=== PATIENT | female | born 1950 | race Caucasian/White ===

== ENCOUNTER 2022-12-03 11:03 | Outpatient (OUT) | payer MEDICARE, SELFPAY ==
[2022-12-03 11:54] LABS: Basophils Percent Auto 0.3 % (0.2-2.0); Eosinophils Absolute Auto 0.1 10^3/uL (0.0-0.7); Hematocrit 36.5 % (36.0-48.0); Hemoglobin 11.9 g/dL (12.0-16.0); Immature Granulocytes Abs Auto 0.01 10^3/uL (0.00-0.03); Immature Granulocytes Pct Auto 0.3 % (0.0-0.5); Lymphocytes Absolute Auto 0.7 10^3/uL (1.2-3.8); Lymphocytes Percent Auto 21.3 % (20.5-60.0); Mean Corpuscular HGB Conc 32.6 g/dL (29.9-35.2); Mean Corpuscular Hemoglobin 30.4 pg (26.7-34.0); Mean Corpuscular Volume 93.4 fL (81.0-99.0); Mean Platelet Volume 10.2 fL (9.5-13.5); Monocytes Absolute Auto 0.3 10^3/uL (0.3-0.8); Monocytes Percent Auto 9.8 % (1.7-12.0); Neutrophils Absolute Auto 2.3 10^3/uL (1.4-6.5); Neutrophils Percent Auto 66.3 % (43.0-75.0); Platelet Count 219 10^3/uL (150-450); Red Blood Count 3.91 10^6/uL (4.20-5.40); Red Cell Distribution Width 13.7 % (11.0-15.0); White Blood Count 3.5 10^3/uL (4.0-11.0)
[2022-12-03 12:03] LABS: Estimated Average Glucose 111 mg/dL; Glycohemoglobin A1C 5.5 % (4.5-6.2)
[2022-12-03 12:40] LABS: Alanine Aminotransferase 23 U/L (14-59); Albumin Globulin Ratio 1.4; Albumin Level 4.3 g/dL (3.4-5.0); Alkaline Phosphatase 48 U/L (46-116); Anion Gap 7.9; Aspartate Amino Transferase 24 U/L (15-37); BUN Creatinine Ratio 25.7; Bilirubin Total 0.4 mg/dL (0.2-1.0); Calcium 9.3 mg/dL (8.5-10.1); Carbon Dioxide 31.2 mmol/L (21.0-32.0); Chloride 105 mmol/L (98-107); Chol HDL Ratio 2.2; Cholesterol 197 mg/dL (<=200); Estimated GFR (African America >60 (>=60); Estimated GFR (Non-African Ame >60 (>=60); Free T3 2.46 pg/mL (2.18-3.98); Glucose 90 mg/dL (74-106); HDL Cholesterol 89 mg/dL (40-60); Potassium 4.1 mmol/L (3.5-5.1); Sodium 140 mmol/L (136-145); Thyroid Stimulating Hormone 2.049 uIU/mL (0.358-3.740); Total Protein 7.3 g/dL (6.4-8.2); Triglycerides 69 mg/dL (<=150); VLDL CHOLESTEROL 13.8 mg/dL
[2022-12-04 11:12] LABS: Insulin 2.7 uIU/mL (2.6-24.9)
== END 2022-12-03 11:04 | disposition home or self-care (01) ==
LOC: LAB 11:06
PROVIDERS: PCP Nurse Practitioner Family; Visit Provider Nurse Practitioner Family
DX: I10 Essential (primary) hypertension (principal)
CPT/HCPCS: 36415; 80053; 80061; 82306; 83036; 83525; 83540; 84436; 84443; 84481; 85025

== ENCOUNTER 2023-01-02 09:45 | Outpatient (OUT) | payer MEDICARE, SELFPAY ==
[2023-01-02 09:54] LABS: Basophils Percent Auto 0.2 % (0.2-2.0); Eosinophils Absolute Auto 0.1 10^3/uL (0.0-0.7); Eosinophils Percent Auto 2.1 % (0.9-7.0); Hematocrit 37.7 % (36.0-48.0); Hemoglobin 12.1 g/dL (12.0-16.0); Immature Granulocytes Abs Auto 0.01 10^3/uL (0.00-0.03); Immature Granulocytes Pct Auto 0.2 % (0.0-0.5); Lymphocytes Absolute Auto 0.9 10^3/uL (1.2-3.8); Lymphocytes Percent Auto 21.5 % (20.5-60.0); Mean Corpuscular HGB Conc 32.1 g/dL (29.9-35.2); Mean Corpuscular Hemoglobin 30.9 pg (26.7-34.0); Mean Corpuscular Volume 96.2 fL (81.0-99.0); Mean Platelet Volume 9.8 fL (9.5-13.5); Monocytes Absolute Auto 0.4 10^3/uL (0.3-0.8); Platelet Count 209 10^3/uL (150-450); Red Blood Count 3.92 10^6/uL (4.20-5.40); Red Cell Distribution Width 13.2 % (11.0-15.0); White Blood Count 4.4 10^3/uL (4.0-11.0)
== END 2023-01-02 09:46 | disposition home or self-care (01) ==
LOC: LAB 09:45
PROVIDERS: PCP Nurse Practitioner Family; Visit Provider Nurse Practitioner Family
DX: R79.89 Other specified abnormal findings of blood chemistry (principal)
CPT/HCPCS: 36415; 85025

== ENCOUNTER 2023-04-01 09:51 | Outpatient (OUT) | payer MEDICARE, SELFPAY ==
--- NOTE | 2023-04-01 09:55 | MM_ITS ---
Patient Name: DAVID DOUGLASS MR#: [id number] : 1950 Exam Date: 04/01/2023 Ordering Doctor: SRIRAM ALICEA CNP RADIOLOGY REPORT PROCEDURE: MM TOMOSYNTHESIS SCREENING BI COMPARISON: MG MAMM SCREEN 3D RUKHSANA CAD, 03/22/2021. MG MAMM SCREEN 3D RUKHSANA CAD, 03/26/2022. INDICATIONS: screening Calculator Name NCI Breast Cancer Risk Assessment Tool 5 Year Breast Cancer Risk 1.60% Lifetime Breast Cancer Risk 4.10% Personal Breast Cancer No Personal Ovarian Cancer No Treatments None Family Cancers Grandfather-paternal with breast cancer at age 70; Father with stomach cancer at age 55; Sister with lung cancer at age 50. LOCATION: [facility] BREAST COMPOSITION: Scattered areas fibroglandular density. FINDINGS: DIAGNOSTIC CATEGORY 2--BENIGN FINDING. NO CHANGE FROM COMPARISON. Scattered benign-appearing calcifications are present. RIGHT BREAST: No significant suspicious finding. Stable focal asymmetry upper outer quadrant. LEFT BREAST: No significant suspicious finding. RECOMMENDATIONS: ROUTINE MAMMOGRAM AND CLINICAL EVALUATION IN 12 MONTHS. PLEASE NOTE: A NORMAL MAMMOGRAM DOES NOT EXCLUDE THE POSSIBILITY OF BREAST CANCER. A CLINICALLY SUSPICIOUS PALPABLE LUMP SHOULD BE BIOPSIED. Dictated by: Sanju Pereira MD on 04/01/2023 at 11:20 Approved by: Sanju Pereira MD on 04/01/2023 at 11:21
== END 2023-04-01 09:52 | disposition home or self-care (01) ==
LOC: MAMMO 09:51
PROVIDERS: PCP Nurse Practitioner Family; Visit Provider Nurse Practitioner Family
DX: Z12.31 Encounter for screening mammogram for malignant neoplasm of breast (principal); Z80.3 Family history of malignant neoplasm of breast; Z80.0 Family history of malignant neoplasm of digestive organs; Z80.1 Family history of malignant neoplasm of trachea, bronchus and lung
CPT/HCPCS: 77063; 77067

== ENCOUNTER 2023-12-18 10:49 | Outpatient (OUT) | payer MEDICARE, SELFPAY ==
--- OUTSIDE RECORDS SUMMARY | 2023-12-18 11:07 | XMS_ITS | CCD ---
Author Organization [facility] Care Team Providers Care Planer Feeder Name Role Phone MCKENZIE GARCIA Unavailable Unavailable ELISHA JOSUE Unavailable Unavailable MCKENZIE GARCIA Unavailable Unavailable KRISTYN WATSON Attending Unavailable KRISTYN WATSON Consulting Unavailable SHIRLEY, AHMAD Admitting Unavailable DEANNE, SRIRAM Primary Care Unavailable STEVE, DR MARY Ren Consulting Unavailable DEANNE, SRIRAM Attending Unavailable DEANNE, SRIRAM Primary Care Unavailable DEANNE, SRIRAM Admitting Unavailable DEANNE, SRIRAM Consulting Unavailable DEANNE, SRIRAM Primary Care Unavailable SERGIO, DR RENEE Consulting Unavailable SERGIO, DR RENEE Admitting Unavailable DR THELMA SIN Attending Unavailable DEANNE, SRIRAM Primary Care Unavailable DEANNE, SRIRAM Attending Unavailable DEANNE, SRIRAM Admitting Unavailable DEANNE, SRIRAM Consulting Unavailable DEANNE, SRIRAM Primary Care Unavailable ANTONIO, DR JAIRO Pablo Consulting Unavailable DEANNE, SRIRAM Attending Unavailable DEANNE, SRIRAM Admitting Unavailable DEANNE, SRIRAM Consulting Unavailable DEANNE, SRIRAM Primary Care Unavailable DEANNE, SRIRAM Consulting Unavailable DEANNE, SRIRAM Attending Unavailable DEANNE, SRIRAM Admitting Unavailable DR THELMA SIN Consulting Unavailable DR THELMA SIN Admitting Unavailable DR THELMA SIN Attending Unavailable DEANNE, SRIRAM Primary Care Unavailable DEANNE, SRIRAM Attending Unavailable DEANNE, SRIRAM Admitting Unavailable DEANNE, SRIRAM Consulting Unavailable DEANNE, SRIRAM Primary Care Unavailable DEANNE, SRIRAM Admitting Unavailable DEANNE, SRIRAM Attending Unavailable DEANNE, SRIRAM Consulting Unavailable DEANNE, SRIRAM Primary Care Unavailable Problems Active Problems Problem Classification Problem Date Documented Da te Episodic/Chronic Deficiency and other anemia (5 sources) Anemia, unspecified; Translations: [ANEMIA UNSPECIFIED] Onset: 11-21-2021 Episodic Diseases of white blood cells (4 sources) Decreased white blood cell count, unspecified; Translations: [DECREASED WBC COUNT UNSPECIFIED] Onset: 12-08-2021 Chronic Disorders of lipid metabolism (1 source) Hyperlipidemia, unspecified; Translations: [HYPERLIPIDEMIA UNSPECIFIED] Onset: 11-21-2021 Chronic Menopausal disorders (1 source) Other primary ovarian failure; Translations: [OTHER PRIMARY OVARIAN FAILURE] Onset: 12-04-2021 Chronic Thyroid disorders (8 sources) Hypothyroidism, unspecified; 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] Onset: 06-26-2021 Chronic Past or Other Problems Problem Classification Problem Date Documented Da te Episodic/Chronic Diabetes mellitus without complication (1 source) Other abnormal glucose; Translations: [OTHER ABNORMAL GLUCOSE] Onset: 11-21-2021 Episodic Genitourinary symptoms and ill-defined conditions (4 sources) Hematuria, unspecified; Translations: [HEMATURIA UNSPECIFIED] Onset: 08-22-2021 Episodic Other bone disease and musculoskeletal deformities (4 sources) Other specified disorders of bone density and structure, unspecified site; Translations: [OTH D/O BONE DEN STRUCT UNS SITE] Onset: 11-30-2021 Episodic Other gastrointestinal disorders (4 sources) Diarrhea, unspecified; Translations: [DIARRHEA UNSPECIFIED] Onset: 09-26-2021 Episodic Urinary tract infections (4 sources) Urinary tract infection, site not specified; Translations: [UTI SITE NOT SPECIFIED] Onset: 09-01-2021 Episodic Results Test Name Value Interpretation Reference Range Facility MG MAMM SCREEN 3D RUKHSANA CADon 03-26-2022 MG MAMM SCREEN 3D RUKHSANA CAD Patient: MARIA DOUGLASS Exam Date: 03/26/2022 : 1950 Gender:F Ordering : SRIRAM ALICEA [facility] Admission #: [id number] Family : Order #: [id number] CLICK HERE TO VIEW EXAM RADIOLOGY REPORT PROCEDURE: MAMMOGRAM SCREENING 3D BILATERAL CAD COMPARISON: MG MAMM SCREEN RUKHSANA W CAD, 03/21/2020. MG MAMM SCREEN 3D RUKHSANA CAD, 03/22/2021. INDICATIONS: Screening mammography Calculator Name NCI Breast Cancer Risk Assessment Tool 5 Year Breast Cancer Risk 1.60% Lifetime Breast Cancer Risk 4.30% Personal Breast Cancer No Personal Ovarian Cancer No Treatments None Family Cancers Grandfather-paternal with breast cancer at age 70; Father with stomach cancer at age 55; Sister with lung cancer at age 50. LOCATION: [facility] BREAST COMPOSITION: Scattered areas fibroglandular density. FINDINGS: DIAGNOSTIC CATEGORY 2--BENIGN FINDING. NO CHANGE FROM COMPARISON. Scattered benign-appearing calcifications are present. Scattered benign-appearing lymph nodes are present. RIGHT BREAST: No significant suspicious finding. LEFT BREAST: No significant suspicious finding. RECOMMENDATIONS: ROUTINE MAMMOGRAM AND CLINICAL EVALUATION IN 12 MONTHS. PLEASE NOTE: A NORMAL MAMMOGRAM DOES NOT EXCLUDE THE POSSIBILITY OF BREAST CANCER. A CLINICALLY SUSPICIOUS PALPABLE LUMP SHOULD BE BIOPSIED. Dictated by: Mary Wilson MD on 03/26/2022 at 11:00 Approved by: Mary Wilson MD on 03/26/2022 at 11:02 Normal [facility] CBC AUTO DIFFon 01-08-2022 BASO # 0.0 103/ul Normal 0.0-0.1 [facility] Comment on above: Performed By: #### C BC #### [facility] [address] [place] [address] Dr. Ray Fabian Basophils/100 WBC (Bld) 0.5 % Normal 0.2-2.0 [facility] Comment on above: Performed By: #### C BC #### [facility] [address] [place] [address] Dr. Ray Fabian EO # 0.1 103/ul Normal 0.0-0.7 [facility] Comment on above: Performed By: #### C BC #### [facility] [address] [place] [address] Dr. Ray Fabian Eosinophils/100 WBC (Bld) 3.0 % Normal 0.9-7.0 [facility] Comment on above: Performed By: #### C BC #### [facility] [address] [address] [address] Ray Fabian Erythrocyte distribution width (RBC) [Ratio] 14.0 % Normal 11.0-15.0 [facility] Comment on above: Performed By: #### C BC #### [facility] [address] [place] [address] Dr. Ray Fabian Hematocrit (Bld) [Volume fraction] 37.6 % Normal 36.0-48.0 [facility] Comment on above: Performed By: #### C BC #### [facility] [address] [place] [address] Dr. Ray Fabian Hemoglobin (Bld) [Mass/Vol] 12.1 g/dL Normal 12.0-16.0 [facility] Comment on above: Performed By: #### C BC #### [facility] [address] [place] [address] Dr. Ray Fabian IG # 0.01 10e3/ul Normal 0.00-0.03 [facility] Comment on above: Performed By: #### C BC #### [facility] [address] [place] [address] Dr. Ray Fabian IG % 0.3 % Normal 0.0-0.5 [facility] Comment on above: Performed By: #### C BC #### [facility] [address] [place] [address] Dr. Ray Fabian LYMPH # 1.3 103/ul Normal 1.2-3.8 [facility] Comment on above: Performed By: #### C BC #### [facility] [address] [place] [address] Dr. Ray Fabian Lymphocytes/100 WBC (Bld) 32.9 % Normal 20.5-60.0 [facility] Comment on above: Performed By: #### C BC #### [facility] [address] [place] [address] Dr. Ray Fabian MANUAL DIFF REQ NO Normal [facility] Comment on above: Performed By: #### C BC #### [facility] [address] [place] [address] Dr. Ray Fabian MCH (RBC) [Entitic mass] 30.3 pg Normal 26.7-34.0 [facility] Comment on above: Performed By: #### C BC #### [facility] [address] [place] [address] Dr. Ray Fabian MCHC (RBC) [Mass/Vol] 32.2 g/dL Normal 29.9-35.2 [facility] Comment on above: Performed By: #### C BC #### [facility] [address] [address] [address] Ray Fabian MCV (RBC) [Entitic vol] 94.2 fL Normal 81.0-99.0 [facility] Comment on above: Performed By: #### C BC #### [facility] [address] [address] [address] Ray Fabian MONO # 0.4 103/ul Normal 0.3-0.8 [facility] Comment on above: Performed By: #### C BC #### [facility] [address] [address] [address] Ray Fabian Monocytes/100 WBC (Bld) 9.8 % Normal 1.7-12.0 [facility] Comment on above: Performed By: #### C BC #### [facility] [address] [address] [address] Ray Fabian NEUT # 2.1 103/ul Normal 1.4-6.5 [facility] Comment on above: Performed By: #### C BC #### [facility] [address] [place] [address] Dr. Ray Fabain Neutrophils/100 WBC (Bld) 53.5 % Normal 43.0-75.0 [facility] Comment on above: Performed By: #### C BC #### [facility] [address] [address] [address] Ray Fabian Platelet mean volume (Bld) [Entitic vol] 9.7 fL Normal 9.5-13.5 [facility] Comment on above: Performed By: #### C BC #### [facility] [address] [place] [address] Dr. Ray Fabian PLT 205 103/ul Normal 150-450 [facility] Comment on above: Performed By: #### C BC #### [facility] [address] [address] [address] Ray Fabian RBC 3.99 106/ul Critically low 4.20-5.40 [facility] Comment on above: Performed By: #### C BC #### [facility] [address] [address] [address] Ray Fabian WBC 4.0 103/ul Normal 4.0-11.0 [facility] Comment on above: Performed By: #### C BC #### [facility] [address] [place] [address] Dr. Ray Fabian CBC AUTO DIFFon 12-08-2021 BASO # 0.0 103/ul Normal 0.0-0.1 [facility] Comment on above: Performed By: #### C BC #### [facility] [address] [place] [address] Dr. Ray Fabian Basophils/100 WBC (Bld) 0.5 % Normal 0.2-2.0 [facility] Comment on above: Performed By: #### C BC #### [facility] [address] [place] [address] Dr. Ray Fabian EO # 0.1 103/ul Normal 0.0-0.7 [facility] Comment on above: Performed By: #### C BC #### [facility] [address] [place] [address] Dr. Ray Fabian Eosinophils/100 WBC (Bld) 2.7 % Normal 0.9-7.0 [facility] Comment on above: Performed By: #### C BC #### [facility] [address] [place] [address] Dr. Ray Fabian Erythrocyte distribution width (RBC) [Ratio] 14.9 % Normal 11.0-15.0 [facility] Comment on above: Performed By: #### C BC #### [facility] [address] [place] [address] Dr. Ray Fabian Hematocrit (Bld) [Volume fraction] 35.3 % Critically low 36.0-48.0 [facility] Comment on above: Performed By: #### C BC #### [facility] [address] [place] [address] Dr. Ray Fabian Hemoglobin (Bld) [Mass/Vol] 11.4 g/dL Critically low 12.0-16.0 [facility] Comment on above: Performed By: #### C BC #### [facility] [address] [place] [address] Dr. Ray Fabian IG # 0.00 10e3/ul Normal 0.00-0.03 [facility] Comment on above: Performed By: #### C BC #### [facility] [address] [place] [address] Dr. Ray Fabian IG % 0.0 % Normal 0.0-0.5 [facility] Comment on above: Performed By: #### C BC #### [facility] [address] [place] [address] Dr. Ray Fabian LYMPH # 1.0 103/ul Critically low 1.2-3.8 [facility] Comment on above: Performed By: #### C BC #### [facility] [address] [place] [address] Dr. Ray Fabian Lymphocytes/100 WBC (Bld) 25.9 % Normal 20.5-60.0 [facility] Comment on above: Performed By: #### C BC #### [facility] [address] [place] [address] Dr. Ray Fabian MANUAL DIFF REQ NO Normal [facility] Comment on above: Performed By: #### C BC #### [facility] [address] [place] [address] Dr. Ray Fabian MCH (RBC) [Entitic mass] 29.8 pg Normal 26.7-34.0 [facility] Comment on above: Performed By: #### C BC #### [facility] [address] [place] [address] Dr. Ray Fabian MCHC (RBC) [Mass/Vol] 32.3 g/dL Normal 29.9-35.2 [facility] Comment on above: Performed By: #### C BC #### [facility] [address] [place] [address] Dr. Ray Fabian MCV (RBC) [Entitic vol] 92.4 fL Normal 81.0-99.0 [facility] Comment on above: Performed By: #### C BC #### [facility] [address] [place] [address] Dr. Ray Fabian MONO # 0.3 103/ul Normal 0.3-0.8 [facility] Comment on above: Performed By: #### C BC #### [facility] [address] [place] [address] Dr. Ray Fabian Monocytes/100 WBC (Bld) 8.4 % Normal 1.7-12.0 [facility] Comment on above: Performed By: #### C BC #### [facility] [address] [place] [address] Dr. Ray Fabian NEUT # 2.3 103/ul Normal 1.4-6.5 [facility] Comment on above: Performed By: #### C BC #### [facility] [address] [place] [address] Dr. Ray Fabian Neutrophils/100 WBC (Bld) 62.5 % Normal 43.0-75.0 [facility] Comment on above: Performed By: #### C BC #### [facility] [address] [place] [address] Dr. Ray Fabian Platelet mean volume (Bld) [Entitic vol] 9.7 fL Normal 9.5-13.5 [facility] Comment on above: Performed By: #### C BC #### [facility] [address] [place] [address] Dr. Ray Fabian PLT 218 103/ul Normal 150-450 [facility] Comment on above: Performed By: #### C BC #### [facility] [address] [place] [address] Dr. Ray Fabian RBC 3.82 106/ul Critically low 4.20-5.40 [facility] Comment on above: Performed By: #### C BC #### [facility] [address] [place] [address] Dr. Ray Fabian WBC 3.7 103/ul Critically low 4.0-11.0 [facility] Comment on above: Performed By: #### C BC #### [facility] [address] [place] [address] Dr. Ray Fabian XR DEXA BONE DENSITYon 11-30 XR DEXA BONE DENSITY EXAMINATION: XR DEXA BONE DENSITY, 11/30/2021 9:03 AM EDT HISTORY: Bone density finding COMPARISON: DEXA bone densitometry 12/02/2018 TECHNIQUE: Dual-energy X-ray absorptiometry (DEXA) bone density study performed for the axial skeleton. FINDINGS: SPINE ANALYSIS: Average bone mineral density is 1.239 g/cm2. T-score (standard deviation relative to young adult mean): 0.5 . -2.3% change since prior study. HIP ANALYSIS: Lowest bone mineral density is within the right femoral trochanter, 0.762 g/cm2. T-score (standard deviation relative to young adult mean): -0.8 . +1.9% change since prior study. IMPRESSION: [employer] Classification: Normal - Low Fracture Risk Electronically authenticated by: JAIRO ALVAREZ Date: 2021-11-30 11:50 Normal [facility] INSULINon 11-21-2021 Insulin 3.9 uIU/mL Normal 2.6-24.9 [facility] Comment on above: Performed By: #### C BC #### [facility] [address] [place] [address] Dr. Ray Fabian T4, T3U, FTI LABCORPon 11-21 Free Thyroxine Index 1.9 Normal 1.2-4.9 [facility] Comment on above: Performed By: #### C BC #### [facility] [address] [place] [address] Dr. Ray Fabian T3 Uptake 27 % Normal 24-39 [facility] Comment on above: Performed By: #### C BC #### [facility] [address] [place] [address] Dr. aRy Fabian T4 [Mass/Vol] 6.9 ug/dL Normal 4.5-12.0 [facility] Comment on above: Performed By: #### C BC #### [facility] [address] [place] [address] Dr. Ray Fabian CBC AUTO DIFFon 11-20-2021 BASO # 0.0 103/ul Normal 0.0-0.1 [facility] Comment on above: Performed By: #### C BC #### [facility] [address] [place] [address] Dr. Ray Fabian Basophils/100 WBC (Bld) 0.3 % Normal 0.2-2.0 [facility] Comment on above: Performed By: #### C BC #### [facility] [address] [place] [address] Dr. Ray Fabian EO # 0.1 103/ul Normal 0.0-0.7 [facility] Comment on above: Performed By: #### C BC #### [facility] [address] [place] [address] Dr. Ray Fabian Eosinophils/100 WBC (Bld) 2.4 % Normal 0.9-7.0 [facility] Comment on above: Performed By: #### C BC #### [facility] [address] [place] [address] Dr. Ray Fabian Erythrocyte distribution width (RBC) [Ratio] 14.7 % Normal 11.0-15.0 [facility] Comment on above: Performed By: #### C BC #### [facility] [address] [place] [address] Dr. Ray Fabian Hematocrit (Bld) [Volume fraction] 40.0 % Normal 36.0-48.0 [facility] Comment on above: Performed By: #### C BC #### [facility] [address] [place] [address] Dr. Ray Fabian Hemoglobin (Bld) [Mass/Vol] 13.0 g/dL Normal 12.0-16.0 [facility] Comment on above: Performed By: #### C BC #### [facility] [address] [place] [address] Dr. Ray Fabian IG # 0.01 10e3/ul Normal 0.00-0.03 [facility] Comment on above: Performed By: #### C BC #### [facility] [address] [place] [address] Dr. Ray Fabian IG % 0.3 % Normal 0.0-0.5 [facility] Comment on above: Performed By: #### C BC #### [facility] [address] [address] [address] Ray Fabian LYMPH # 1.1 103/ul Critically low 1.2-3.8 [facility] Comment on above: Performed By: #### C BC #### [facility] [address] [place] [address] Dr. Ray Fabian Lymphocytes/100 WBC (Bld) 31.8 % Normal 20.5-60.0 [facility] Comment on above: Performed By: #### C BC #### [facility] [address] [place] [address] Dr. Ray Fabian MANUAL DIFF REQ NO Normal [facility] Comment on above: Performed By: #### C BC #### [facility] [address] [place] [address] Dr. Ray Fabian MCH (RBC) [Entitic mass] 29.7 pg Normal 26.7-34.0 [facility] Comment on above: Performed By: #### C BC #### [facility] [address] [place] [address] Dr. Ray Fabian MCHC (RBC) [Mass/Vol] 32.5 g/dL Normal 29.9-35.2 [facility] Comment on above: Performed By: #### C BC #### [facility] [address] [place] [address] Dr. Ray Fabian MCV (RBC) [Entitic vol] 91.3 fL Normal 81.0-99.0 [facility] Comment on above: Performed By: #### C BC #### [facility] [address] [place] [address] Dr. Ray Fabian MONO # 0.3 103/ul Normal 0.3-0.8 [facility] Comment on above: Performed By: #### C BC #### [facility] [address] [place] [address] Dr. Ray Fabian Monocytes/100 WBC (Bld) 7.6 % Normal 1.7-12.0 [facility] Comment on above: Performed By: #### C BC #### [facility] [address] [address] [address] Ray Fabian NEUT # 2.0 103/ul Normal 1.4-6.5 [facility] Comment on above: Performed By: #### C BC #### [facility] [address] [address] [address] Ray Fabian Neutrophils/100 WBC (Bld) 57.6 % Normal 43.0-75.0 [facility] Comment on above: Performed By: #### C BC #### [facility] [address] [address] [address] Ray Fabian Platelet mean volume (Bld) [Entitic vol] 9.6 fL Normal 9.5-13.5 [facility] Comment on above: Performed By: #### C BC #### [facility] [address] [place] [address] Dr. Ray Fabian PLT 209 103/ul Normal 150-450 [facility] Comment on above: Performed By: #### C BC #### [facility] [address] [address] [address] Ray Fabian RBC 4.38 106/ul Normal 4.20-5.40 [facility] Comment on above: Performed By: #### C BC #### [facility] [address] [address] [address] Ray Fabian WBC 3.4 103/ul Critically low 4.0-11.0 [facility] Comment on above: Performed By: #### C BC #### [facility] [address] [place] [address] Dr. Ray Fabian GLYCOHEMOGLOBIN A1Con 2021 ADA RECOMMENDATION SEE BELOW Normal [facility] Comment on above: Result Comment: ADA RECOMMENDED LIMIT 4.0 - 6.0 ADA THERAPEUTIC TARGET < 7.0 ACTION SUGGESTED > 7.0 Performed By: #### A 1C #### [facility] [address] [place] [address] Dr. Ray Fabian Glucose [Mass/Vol] 120 mg/dL Normal [facility] Comment on above: Performed By: #### A 1C #### [facility] [address] [address] [address] Ray Fabian HbA1c (Bld) [Mass fraction] 5.8 % Normal 4.5-6.2 [facility] Comment on above: Performed By: #### A 1C #### [facility] [address] [place] [address] Dr. Ray Fabian IRONon 11-20-2021 Iron [Mass/Vol] 96.0 ug/dL Normal 50.0-170.0 [facility] Comment on above: Performed By: #### I TASHIA #### [facility] [address] [place] [address] Dr. Ray Fabian LIPID PROFILEon 11-20-2021 CHOL-HDL RATIO NORM SEE BELOW Normal [facility] Comment on above: Result Comment: 3.3 - 4.4 LOW RISK 4.4 - 7.1 AVERAGE RISK 7.1 - 11.0 MODERATE RISK >11.0 HIGH RISK Performed By: #### C BC #### [facility] [address] [place] [address] Dr. Ray Fabian Cholesterol [Mass/Vol] 221 mg/dL Critically high <=200 [facility] Comment on above: Performed By: #### C BC #### [facility] [address] [place] [address] Dr. Ray Fabian Cholesterol in HDL [Mass/Vol] 88 mg/dL Critically high 40-60 [facility] Comment on above: Performed By: #### C BC #### [facility] [address] [place] [address] Dr. Ray Fabian Cholesterol in LDL [Mass/Vol] 116.4 mg/dL Normal [facility] Comment on above: Performed By: #### C BC #### [facility] [address] [place] [address] Dr. Ray Fabian Cholesterol.total/ Cholesterol in HDL [Mass ratio] 2.5 {ratio} Normal [facility] Comment on above: Performed By: #### C BC #### [facility] [address] [place] [address] Dr. Ray Fabian HDL NORMAL > or = 60 mg/dl - LO W CARDIOVASCULAR RISK <40 mg/dl - HIGH CARDIOVASCULAR RISK Normal [facility] Comment on above: Performed By: #### C BC #### [facility] [address] [place] [address] Dr. Ray Fabian LDL CALC NORMAL SEE BELOW Normal [facility] Comment on above: Result Comment: <100 mg/dl OPTIMAL 100 - 129 mg/dl NEAR OR ABOVE OPTIMAL 130 - 159 mg/dl BORDERLINE HIGH 160 - 189 mg/dl HIGH >190 mg/dl VERY HIGH Performed By: #### C BC #### [facility] [address] [place] [address] Dr. Ray Fabian Triglyceride [Mass/Vol] 83 mg/dL Normal <=150 [facility] Comment on above: Performed By: #### C BC #### [facility] [address] [place] [address] Dr. Ray Fabian VLDL CALC 16.6 mg/dL Normal [facility] Comment on above: Performed By: #### C BC #### [facility] [address] [place] [address] Dr. Ray Fabian PROF 14(COMP METB)on 022 Albumin [Mass/Vol] 4.3 g/dL Normal 3.4-5.0 [facility] Comment on above: Performed By: #### C BC #### [facility] [address] [place] [address] Dr. Ray Fabian Albumin/Globulin [Mass ratio] 1.4 {ratio} Normal [facility] Comment on above: Performed By: #### C BC #### [facility] [address] [place] [address] Dr. Ray Fabian ALP [Catalytic activity/Vol] 50 U/L Normal 46-116 [facility] Comment on above: Performed By: #### C BC #### [facility] [address] [place] [address] Dr. Ray Fabian ALT [Catalytic activity/Vol] 24 U/L Normal 14-59 [facility] Comment on above: Performed By: #### C BC #### [facility] [address] [place] [address] Dr. Ray Fabian Anion gap [Moles/Vol] 12.0 mmol/L Normal [facility] Comment on above: Performed By: #### C BC #### [facility] [address] [place] [address] Dr. Ray Fabian AST [Catalytic activity/Vol] 20 U/L Normal 15-37 [facility] Comment on above: Performed By: #### C BC #### [facility] [address] [place] [address] Dr. Ray Fabian Bilirubin [Mass/Vol] 0.6 mg/dL Normal 0.2-1.0 [facility] Comment on above: Performed By: #### C BC #### [facility] [address] [place] [address] Dr. Ray Fabian Calcium [Mass/Vol] 9.3 mg/dL Normal 8.5-10.1 [facility] Comment on above: Performed By: #### C BC #### [facility] [address] [place] [address] Dr. Ray Fabian Chloride [Moles/Vol] 103 mmol/L Normal 98-107 [facility] Comment on above: Performed By: #### C BC #### [facility] [address] [place] [address] Dr. Ray Fabian CO2 [Moles/Vol] 30.1 mmol/L Normal 21.0-32.0 [facility] Comment on above: Performed By: #### C BC #### [facility] [address] [place] [address] Dr. Ray Fabian Creatinine [Mass/Vol] 0.76 mg/dL Normal 0.55-1.02 [facility] Comment on above: Performed By: #### C BC #### [facility] [address] [place] [address] Dr. Ray Fabian EGFR-AF OMANI >60 Normal >=60 [facility] Comment on above: Performed By: #### C BC #### [facility] [address] [place] [address] Dr. Ray Fabian EGFR-NON AF OMANI >60 Normal >=60 [facility] Comment on above: Performed By: #### C BC #### [facility] [address] [address] [address] Ray Fabian Globulin (S) [Mass/Vol] 3.0 g/dL Normal [facility] Comment on above: Performed By: #### C BC #### [facility] [address] [address] [address] Ray Fabian Glucose [Mass/Vol] 101 mg/dL Normal 74-106 [facility] Comment on above: Performed By: #### C BC #### [facility] [address] [address] [address] Ray Fabian Potassium [Moles/Vol] 4.1 mmol/L Normal 3.5-5.1 [facility] Comment on above: Performed By: #### C BC #### [facility] [address] [place] [address] Dr. Ray Fabian Protein [Mass/Vol] 7.3 g/dL Normal 6.4-8.2 [facility] Comment on above: Performed By: #### C BC #### [facility] [address] [place] [address] Dr. Ray Fabian Sodium [Moles/Vol] 141 mmol/L Normal 136-145 [facility] Comment on above: Performed By: #### C BC #### [facility] [address] [place] [address] Dr. Ray Fabian Urea nitrogen [Mass/Vol] 16.0 mg/dL Normal 7.0-18.0 [facility] Comment on above: Performed By: #### C BC #### [facility] [address] [place] [address] Dr. Ray Fabian Urea nitrogen/Creatinin e [Mass ratio] 21.1 mg/mg Normal [facility] Comment on above: Performed By: #### C BC #### [facility] [address] [place] [address] Dr. Ray Fabian TSHon 11-20-2021 TSH 3.003 uIU/mL Normal 0.358-3.740 [facility] Comment on above: Performed By: #### C BC #### [facility] [address] [place] [address] Dr. Ray Fabian GI PANEL (PCR)on 09-26-2021 Adenovirus F 40/41 Not detected Normal NOT DETECTED [facility] Comment on above: Performed By: #### G IPANEL #### [facility] [address] [place] [address] Dr. Ray Fabian Astrovirus Not detected Normal NOT DETECTED [facility] Comment on above: Performed By: #### G IPANEL #### [facility] [address] [place] [address] Dr. Ray Benavidez. Diff toxin A/B Not detected Normal NOT DETECTED [facility] Comment on above: Performed By: #### G IPANEL #### [facility] [address] [place] [address] Dr. Ray Fabian Campylobacter Not detected Normal NOT DETECTED [facility] Comment on above: Performed By: #### G IPANEL #### [facility] [address] [place] [address] Dr. Ray Fabian Cryptosporidium Not detected Normal NOT DETECTED [facility] Comment on above: Performed By: #### G IPANEL #### [facility] [address] [place] [address] Dr. Ray Fabian Cyclos. Cayetanensis Not detected Normal NOT DETECTED [facility] Comment on above: Performed By: #### G IPANEL #### [facility] [address] [place] [address] Dr. Ray Fabian E. Coli O157 Not Applicable Normal Not Applicable [facility] Comment on above: Performed By: #### G IPANEL #### [facility] [address] [place] [address] Dr. Ray Fabian E. histolytica Not detected Normal NOT DETECTED [facility] Comment on above: Performed By: #### G IPANEL #### [facility] [address] [place] [address] Dr. Ray Fabian EAEC Not detected Normal NOT DETECTED [facility] Comment on above: Performed By: #### G IPANEL #### [facility] [address] [place] [address] Dr. Ray Fabian EIEC Not detected Normal NOT DETECTED [facility] Comment on above: Performed By: #### G IPANEL #### [facility] [address] [place] [address] Dr. Ray Fabian EPEC Not detected Normal NOT DETECTED [facility] Comment on above: Performed By: #### G IPANEL #### [facility] [address] [place] [address] Dr. Ray Fabian ETEC Not detected Normal NOT DETECTED [facility] Comment on above: Performed By: #### G IPANEL #### [facility] [address] [place] [address] Dr. Ray Ardon Lamblia Not detected Normal NOT DETECTED [facility] Comment on above: Performed By: #### G IPANEL #### [facility] [address] [place] [address] Dr. Ray CHAVEZ CONTROLS PASSED Normal [facility] Comment on above: Performed By: #### G IPANEL #### [facility] [address] [place] [address] Dr. Ray BURT HEADER GI PANEL BACTERIA Normal [facility] Comment on above: Performed By: #### G IPANEL #### [facility] [address] [place] [address] Dr. Ray DORADO ECOLI GI PANEL DIARRHEAGEN IC E.COLI / SHIGELLA Normal [facility] Comment on above: Performed By: #### G IPANEL #### [facility] [address] [place] [address] Dr. Ray DORADO INFO SEE BELOW [facility] Comment on above: Result Comment: EAEC - Enteroaggregative E. Coli EPEC- Enteropathogenic E. Coli ETEC- Enterotoxigenic E. Coli lt/st STEC- Shigella-like toxin-producing E. Coli stx1/stx2 EIEC- Shigella/Enteroinvasive E. Coli Performed By: #### G IPANEL #### [facility] [address] [address] [address] Ray DORADO PARASITES GI PANEL PARASITES Normal [facility] Comment on above: Performed By: #### G IPANEL #### [facility] [address] [place] [address] Dr. Ray DORADO VIRUS GI PANEL VIRUSES Normal [facility] Comment on above: Performed By: #### G IPANEL #### [facility] [address] [place] [address] Dr. Ray Fabian Norovirus GI/GII Not detected Normal NOT DETECTED [facility] Comment on above: Performed By: #### G IPANEL #### [facility] [address] [place] [address] Dr. Ray Fbaian P. Shigelloides Not detected Normal NOT DETECTED [facility] Comment on above: Performed By: #### G IPANEL #### [facility] [address] [place] [address] Dr. Ray Fabian Rotavirus A Not detected Normal NOT DETECTED [facility] Comment on above: Performed By: #### G IPANEL #### [facility] [address] [place] [address] Dr. Ray Fabian Salmonella Not detected Normal NOT DETECTED [facility] Comment on above: Performed By: #### G IPANEL #### [facility] [address] [place] [address] Dr. Ray Fabian Sapovirus Not detected Normal NOT DETECTED [facility] Comment on above: Performed By: #### G IPANEL #### [facility] [address] [place] [address] Dr. Ray Fabian STEC Not detected Normal NOT DETECTED [facility] Comment on above: Performed By: #### G IPANEL #### [facility] [address] [place] [address] Dr. Ray Fabian Vibrio Not detected Normal NOT DETECTED [facility] Comment on above: Performed By: #### G IPANEL #### [facility] [address] [place] [address] Dr. Ray Fabian Vibrio Cholera Not detected Normal NOT DETECTED [facility] Comment on above: Performed By: #### G IPANEL #### [facility] [address] [place] [address] Dr. Ray Will Enterocolitica Not detected Normal NOT DETECTED [facility] Comment on above: Performed By: #### G IPANEL #### [facility] [address] [place] [address] Dr. Ray Fabian CULTURE URINEon 09-01-2021 CULTURE URINE Culture Observations : No growth Normal [facility] Comment on above: Performed By: #### C BC #### [facility] [address] [place] [address] Dr. Ray Fabian UA RANDOM W/MICROSCOPICon BACTERIA NONE SEEN Normal NONE SEEN [facility] Comment on above: Performed By: #### U AMIC #### [facility] [address] [place] [address] Dr. Ray Fabian Bilirubin Ql (U) Negative Normal NEGATIVE [facility] Comment on above: Performed By: #### U AMIC #### [facility] [address] [place] [address] Dr. Ray Fabian CAST NONE SEEN Normal NONE SEEN [facility] Comment on above: Performed By: #### U AMIC #### [facility] [address] [place] [address] Dr. Ray Fabian Clarity (U) CLEAR Normal CLEAR [facility] Comment on above: Performed By: #### U AMIC #### [facility] [address] [place] [address] Dr. Ray Fabian Color (U) YELLOW Normal YELLOW [facility] Comment on above: Performed By: #### U AMIC #### [facility] [address] [place] [address] Dr. Ray Fabian Crystals LM Nom (Urine sed) NONE SEEN Normal NONE SEEN [facility] Comment on above: Performed By: #### U AMIC #### [facility] [address] [place] [address] Dr. Ray Fabian Epithelial cells LM Ql (Urine sed) NONE SEEN Normal NONE SEEN /RARE [facility] Comment on above: Performed By: #### U AMIC #### [facility] [address] [address] [address] Ray Fabian Glucose Ql (U) Negative Normal NEGATIVE [facility] Comment on above: Performed By: #### U AMIC #### [facility] [address] [address] [address] Ray Fabian Hemoglobin Ql (U) Negative Normal NEGATIVE [facility] Comment on above: Performed By: #### U AMIC #### [facility] [address] [address] [address] Ray Fabian Ketones Ql (U) Negative Normal NEGATIVE [facility] Comment on above: Performed By: #### U AMIC #### [facility] [address] [address] [address] Ray Fabian LEUKOCYTES Negative Normal NEGATIVE [facility] Comment on above: Performed By: #### U AMIC #### [facility] [address] [address] [address] Ray Fabian MUCOUS NONE SEEN Normal NONE SEEN [facility] Comment on above: Performed By: #### U AMIC #### [facility] [address] [address] [address] Ray Fabian Nitrite Ql (U) Negative Normal NEGATIVE [facility] Comment on above: Performed By: #### U AMIC #### [facility] [address] [place] [address] Dr. Ray Fabian pH (U) 6.0 [pH] Normal 5-9 [facility] Comment on above: Performed By: #### U AMIC #### [facility] [address] [address] [address] Ray Fabian RBC NONE SEEN Abnormal 0-2 [facility] Comment on above: Performed By: #### U AMIC #### [facility] [address] [place] [address] Dr. Ray Fabian SPEC GRAVITY 1.025 Normal 1.005-<=1.025 [facility] Comment on above: Performed By: #### U AMIC #### [facility] [address] [place] [address] Dr. Ray VILLAFANA PROTEIN Negative Normal NEGATIVE/ TRACE [facility] Comment on above: Performed By: #### U AMIC #### [facility] [address] [place] [address] Dr. Ray Fabian Urobilinogen Qn (U) 0.2 {Praveena'U}/dL Normal 0.2 - 1.0 [facility] Comment on above: Performed By: #### U AMIC #### [facility] [address] [place] [address] Dr. Ray Fabian WBC NONE SEEN Normal NONE SEEN [facility] Comment on above: Performed By: #### U AMIC #### [facility] [address] [place] [address] Dr. Ray Fabian CULTURE URINEon 2021 CULTURE URINE Isolate 1 Pseudomonas aeruginosa 30,000 cfu/mL of ORGANISM 1 Pseudomonas aeruginosa ANTIBIOTIC M.I.C RX STATUS Ceftazidime 4 S F Imipenem 1 S F Amikacin 4 S F Gentamicin <=1 S F Tobramycin <=1 S F Ciprofloxacin <=0.25 S F Levofloxacin 0.25 S F Normal [facility] Comment on above: Performed By: #### C BC #### [facility] [address] [place] [address] Dr. Ray Fabian UA RANDOM W/MICROSCOPICon BACTERIA SMALL Abnormal NONE SEEN [facility] Comment on above: Performed By: #### U AMIC #### [facility] [address] [place] [address] Dr. Ray Fabian Bilirubin Ql (U) Negative Normal NEGATIVE [facility] Comment on above: Performed By: #### U AMIC #### [facility] [address] [place] [address] Dr. Ray Fabian CAST NONE SEEN Normal NONE SEEN [facility] Comment on above: Performed By: #### U AMIC #### [facility] [address] [place] [address] Dr. Ray Fabian Clarity (U) CLOUDY Abnormal CLEAR [facility] Comment on above: Performed By: #### U AMIC #### [facility] [address] [address] [address] Ray Fabian Color (U) BROWN Abnormal YELLOW [facility] Comment on above: Performed By: #### U AMIC #### [facility] [address] [address] [address] Ray Fabian Crystals LM Nom (Urine sed) NONE SEEN Normal NONE SEEN [facility] Comment on above: Performed By: #### U AMIC #### [facility] [address] [address] [address] Ray Fabian Epithelial cells LM Ql (Urine sed) FEW Abnormal NONE SEEN /RARE [facility] Comment on above: Performed By: #### U AMIC #### [facility] [address] [address] [address] Ray Fabian Glucose Ql (U) Negative Normal NEGATIVE [facility] Comment on above: Performed By: #### U AMIC #### [facility] [address] [address] [address] Ray Fabian Hemoglobin Ql (U) LARGE Abnormal NEGATIVE [facility] Comment on above: Performed By: #### U AMIC #### [facility] [address] [address] [address] Ray Fabian Ketones Ql (U) TRACE Abnormal NEGATIVE [facility] Comment on above: Performed By: #### U AMIC #### [facility] [address] [address] [address] Ray Fabian LEUKOCYTES TRACE Abnormal NEGATIVE [facility] Comment on above: Performed By: #### U AMIC #### [facility] [address] [address] [address] Ray Fabian MUCOUS SMALL Abnormal NONE SEEN [facility] Comment on above: Performed By: #### U AMIC #### [facility] [address] [address] [address] Ray Fabian Nitrite Ql (U) Negative Normal NEGATIVE [facility] Comment on above: Performed By: #### U AMIC #### [facility] [address] [address] [address] Ray Fabian pH (U) 5.0 [pH] Normal 5-9 [facility] Comment on above: Performed By: #### U AMIC #### [facility] [address] [place] [address] Dr. Ray Fabian RBC (U) [#/Vol] /uL Abnormal 0-2 [facility] Comment on above: Performed By: #### U AMIC #### [facility] [address] [address] [address] Ray Fabian SPEC GRAVITY >=1.030 Abnormal 1.005-<=1.025 [facility] Comment on above: Performed By: #### U AMIC #### [facility] [address] [place] [address] Dr. Ray Fabian UA PROTEIN 100 mg/dl Abnormal NEGATIVE/ TRACE [facility] Comment on above: Performed By: #### U AMIC #### [facility] [address] [place] [address] Dr. Ray Fabian Urobilinogen Qn (U) 1.0 {Praveena'U}/dL Normal 0.2 - 1.0 [facility] Comment on above: Performed By: #### U AMIC #### [facility] [address] [place] [address] Dr. Ray Fabian WBC 2-5 Abnormal NONE SEEN [facility] Comment on above: Performed By: #### U AMIC #### [facility] [address] [place] [address] Dr. Ray Fabian FREE T3on 06-26-2021 FREE T3 2.31 pg/mlL Critically low 2.77-5.27 [facility] Comment on above: Performed By: #### T SH, FT3 #### [facility] [address] [place] [address] Dr. Ray Fabian FREE T4on 06-26-2021 Free T4 [Mass/Vol] 0.88 ng/dL Normal 0.78-2.19 [facility] Comment on above: Performed By: #### F T4 #### [facility] [address] [place] [address] Dr. Ray Fabian TSHon 06-26-2021 TSH 3.608 uIU/mL Normal 0.470-4.680 [facility] Comment on above: Performed By: #### T SH, FT3 #### [facility] [address] [place], [place] [address] Dr. Ray Fabian TSH RANGE SEE BELOW Normal [facility] Comment on above: Result Comment: <0.3 4 UIU/ml HYPERTHYROID 0.34-5.60 UIU/ml EUTHYROID >5.60 UIU/ml HYPOTHYROID Performed By: #### T SH, FT3 #### [facility] [address] [place], [place] [address] Dr. Ray Fabian Gynecology Office/Clinic Not jennifer 02-04-2018 Gynecology Office/Clinic Note Chief Complaint USN follow up History of Present Illness Age of Menopause: 50 years Pelvic pain: No Spotting: No Additional HPI details: 67 y/o, , . USN follow up Right adnexal fullness noticed on exam. She denies pelvic pain or vaginal bleeding. Colonoscopy 12/04/15. Reason For Exam Right adnexal fullness;Other (please specify) Report EXAM(S) PREFORMED: Transvaginal ultrasound INDICATIONS: Right adnexal fullness LMP: Post-menopause UTERUS: 5.1 x 3.6 x 2.6 cm ENDOMETRIAL THICKNESS: 4 mm LEFT OVARY: 1.3 x 1.2 x 0.9 cm LT FOLLICLE: RIGHT OVARY: 1.5 x 1.1 x 1.0 cm RT FOLLICLE: COMMENTS: IMPRESSION: Anteverted, atrophic, heterogeneous uterus consistent with patient's postmenopausal status. Endometrial lining is appropriate thickness for postmenopausal, measuring 4 mm, and is somewhat ill-defined. No obvious endometrial or uterine mass is visualized. Significant amount of peristalsing bowel is seen in both the right and left adnexa, making it difficult to visualize the ovaries. Bilateral ovaries were sub-visualized appearing atrophic, normal for postmenopausal patient. No obvious ovarian cyst or mass seen. No pelvic free fluid is seen. Transabdominal scan was attempted to better visualize the pelvic organs, however the large amount of bowel present in the pelvis obscured anything being visualized abdominally. Signature Line Preliminary Transcribed by: LNUSSBAUM Transcribed DT/TM: 02/04/2018 10:56 am REPORT This document has an image Result type: US Transvaginal Result date: February 04, 2018 10:22 EST Result status: Transcribed Result title: USTV US Transvaginal Performed by: Jacque Smith on February 04, 2018 10:22 EST Encounter info: [id number], [facility], 02/04/2018 - [1] Colonoscopy 12/04/2015. [2] Review of Systems Cardio Respiratory Heart Irregularity: No Shortness of Breath: No Gastrointestinal Abdominal Pain: No Bloating: No Change in bowel habits: No Reflux/heartburn: No Urinary Nocturia: No Painful urination: No Urgency: No Urinary frequency: No Urinary Incontinence: No Physical Exam Vitals & Measurements BP: 122/72 HT: 160.5 cm WT: 55.6 kg BMI: 21.58 General: awake, alert, NAD Additional Vitals No qualifying data available. Assessment/Plan 1. Adnexal fullness Ordered: No Charge Physician Comments Reviewed ultrasound findings. No additional follow up needed. Problem List/Past Medical History Ongoing No qualifying data Historical Hypothyroidism Procedure/Surgical History right ankle (2008), d&c, hernia repair, tubal ligation. Medications glucosamine, Oral Melatonin, HS (at bedtime) multivitamin, Daily Vitamin D3 1000 intl units oral capsule, 1000 International_unit, 1 caps, Oral, Daily Allergies No Known Allergies Social History Alcohol Current Nutrition/Health Caffeine intake amount: occas. Sexual Sexually active: Yes. Substance Abuse Denies All Tobacco Never (less than 100 in lifetime) Use:. Family History Alcoholism: Father. Breast cancer: Grandmother (P). Cardiac disorder: Father. Hypertension 20-JAN-2016 18:09:58<$>: Father. Lung cancer: Sibling. Thyroid disease: Mother.[1] USTV US Transvaginal; Jacque Smith 02/04/2018 10:22 EST[2] Annual; Mckenzie Garcia PA-C 01/29/2018 10:39 ESTElectronically signed by M Mckenzie aquino PA-C [place] 02/04/18 11:50 EST Normal [facility] US Transvaginalon 02-04-2018 US Transvaginal EXAM(S) PREFORMED:Transvaginal ultrasoundINDICATIONS:Righ t adnexal fullnessLMP: Post-menopauseUTERUS: 5.1 x 3.6 x 2.6 cmENDOMETRIAL THICKNESS: 4 mmLEFT OVARY: 1.3 x 1.2 x 0.9 cmLT FOLLICLE:RIGHT OVARY: 1.5 x 1.1 x 1.0 cmRT FOLLICLE:COMMENTS:IMPRESSI ON:Anteverted, atrophic, heterogeneous uterus consistent with patient's postmenopausal status. Endometrial lining is appropriate thickness for postmenopausal, measuring 4 mm, and is somewhat ill-defined. No obvious endometrial or uterine mass is visualized.Significant amount of peristalsing bowel is seen in both the right and left adnexa, making it difficult to visualize the ovaries.Bilateral ovaries were sub-visualized appearing atrophic, normal for postmenopausal patient. No obvious ovarian cyst or mass seen.No pelvic free fluid is seen.Transabdominal scan was attempted to better visualize the pelvic organs, however the large amount of bowel present in the pelvis obscured anything being visualized abdominally. Final Signed by: Elisha Josue DO (Electronic Signature): 02/04/2018 1:31 pmTranscribed by: LNUSSBAUMTranscribed DT/TM: 02/04/2018 10:56(If Report Is Signed, Electronically Signed in Other Vendor System) Normal [facility] Ambulatory Patient Education on 01-31-2018 Ambulatory Patient Education Patient Education MaterialsName: Maria Douglass Current Date: 01/31/2018 10:55:40 [place] 1950 following sheet(s) are the Patient Education Leaflets [facility]: Breast Self-AwarenessWhat is breast self-awareness?Breast self-awareness is knowing how your breasts normally look and feel. Your breasts change as you go through different stages of your life. So it's important to learn what is normal for your breasts. Breast self-awareness helps you notice any changes in your breasts right away. Report any changes to your healthcare provider.Why is breast self-awareness important?Many experts now say that women should focus on breast self-awareness instead of doing a breast self-examination (BSE). These experts include the [place] [employer], the U.S. Preventive Services Task Force, and the [place] [employer] of Obstetricians and Gynecologists. Some experts even advise not teaching women to do a BSE. That's because research hasn't shown a clear benefit to doing BSEs.Breast self-awareness is different than a BSE. Breast self-awareness isn't about following a certain method and schedule. It's about knowing what's normal for your breasts. That way you can notice even small changes right away. If you see any changes, report them to your healthcare provider.Changes to look forCall your healthcare provider if you find any changes in your breasts that concern you. These changes may include:? A lump? Nipple discharge other than breastmilk, especially a bloody discharge? Swelling? A change in size or shape? Skin irritation, such as redness, thickening, or dimpling of the skin? Swollen lymph nodes in the armpit? Nipple problems, such as pain or rednessIf you find a lumpContact your provider if you find lumpiness in one breast, feel something different in the tissue, or feel a definite lump. Sometimes lumpiness may be due to menstrual changes. But there may be reason for concern.Your provider may want to see you right away if you have:? Nipple discharge that is bloody? Skin changes on your breast, such as dimpling or puckeringIt's normal to be upset if you find a lump. But it's important to contact your provider right away. Remember that most breast lumps are benign. This means they are not cancer.? [id number] [employer]. [address] [place] [address], [place] [address]. All rights reserved. This information is not intended as a substitute for professional medical care. Always follow your healthcare professional's instructions. Normal [facility] Obstetrics Office/Clinic Not jennifer 01-29-2018 Obstetrics Office/Clinic Note Chief Complaint AnnualHistory of Present Illness Age of Menopause: 50 years Abnormal vaginal discharge: No Breast lumps/pain: No Hot flashes: No Night sweats: No Painful sex: No Pelvic pain: No Spotting: No Vaginal dryness: No Vaginal itch/burning/odor: No Additional HPI details: 67y/o . Last pap 12/16/13-Nl;HPV-Neg. She denies any pelvic pain or vaginal bleeding. They got a new dog that is keeping her walking regularly. Her retired this summer. She stays active with her grandchildren (1st grade to college) Mammogram 04/09/[address] [facility]-Benign. Bone Density 11/28/2016@ [facility]-Normal. She is taking vitamin D 1000IU daily and gets calcium through her diet. Colonoscopy 12/04/2015. PCP Dr. Sin in [place] does yearly check and does routine labs.Review of Systems Head Headaches: No Migraines: No Cardio Respiratory Heart Irregularity: No Shortness of Breath: No Endocrine Abnormal weight gain: No Abnormal weight loss: No Fatigue: No ENT Congestion: No Nasal drainage: No Sore throat: No Vertigo: No Eyes Corrective lenses: Yes Gastrointestinal Abdominal Pain: No Bloating: No Change in bowel habits: No Reflux/heartburn: No Hematologic/Lymphatic Bleeding tendencies: No Bruising: No Thromboembolism: No Integumentary Acne: No Hair changes: No Lesions: No Moles: No Musculoskeletal Back pain: No Joint pain: Yes Muscle aches: No Psycho Social Anxiety: No Depression: No Homicidal Ideation: No Sleep Problems: No Suicidal Ideation: No Urinary Nocturia: Yes Painful urination: No Urgency: No Urinary frequency: No Urinary Incontinence: NoPhysical Exam Vitals & Measurements BP: 112/70 HT: 160 cm WT: 55.6 kg BMI: 21.72 General: Alert and oriented, no acute distress. Eye: PERRL, EOMI, normal conjunctiva. HEENT: Normocephalic, normal hearing, no scleral icterus. Neck: Supple, non-tender, no thyromegaly. Lungs: Clear to auscultation, non-labored respiration. Heart: Normal rate, regular rhythm, no murmur, gallop or edema. Abdomen: Soft, non-tender, non-distended, no masses. Musculoskeletal: Normal range of motion and strength, no tenderness or swelling. Skin: Skin is warm, dry and pink, no rashes or lesions. Neurologic: Awake, alert, and no acute distress. Psychiatric: Cooperative, appropriate mood and affect. Breast exam: no masses, no tenderness, no skin changes or nipple discharge. External Genitalia: normal urethral meatus, no lesions, vulvar skin intact. Genitourinary:atrophic vaginal mucosa, no lesions or abnormal discharge, cervix intact without lesions or bleeding. No cystocele or rectocele. Bimanual exam: Normal sized, non-tender, mobile uterus. Right adnexal fullness. Additional Vitals No qualifying data available.Assessment/Plan 1. Abnormal gynecological examination Ordered: Cancer Screening Pelvis Breast Exam G0101 2. Adnexal fullness, Unspecified condition associated with female genital organs and menstrual cycle Ordered: US TransvaginalPhysician Comments 1. Recommend monthly self breast exam and call with any changes. 2. Recommend yearly mammogram. 3. Recommend colonoscopy to screen for colon cancer. 4. Bone density done 2017 normal. 5. Recommend vitamin D 1000-2000IU daily. 6. Recommend calcium either through diet, 3 servings of dairy daily, or if not able to get through diet then recommend supplement 1200mg daily in divided doses. 7. Recommend healthy diet. 8. Recommend exercise 30 min 5 days weekly. 9. Recommend pelvic ultrasound due to right adnexal fullness. f/u with me after ultrasound.Problem List/Past Medical History Ongoing No qualifying data Historical HypothyroidismProcedure/Haskins rgical History right ankle (2008), d&c, hernia repair, tubal ligation.Medications glucosamine, Oral Melatonin, HS (at bedtime) multivitamin, Daily Vitamin D3 1000 intl units oral capsule, 1000 International_unit, 1 caps, Oral, DailyAllergies No Known AllergiesSocial History Alcohol Current Nutrition/Health Caffeine intake amount: occas. Sexual Sexually active: Yes. Substance Abuse Denies All Tobacco Never (less than 100 in lifetime) Use:.Family History Alcoholism: Father. Breast cancer: Grandmother (P). Cardiac disorder: Father. Hypertension 20-JAN-2016 18:09:58<$>: Father. Lung cancer: Sibling. Thyroid disease: Mother.Electronically signed by M arcum PA-CMckenzie 01/29/18 10:41 EST Normal [facility] Ambulatory Patient Education on 01-27-2018 Ambulatory Patient Education Patient Education MaterialsName: Maria Douglass Current Date: 01/27/2018 11:40:45 [place] 1950 following sheet(s) are the Patient [facility] Leaflets [facility]: Breast Self-AwarenessWhat is breast self-awareness?Breast self-awareness is knowing how your breasts normally look and feel. Your breasts change as you go through different stages of your life. So it's important to learn what is normal for your breasts. Breast self-awareness helps you notice any changes in your breasts right away. Report any changes to your healthcare provider.Why is breast self-awareness important?Many experts now say that women should focus on breast self-awareness instead of doing a breast self-examination (BSE). These experts include the [place] [employer], the U.S. Preventive Services Task Force, and the [place] [employer] of Obstetricians and Gynecologists. Some experts even advise not teaching women to do a BSE. That's because research hasn't shown a clear benefit to doing BSEs.Breast self-awareness is different than a BSE. Breast self-awareness isn't about following a certain method and schedule. It's about knowing what's normal for your breasts. That way you can notice even small changes right away. If you see any changes, report them to your healthcare provider.Changes to look forCall your healthcare provider if you find any changes in your breasts that concern you. These changes may include:? A lump? Nipple discharge other than breastmilk, especially a bloody discharge? Swelling? A change in size or shape? Skin irritation, such as redness, thickening, or dimpling of the skin? Swollen lymph nodes in the armpit? Nipple problems, such as pain or rednessIf you find a lumpContact your provider if you find lumpiness in one breast, feel something different in the tissue, or feel a definite lump. Sometimes lumpiness may be due to menstrual changes. But there may be reason for concern.Your provider may want to see you right away if you have:? Nipple discharge that is bloody? Skin changes on your breast, such as dimpling or puckeringIt's normal to be upset if you find a lump. But it's important to contact your provider right away. Remember that most breast lumps are benign. This means they are not cancer.? [id number] [employer]. [address] [place] [address]. All rights reserved. This information is not intended as a substitute for professional medical care. Always follow your healthcare professional's instructions. [facility] Encounters Encounter Date Encounter Type Care Provider Facility Start: 03-26-2022 End: 03-27-[address] MARY WILSON Facility:[facility] Start: 01-08-2022 End: 01-09-2022 ambulatory SRIRAM ALICEA Facility:[facility] Start: 12-08-2021 End: 12-09-2021 ambulatory SRIRAM ALICEA Facility:[facility] Start: 11-30-2021 End: 12-01-2021 ambulatory SRIRAM ALICEA Facility:[facility] Start: 11-20-2021 End: 11-21-2021 ambulatory SRIRAM ALICEA Facility:[facility] Start: 09-26-2021 End: 09-26-[address] THELMA SIN Facility:[facility] Start: 09-01-2021 End: 09-02-2021 ambulatory SRIRAM ALICEA Facility:[facility] Start: 08-22-2021 End: 08-23-2021 ambulatory SRIRAM ALICEA Facility:[facility] Start: 06-26-2021 End: 06-27-2021 ambulatory KRISTYN WATSON Facility:[facility] Start: 02-04-2018 End: 02-05-2018 Patient encounter procedure MCKENZIE GARCIA Facility:[facility] Start: 02-04-2018 End: 02-05-2018 Patient encounter procedure [facility]OSUE [facility] Start: 01-29-2018 End: 01-30-2018 Patient encounter procedure MCKENZIE GARCIA Facility[facility] Payers Date Payer Category Payer Private Health Insurance 1959 Medicare [id number] 1959 Medicare [id number] 1950 Unknown [id number] 2.16.8 [id number] 1950 Unknown [id number] 2.16.8 [id number] 1950 Unknown [id number] 2.16.8 [id number] 1950 Unknown [id number] 2.16.84 0.1.461776.3.579.2.593 1950 Unknown [id number] 2.16.84 0.1.780385.3.579.2.593 1950 Unknown [id number] 2.16.84 0.1.634892.3.579.2.593 1950 Unknown [id number] 2.16.84 0.1.438500.3.579.2.593 1950 Unknown [id number] 2.16.84 0.1.495242.3.579.2.593 1950 Unknown [id number] 2.16.84 0.1.412544.3.579.2.593 1950 Unknown [id number] 2.16.84 0.1.644289.3.579.2.593 1950 Unknown [id number] 2.16.84 [id number] 1950 Unknown [id number] 2.16.84 [id number] Summary Purpose Family History No Family History Records FoundNo Family History Records Found Advance Directives No Advanced Directives Records FoundNo Advanced Directives Records Found Additional Source Comments INFORMATION SOURCE (unrecogn ized section and content) DATE CREATED AUTHOR 03/02/2018 [facility] DATE CREATED AUTHOR AUTHORSherita GLEASON 03/26/2022 [facility] [place] FOR RECORDS PERTAINING TO PATIENTS WHO ARE OR HAVE BEEN ENROLLED IN A CHEMICAL DEPENDENCY/SUBSTANCEABUSE PROGRAM, SOME INFORMATION MAY BE OMITTED. This clinical summary was aggregated from multiple sources. Caution should be exercised in using it in the provision of clinical care. This summary normalizes information from multiple sources, and as a consequence, information in this document may materially change the coding, format and clinical context of patient data. In addition, data may be omitted in some cases. CLINICAL DECISIONS SHOULD BE BASED ON THE PRIMARY CLINICAL RECORDS. [facility] [facility]. provides no warranty or guarantee of the accuracy or completeness of information in this document.
[2023-12-18 11:17] LABS: Basophils Percent Auto 0.3 % (0.2-2.0); Eosinophils Absolute Auto 0.1 10^3/uL (0.0-0.7); Eosinophils Percent Auto 2.3 % (0.9-7.0); Hemoglobin 12.2 g/dL (12.0-16.0); Immature Granulocytes Abs Auto 0.01 10^3/uL (0.00-0.03); Immature Granulocytes Pct Auto 0.3 % (0.0-0.5); Lymphocytes Absolute Auto 0.8 10^3/uL (1.2-3.8); Lymphocytes Percent Auto 26.2 % (20.5-60.0); Mean Corpuscular Hemoglobin 31.6 pg (26.7-34.0); Mean Corpuscular Volume 95.9 fL (81.0-99.0); Mean Platelet Volume 9.8 fL (9.5-13.5); Monocytes Absolute Auto 0.3 10^3/uL (0.3-0.8); Monocytes Percent Auto 8.9 % (1.7-12.0); Neutrophils Absolute Auto 1.9 10^3/uL (1.4-6.5); Platelet Count 207 10^3/uL (150-450); Red Blood Count 3.86 10^6/uL (4.20-5.40); Red Cell Distribution Width 13.4 % (11.0-15.0); White Blood Count 3.1 10^3/uL (4.0-11.0)
[2023-12-18 11:31] LABS: Estimated Average Glucose 105 mg/dL; Glycohemoglobin A1C 5.3 % (4.5-6.2)
[2023-12-18 12:21] LABS: Alanine Aminotransferase 21 U/L (14-59); Albumin Globulin Ratio 1.5; Albumin Level 4.1 g/dL (3.4-5.0); Alkaline Phosphatase 51 U/L (46-116); Anion Gap 8.4; Aspartate Amino Transferase 21 U/L (15-37); BUN Creatinine Ratio 30.4; Bilirubin Total 0.5 mg/dL (0.2-1.0); Calcium 9.4 mg/dL (8.5-10.1); Carbon Dioxide 31.6 mmol/L (21.0-32.0); Chloride 104 mmol/L (98-107); Chol HDL Ratio 2.1; Cholesterol 194 mg/dL (<=200); Estimated GFR (African America >60 (>=60); Estimated GFR (Non-African Ame >60 (>=60); Free T3 2.09 pg/mL (2.18-3.98); Globulin 2.8 g/dL; Glucose 94 mg/dL (74-106); HDL Cholesterol 94 mg/dL (40-60); Sodium 140 mmol/L (136-145); Total Protein 6.9 g/dL (6.4-8.2); Triglycerides 40 mg/dL (<=150)
== END 2023-12-18 10:50 | disposition home or self-care (01) ==
PROVIDERS: PCP Nurse Practitioner Family; Visit Provider Nurse Practitioner Family
DX: E78.5 Hyperlipidemia, unspecified (principal); R73.09 Other abnormal glucose; E03.9 Hypothyroidism, unspecified; E55.9 Vitamin D deficiency, unspecified; I10 Essential (primary) hypertension
CPT/HCPCS: 36415; 80053; 80061; 82306; 83036; 83525; 84436; 84443; 84481; 85025

== ENCOUNTER 2023-12-27 08:56 | Outpatient (OUT) | payer MEDICARE, SELFPAY ==
--- NOTE | 2023-12-27 09:02 | XR_ITS ---
[address] [address] Patient Name: DAVID DOUGLASS MRN: [id number] date: 1950 Sex: F Assigned Patient Location: [facility] Current Patient Location: [facility] Accession/Order Number: [id number] Exam Date: 12/27/2023 09:10 Report Date: 12/27/2023 10:12 At the request of: SRIRAM ALICEA Procedure: XR DEXA axial skeleton EXAMINATION: XR DEXA axial skeleton HISTORY: Screening For Osteoporosis COMPARISON: DEXA bone densitometry 11/30/2021 TECHNIQUE: Dual-energy X-ray absorptiometry (DXA) was performed. FINDINGS: SPINE ANALYSIS: Average bone mineral density is 1.255 g/cm2. T-score (standard deviation relative to young adult mean): 0.6 . +1.2% change since prior study. HIP ANALYSIS: Lowest bone mineral density is within the left femoral neck, 0.930 g/cm2. T-score (standard deviation relative to young adult mean): -0.8 . -3.6% change since prior study. XR/XR DEXA axial skeleton IMPRESSION: World Health Organization Classification: Osteopenia - Moderate Fracture Risk FRAX: Cannot calculate. Pharmacologic treatment recommendations * No uniform recommendation applies to all patients. Management plans must be individualized. * Consider initiating pharmacologic treatment in postmenopausal women and men >= 50 years of age who have the following: Primary fracture prevention: * T-score <= - 2.5 at the femoral neck, total hip, lumbar spine, 33% radius (some uncertainty with existing data) by DXA. * Low bone mass (osteopenia: T-score between - 1.0 and - 2.5) at the femoral neck or total hip by DXA with a 10-year hip fracture risk >= 3% or a 10-year major osteoporosis-related fracture risk >= 20% (i.e., clinical vertebral, hip, forearm, or proximal humerus) based on the [place]-adapted FRAXregistered model. Secondary fracture prevention: * Fracture of the hip or vertebra regardless of BMD [4, 5]. * Fracture of proximal humerus, pelvis, or distal forearm in persons with low bone mass (osteopenia: T-score between - 1.0 and - 2.5). The decision to treat should be individualized in persons with a fracture of the proximal humerus, pelvis, or distal forearm who do not have osteopenia or low BMD [12, 13]. Deidra MS, Wilfredo SL, Janki KL, David EM, Kevon KG, AJ, Nba ES. The clinician's guide to prevention and treatment of osteoporosis. Osteoporos Int. 2021;33(10):3792-0970. doi: 10.1007/t06570-525-91905-t. Epub 2021Jul 20. Erratum in: Osteoporos Int. 2021Oct 19;: PMID: [id number]; PMCID: [id number]. Electronically authenticated by: JAIRO ALVAREZ Date: 12/27/2023 10:12
== END 2023-12-27 08:57 | disposition home or self-care (01) ==
LOC: RAD 08:56
PROVIDERS: PCP Nurse Practitioner Family; Visit Provider Nurse Practitioner Family
DX: M85.88 Other specified disorders of bone density and structure, other site (principal); Z13.820 Encounter for screening for osteoporosis
CPT/HCPCS: 77080

== ENCOUNTER 2024-01-17 09:19 | Outpatient (OUT) | payer MEDICARE, SELFPAY ==
--- OUTSIDE RECORDS SUMMARY | 2024-01-17 09:24 | XMS_ITS | CCD ---
Author Organization [facility] Care Team Providers Care Staff Climate Scientist Name Role Phone MCKENZIE GARCIA Unavailable Unavailable ELISHA JOSUE Unavailable Unavailable MCKENZIE GARCIA Unavailable Unavailable KRISTYN WATSON Attending Unavailable KRISTYN WATSON Consulting Unavailable SHIRLEY AHMAD Admitting Unavailable DEANNE, SUSY Primary Care Unavailable STEVE, DR MARY Ren Consulting Unavailable DEANNE, SUSY Attending Unavailable DEANNE, SUSY Primary Care Unavailable DEANNE, SUSY Admitting Unavailable DEANNE, SUSY Consulting Unavailable DEANNE, SUSY Primary Care Unavailable DR THELMA SIN Consulting Unavailable SERGIO, DR RENEE Admitting Unavailable DR THELMA SIN Attending Unavailable DEANNE, SUSY Primary Care Unavailable DEANNE, SUSY Attending Unavailable DEANNE, SUSY Admitting Unavailable DEANNE, SUSY Consulting Unavailable DEANNE, SUSY Primary Care Unavailable DR JAIRO ALVAREZ Consulting Unavailable DEANNE, SUSY Attending Unavailable DEANNE, SUSY Admitting Unavailable DEANNE, SUSY Consulting Unavailable DEANNE, SUSY Primary Care Unavailable DEANNE, SUSY Consulting Unavailable DEANNE, SUSY Attending Unavailable DEANNE, SUSY Admitting Unavailable DR THELMA SIN Consulting Unavailable DR THELMA SIN Admitting Unavailable DR THELMA SIN Attending Unavailable DEANNE, SUSY Primary Care Unavailable DEANNE, SUSY Attending Unavailable DEANNE, SUSY Admitting Unavailable DEANNE, SUSY Consulting Unavailable DEANNE, SUSY Primary Care Unavailable DEANNE, SUSY Admitting Unavailable DEANNE, SUSY Attending Unavailable DEANNE, SUSY Consulting Unavailable DEANNE, SUSY Primary Care Unavailable YANELI GRAVES Attending Unavailable NANDO BANKS Referring Unavailab evan ALICEA, SUSY S Primary Care Unavailable Susy Alicea CNP S Primary Care Provider Medications Current Medications Medication Drug Class(es) Dates Sig (Normalized) Sig (Original) cycloSPORINE 0.5 mg/ml ophthalmic suspension (1 source) Calcineurin Inhibitor Immunosuppressant Start: 09-14-2023 cycloSPORINE 0.05 % drop 09/14/2023 Active ofloxacin 3 mg/ml ophthalmic solution (1 source) Quinolone Antimicrobial Start: 01-07-2024 End: 04-06-2024 take 1 drop(s) into the eye(s) four times daily, then take 1 drop(s) into the eye(s) four times daily ofloxacin (OCUFLOX) 0.3 % ophthalmic solution 1 Drop four times daily. One drop in the OPERATIVE EYE only four times a day starting the day before surgery 10 mL 1 01/07/2024 04/06/2024 Active Problems Active Problems Problem Classification Problem Date Documented Date Episodic/Chronic Blindness and vision defects (2 sources) Does use contact lenses; Translations: [Presence of spectacles and contact lenses] Onset: 4 01-07-2024 Episodic Cataract (6 sources) Combined forms of age-related cataract, right eye; Translations: [Combined forms of age-related cataract, left eye] Onset: 4 01-06-2024 Chronic Deficiency and other anemia (5 sources) Anemia, unspecified; Translations: [ANEMIA UNSPECIFIED] Onset: 2 Episodic Diseases of white blood cells (4 sources) Decreased white blood cell count, unspecified; Translations: [DECREASED WBC COUNT UNSPECIFIED] Onset: 2 Chronic Disorders of lipid metabolism (1 source) Hyperlipidemia, unspecified; Translations: [HYPERLIPIDEMIA UNSPECIFIED] Onset: 2 Chronic Inflammation; infection of eye (except that caused by tuberculosis or sexually transmitteddisease) (2 sources) Keratoconjunctivitis sicca; Translations: [Keratoconjunctivitis sicca, not specified as Sjogren's, bilateral] Onset: 4 01-07-2024 Chronic Menopausal disorders (1 source) Other primary ovarian failure; Translations: [OTHER PRIMARY OVARIAN FAILURE] Onset: 2 Chronic Other eye disorders (2 sources) Bilateral posterior vitreous detachment; Translations: [Vitreous degeneration, bilateral] Onset: 4 01-07-2024 Chronic Thyroid disorders (8 sources) Hypothyroidism, unspecified; 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 LOCATION: [facility] BREAST COMPOSITION: Scattered areas fibroglandular density. FINDINGS: [...] MD on 03/26/2022 at 11:[address] [facility] CBC AUTO DIFFon 01-08-2022 BASO # 0.0 103/ul Normal 0.0-0.1 [facility] Comment on above: Performed By: #### C BC #### [facility] [address] [place] [address] Dr. Ray Fabian Basophils/100 WBC (Bld) 0.5 % Normal 0.2-2.0 [facility] Comment on above: Performed By: #### C BC #### [facility] [address] [place] [address] Dr. Ray Fabian EO # 0.1 103/ul Normal 0.0-0.7 [facility] Comment on above: Performed By: #### C BC #### [facility] [address] [place] [address] Dr. Ray Fabian Eosinophils/100 WBC (Bld) 3.0 % Normal 0.9-7.0 [facility] Comment on above: Performed By: #### C BC #### [facility] [address] [place] [address] Dr. Ray Fabian Erythrocyte distribution width (RBC) [Ratio] 14.0 % Normal 11.0-15.0 [facility] Comment on above: Performed By: #### C BC #### [facility] [address] [place] [address] Dr. Ray Fabian Hematocrit (Bld) [Volume fraction] 37.6 % Normal 36.0-48.0 [facility] Comment on above: Performed By: #### C BC #### [facility] [address] [place] [address] Dr. Ray Fabian Hemoglobin (Bld) [Mass/Vol] 12.1 g/dL Normal 12.0-16.0 [facility] Comment on above: Performed By: #### C BC #### [facility] [address] [place] [address] Dr. Ray Fabian IG # 0.01 10e3/ul Normal 0.00-0.03 [facility] Comment on above: Performed By: #### C BC #### [facility] [address] [place] [address] Dr. Ray Fabian IG % 0.3 % Normal 0.0-0.5 [facility] Comment on above: Performed By: #### C BC #### [facility] [address] [place] [address] Dr. Ray Fabian LYMPH # 1.3 103/ul Normal 1.2-3.8 [facility] Comment on above: Performed By: #### C BC #### [facility] [address] [place] [address] Dr. Ray Fabian Lymphocytes/100 WBC (Bld) 32.9 % Normal 20.5-60.0 [facility] Comment on above: Performed By: #### C BC #### [facility] [address] [place] [address] Dr. Ray Fabian MANUAL DIFF REQ NO Normal [place] Comment on above: Performed By: #### C BC #### [facility] [address] [place] [address] Dr. Ray Fabian MCH (RBC) [Entitic mass] 30.3 pg Normal 26.7-34.0 [facility] Comment on above: Performed By: #### C BC #### [facility] [address] [place] [address] Dr. Ray Fabian MCHC (RBC) [Mass/Vol] 32.2 g/dL Normal 29.9-35.2 [facility] Comment on above: Performed By: #### C BC #### [facility] [address] [place] [address] Dr. Ray Fabian MCV (RBC) [Entitic vol] 94.2 fL Normal 81.0-99.0 [facility] Comment on above: Performed By: #### C BC #### [facility] [address] [place] [address] Dr. Ray Fabian MONO # 0.4 103/ul Normal 0.3-0.8 [facility] Comment on above: Performed By: #### C BC #### [facility] [address] [place] [address] Dr. Ray Fabian Monocytes/100 WBC (Bld) 9.8 % Normal 1.7-12.0 [facility] Comment on above: Performed By: #### C BC #### [facility] [address] [place] [address] Dr. Ray Fabian NEUT # 2.1 103/ul Normal 1.4-6.5 [facility] Comment on above: Performed By: #### C BC #### [facility] [address] [place] [address] Dr. Ray Fabian Neutrophils/100 WBC (Bld) 53.5 % Normal 43.0-75.0 [facility] Comment on above: Performed By: #### C BC #### [facility] [address] [place] [address] Dr. Ray Fabian Platelet mean volume (Bld) [Entitic vol] 9.7 fL Normal 9.5-13.5 [facility] Comment on above: Performed By: #### C BC #### [facility] [address] [place] [address] Dr. Ray Fabian PLT 205 103/ul Normal 150-[address] [facility] Comment on above: Performed By: #### C BC #### [facility] [address] [place] [address] Dr. Ray Fabian RBC 3.99 106/ul Critically low 4.20-5.40 [place] Comment on above: Performed By: #### C BC #### [facility] [address] [place] [address] Dr. Ray Fabian WBC 4.0 103/ul Normal 4.0-11.[address] [facility] Comment on above: Performed By: #### C BC #### [facility] [address] [place] [address] Dr. Ray Fabian CBC AUTO DIFFon 12-08-2021 BASO # 0.0 103/ul Normal 0.0-0.1 [facility] Comment on above: Performed By: #### C BC #### [facility] [address] [address] [address] Ray Fabian Basophils/100 WBC (Bld) 0.5 % Normal 0.2-2.0 [facility] Comment on above: Performed By: #### C BC #### [facility] [address] [address] [address] Ray Fabian EO # 0.1 103/ul Normal 0.0-0.7 [facility] Comment on above: Performed By: #### C BC #### [facility] [address] [place] [address] Dr. Ray Fabian Eosinophils/100 WBC (Bld) 2.7 % Normal 0.9-7.0 [facility] Comment on above: Performed By: #### C BC #### [facility] [address] [place] [address] Dr. Ray Fabian Erythrocyte distribution width (RBC) [Ratio] 14.9 % Normal 11.0-15.0 [facility] Comment on above: Performed By: #### C BC #### [facility] [address] [place] [address] Dr. Ray Fabian Hematocrit (Bld) [Volume fraction] 35.3 % Critically low 36.0-48.0 [facility] Comment on above: Performed By: #### C BC #### [facility] [address] [place] [address] Dr. Ray Fabian Hemoglobin (Bld) [Mass/Vol] 11.4 g/dL Critically low 12.0-16.0 [facility] Comment on above: Performed By: #### C BC #### [facility] [address] [place] [address] Dr. Ray Fabian IG # 0.00 10e3/ul Normal 0.00-0.03 [facility] Comment on above: Performed By: #### C BC #### [facility] [address] [place] [address] Dr. Ray Fabian IG % 0.0 % Normal 0.0-0.5 [facility] Comment on above: Performed By: #### C BC #### [facility] [address] [address] [address] Ray Fabian LYMPH # 1.0 103/ul Critically low 1.2-3.8 [facility] Comment on above: Performed By: #### C BC #### [facility] [address] [address] [address] Ray Fabian Lymphocytes/100 WBC (Bld) 25.9 % Normal 20.5-60.0 [facility] Comment on above: Performed By: #### C BC #### [facility] [address] [address] [address] Ray Fabian MANUAL DIFF REQ NO Normal [place] Comment on above: Performed By: #### C BC #### [facility] [address] [place] [address] Dr. Ray Fabian MCH (RBC) [Entitic mass] 29.8 pg Normal 26.7-34.0 [facility] Comment on above: Performed By: #### C BC #### [facility] [address] [place] [address] Dr. Ray Fabian MCHC (RBC) [Mass/Vol] 32.3 g/dL Normal 29.9-35.2 [facility] Comment on above: Performed By: #### C BC #### [facility] [address] [place] [address] Dr. Ray Fabian MCV (RBC) [Entitic vol] 92.4 fL Normal 81.0-99.0 [facility] Comment on above: Performed By: #### C BC #### [facility] [address] [place] [address] Dr. Ray Fabian MONO # 0.3 103/ul Normal 0.3-0.8 [facility] Comment on above: Performed By: #### C BC #### [facility] [address] [place] [address] Dr. Ray Fabian Monocytes/100 WBC (Bld) 8.4 % Normal 1.7-12.0 [facility] Comment on above: Performed By: #### C BC #### [facility] [address] [address] [address] Ray Fabian NEUT # 2.3 103/ul Normal 1.4-6.5 [facility] Comment on above: Performed By: #### C BC #### [facility] [address] [address] [address] Ray Fabian Neutrophils/100 WBC (Bld) 62.5 % Normal 43.0-75.0 [facility] Comment on above: Performed By: #### C BC #### [facility] [address] [address] [address] Ray Fabian Platelet mean volume (Bld) [Entitic vol] 9.7 fL Normal 9.5-13.5 [facility] Comment on above: Performed By: #### C BC #### [facility] [address] [place] [address] Dr. Ray Fabian PLT 218 103/ul Normal 150-[address] [facility] Comment on above: Performed By: #### C BC #### [facility] [address] [address] [address] Ray Fabian RBC 3.82 106/ul Critically low 4.20-5.40 [place] Comment on above: Performed By: #### C BC #### [facility] [address] [place] [address] Dr. Ray Fabian WBC 3.7 103/ul Critically low 4.0-11.0 [facility] Comment on above: Performed By: #### C BC #### [facility] [address] [place] [address] Dr. Ray Fabian XR DEXA BONE DENSITYon [...] by: JAIRO ALVAREZ Date: 2021-11-30 11:50 Normal [facility] INSULINon 11-21-2021 Insulin 3.9 uIU/mL Normal 2.6-24.9 [facility] Comment on above: Performed By: #### C BC #### [facility] [address] [place] [address] Dr. Ray Fabian T4, T3U, FTI LABCORPon 11-21 Free Thyroxine Index 1.9 Normal 1.2-4.9 [facility] Comment on above: Performed By: #### C BC #### [facility] [address] [place] [address] Dr. Ray Fabian T3 Uptake 27 % Normal 24-39 [facility] Comment on above: Performed By: #### C BC #### [facility] [address] [place] [address] Dr. Ray Fabian T4 [Mass/Vol] 6.9 ug/dL Normal 4.5-12.0 [facility] Comment on above: Performed By: #### C BC #### [facility] [address] [place] [address] Dr. Ray Fabian CBC AUTO DIFFon 11-20-2021 BASO # 0.0 103/ul Normal 0.0-0.1 [facility] Comment on above: Performed By: #### C BC #### [facility] [address] [place] [address] Dr. Ray Fabian Basophils/100 WBC (Bld) 0.3 % Normal 0.2-2.0 [facility] Comment on above: Performed By: #### C BC #### [facility] [address] [place] [address] Dr. Ray Fabian EO # 0.1 103/ul Normal 0.0-0.7 [facility] Comment on above: Performed By: #### C BC #### [facility] [address] [place] [address] Dr. Ray Fabian Eosinophils/100 WBC (Bld) 2.4 % Normal 0.9-7.0 [facility] Comment on above: Performed By: #### C BC #### [facility] [address] [place] [address] Dr. Ray Fabian Erythrocyte distribution width (RBC) [Ratio] 14.7 % Normal 11.0-15.0 [facility] Comment on above: Performed By: #### C BC #### [facility] [address] [place] [address] Dr. Ray Fabian Hematocrit (Bld) [Volume fraction] 40.0 % Normal 36.0-48.0 [facility] Comment on above: Performed By: #### C BC #### [facility] [address] [place] [address] Dr. Ray Fabian Hemoglobin (Bld) [Mass/Vol] 13.0 g/dL Normal 12.0-16.0 [facility] Comment on above: Performed By: #### C BC #### [facility] [address] [place] [address] Dr. Ray Fabian IG # 0.01 10e3/ul Normal 0.00-0.03 [facility] Comment on above: Performed By: #### C BC #### [facility] [address] [place] [address] Dr. Ray Fabian IG % 0.3 % Normal 0.0-0.[address] [facility] Comment on above: Performed By: #### C BC #### [facility] [address] [place] [address] Dr. Ray Fabian LYMPH # 1.1 103/ul Critically low 1.2-3.8 [facility] Comment on above: Performed By: #### C BC #### [facility] [address] [place] [address] Dr. Ray Fabian Lymphocytes/100 WBC (Bld) 31.8 % Normal 20.5-60.0 [facility] Comment on above: Performed By: #### C BC #### [facility] [address] [place] [address] Dr. Ray Fabian MANUAL DIFF REQ NO Normal [place] Comment on above: Performed By: #### C BC #### [facility] [address] [place] [address] Dr. Ray Fabian MCH (RBC) [Entitic mass] 29.7 pg Normal 26.7-34.0 [facility] Comment on above: Performed By: #### C BC #### [facility] [address] [place] [address] Dr. Ray Fabian MCHC (RBC) [Mass/Vol] 32.5 g/dL Normal 29.9-35.2 [facility] Comment on above: Performed By: #### C BC #### [facility] [address] [place] [address] Dr. Ray Fabian MCV (RBC) [Entitic vol] 91.3 fL Normal 81.0-99.0 [facility] Comment on above: Performed By: #### C BC #### [facility] [address] [place] [address] Dr. Ray Fabian MONO # 0.3 103/ul Normal 0.3-0.8 [facility] Comment on above: Performed By: #### C BC #### [facility] [address] [place] [address] Dr. Ray Fabian Monocytes/100 WBC (Bld) 7.6 % Normal 1.7-12.0 [facility] Comment on above: Performed By: #### C BC #### [facility] [address] [place] [address] Dr. Ray Fabian NEUT # 2.0 103/ul Normal 1.4-6.[address] [facility] Comment on above: Performed By: #### C BC #### [facility] [address] [place] [address] Dr. Ray Fabian Neutrophils/100 WBC (Bld) 57.6 % Normal 43.0-75.[address] [facility] Comment on above: Performed By: #### C BC #### [facility] [address] [address] [address] Ray Fabian Platelet mean volume (Bld) [Entitic vol] 9.6 fL Normal 9.5-13.5 [facility] Comment on above: Performed By: #### C BC #### [facility] [address] [address] [address] Ray Fabian PLT 209 103/ul Normal 150-[address] [facility] Comment on above: Performed By: #### C BC #### [facility] [address] [address] [address] Ray Fabian RBC 4.38 106/ul Normal 4.20-5.40 [facility] Comment on above: Performed By: #### C BC #### [facility] [address] [place] [address] Dr. Ray Fabian WBC 3.4 103/ul Critically low 4.0-11.0 [facility] Comment on above: Performed By: #### C BC #### [facility] [address] [place] [address] Dr. Ray Fabian GLYCOHEMOGLOBIN A1Con 2021 ADA RECOMMENDATION SEE BELOW Normal [facility] Comment on above: Result Comment: ADA RECOMMENDED LIMIT 4.0 - 6.0 ADA THERAPEUTIC TARGET < 7.0 ACTION SUGGESTED > 7.0 Performed By: #### A 1C #### [facility] [address] [place] [address] Dr. Ray Fabian Glucose [Mass/Vol] 120 mg/dL Normal [facility] Comment on above: Performed By: #### A 1C #### [facility] [address] [address] [address] Ray Fabian HbA1c (Bld) [Mass fraction] 5.8 % Normal 4.5-6.2 [facility] Comment on above: Performed By: #### A 1C #### [facility] [address] [place] [address] Dr. Ray Fabian IRONon 11-20-2021 Iron [Mass/Vol] 96.0 ug/dL Normal 50.0-170.0 [place] Comment on above: Performed By: #### I TASHIA #### [facility] [address] [address] [address] Ray Fabian LIPID PROFILEon 11-20-2021 CHOL-HDL RATIO NORM SEE BELOW Normal [facility] Comment on above: Result Comment: 3.3 - 4.4 LOW RISK 4.4 - 7.1 AVERAGE RISK 7.1 - 11.0 MODERATE RISK >11.0 HIGH RISK Performed By: #### C BC #### [facility] [address] [address] [address] Ray Fabian Cholesterol [Mass/Vol] 221 mg/dL Critically high <=200 [facility] Comment on above: Performed By: #### C BC #### [facility] [address] [place] [address] Dr. Ray Fabian Cholesterol in HDL [Mass/Vol] 88 mg/dL Critically high 40-60 [facility] Comment on above: Performed By: #### C BC #### [facility] [address] [place] [address] Dr. Ray Fabian Cholesterol in LDL [Mass/Vol] 116.4 mg/dL Normal [facility] Comment on above: Performed By: #### C BC #### [facility] [address] [place] [address] Dr. Ray Fabian Cholesterol.total/ Cholesterol in HDL [Mass ratio] 2.5 {ratio} Normal [facility] Comment on above: Performed By: #### C BC #### [facility] [address] [place], [place] [id number] Dr. Ray Fabian HDL NORMAL > or = 60 mg/dl - LO W CARDIOVASCULAR RISK <40 mg/dl - HIGH CARDIOVASCULAR RISK Normal [facility] Comment on above: Performed By: #### C BC #### [facility] [address] [place], [place] [id number] Dr. Ray Fabian LDL CALC NORMAL SEE BELOW Normal [facility] Comment on above: Result Comment: <100 mg/dl OPTIMAL 100 - 129 mg/dl NEAR OR ABOVE OPTIMAL 130 - 159 mg/dl BORDERLINE HIGH 160 - 189 mg/dl HIGH >190 mg/dl VERY HIGH Performed By: #### C BC #### [facility] [address] [place] [address] Dr. Ray Fabian Triglyceride [Mass/Vol] 83 mg/dL Normal <=150 [facility] Comment on above: Performed By: #### C BC #### [facility] [address] [place] [address] Dr. Ray Fabian VLDL CALC 16.6 mg/dL Normal [facility] Comment on above: Performed By: #### C BC #### [facility] [address] [place] [address] Dr. Ray Fabian PROF 14(COMP METB)on 022 Albumin [Mass/Vol] 4.3 g/dL Normal 3.4-5.0 [facility] Comment on above: Performed By: #### C BC #### [facility] [address] [place] [address] Dr. Ray Fabian Albumin/Globulin [Mass ratio] 1.4 {ratio} Normal [facility] Comment on above: Performed By: #### C BC #### [facility] [address] [place] [address] Dr. Ray Fabian ALP [Catalytic activity/Vol] 50 U/L Normal 46-116 [facility] Comment on above: Performed By: #### C BC #### [facility] [address] [place] [address] Dr. Ray Fabian ALT [Catalytic activity/Vol] 24 U/L Normal 14-59 [facility] Comment on above: Performed By: #### C BC #### [facility] [address] [place] [address] Dr. Ray Fabian Anion gap [Moles/Vol] 12.0 mmol/L Normal [facility] Comment on above: Performed By: #### C BC #### [facility] [address] [place] [address] Dr. Ray Fabian AST [Catalytic activity/Vol] 20 U/L Normal 15-37 [facility] Comment on above: Performed By: #### C BC #### [facility] [address] [address] [address] Ray Fabian Bilirubin [Mass/Vol] 0.6 mg/dL Normal 0.2-1.0 [facility] Comment on above: Performed By: #### C BC #### [facility] [address] [address] [address] Ray Fabian Calcium [Mass/Vol] 9.3 mg/dL Normal 8.5-10.1 [facility] Comment on above: Performed By: #### C BC #### [facility] [address] [address] [address] Ray Fabian Chloride [Moles/Vol] 103 mmol/L Normal 98-107 [facility] [place] Comment on above: Performed By: #### C BC #### [facility] [address] [place] [address] Dr. Ray Fabian CO2 [Moles/Vol] 30.1 mmol/L Normal 21.0-32.0 [facility] Comment on above: Performed By: #### C BC #### [facility] [address] [place] [address] Dr. Ray Fabian Creatinine [Mass/Vol] 0.76 mg/dL Normal 0.55-1.02 [facility] [place] Comment on above: Performed By: #### C BC #### [facility] [address] [place] [address] Dr. Ray Fabian EGFR-AF GIBRALTARIAN >60 Normal >=60 [facility] Comment on above: Performed By: #### C BC #### [facility] [address] [place] [address] Dr. Ray Fabian EGFR-NON AF GIBRALTARIAN >60 Normal >=60 [facility] [place] Comment on above: Performed By: #### C BC #### [facility] [address] [place] [address] Dr. Ray Fabian Globulin (S) [Mass/Vol] 3.0 g/dL Normal [facility] [place] Comment on above: Performed By: #### C BC #### [facility] [address] [place] [address] Dr. Ray Fabian Glucose [Mass/Vol] 101 mg/dL Normal 74-106 [facility] Comment on above: Performed By: #### C BC #### [facility] [address] [address] [address] Ray Fabian Potassium [Moles/Vol] 4.1 mmol/L Normal 3.5-5.1 [facility] [place] Comment on above: Performed By: #### C BC #### [facility] [address] [address] [address] Ray Fabian Protein [Mass/Vol] 7.3 g/dL Normal 6.4-8.2 [facility] Comment on above: Performed By: #### C BC #### [facility] [address] [place] [address] Dr. Ray Fabian Sodium [Moles/Vol] 141 mmol/L Normal 136-145 [facility] Comment on above: Performed By: #### C BC #### [facility] [address] [address] [address] Ray Fabian Urea nitrogen [Mass/Vol] 16.0 mg/dL Normal 7.0-18.0 [facility] [place] Comment on above: Performed By: #### C BC #### [facility] [address] [place] [address] Dr. Ray Fabian Urea nitrogen/Creatinin e [Mass ratio] 21.1 mg/mg Normal [facility] [place] Comment on above: Performed By: #### C BC #### [facility] [address] [address] [address] Ray Fabian TSHon 11-20-2021 TSH 3.003 uIU/mL Normal 0.358-3.740 [facility] Comment on above: Performed By: #### C BC #### [facility] [address] [place] [address] Dr. Ray Fabian GI PANEL (PCR)on 09-26-2021 Adenovirus F 40/41 Not detected Normal NOT DETECTED [facility] Comment on above: Performed By: #### G IPANEL #### [facility] [address] [place] [address] Dr. Ray Fabian Astrovirus Not detected Normal NOT DETECTED [facility] Comment on above: Performed By: #### G IPANEL #### [facility] [address] [place] [address] Dr. Ray Fabian C. Diff toxin A/B Not detected Normal NOT DETECTED [facility] Comment on above: Performed By: #### G IPANEL #### [facility] [address] [place] [address] Dr. Ray Fabian Campylobacter Not detected Normal NOT DETECTED [facility] Comment on above: Performed By: #### G IPANEL #### [facility] [address] [place] [address] Dr. Ray Fabian Cryptosporidium Not detected Normal NOT DETECTED [facility] Comment on above: Performed By: #### G IPANEL #### [facility] [address] [place] [address] Dr. Ray Fabian Cyclos. Cayetanensis Not detected Normal NOT DETECTED [facility] Comment on above: Performed By: #### G IPANEL #### [facility] [address] [place] [address] Dr. Ray Fabian E. Coli O157 Not Applicable Normal Not Applicable [facility] Comment on above: Performed By: #### G IPANEL #### [facility] [address] [place] [address] Dr. Ray Fabian E. histolytica Not detected Normal NOT DETECTED [facility] Comment on above: Performed By: #### G IPANEL #### [facility] [address] [place] [address] Dr. Ray Fabian EAEC Not detected Normal NOT DETECTED [facility] Comment on above: Performed By: #### G IPANEL #### [facility] [address] [place] [address] Dr. Ray Fabian EIEC Not detected Normal NOT DETECTED [facility] Comment on above: Performed By: #### G IPANEL #### [facility] [address] [place] [address] Dr. Ray Fabian EPEC Not detected Normal NOT DETECTED [facility] Comment on above: Performed By: #### G IPANEL #### [facility] [address] [address] [address] Ray Fabian ETEC Not detected Normal NOT DETECTED [facility] Comment on above: Performed By: #### G IPANEL #### [facility] [address] [address] [address] Ray Ardon Lamblia Not detected Normal NOT DETECTED [facility] Comment on above: Performed By: #### G IPANEL #### [facility] [address] [address] [address] Ray CHAVEZ CONTROLS PASSED Normal [facility] Comment on above: Performed By: #### G IPANEL #### [facility] [address] [address] [address] Ray SUAZO CARMEL HEADER GI PANEL BACTERIA Normal T [facility] Comment on above: Performed By: #### G IPANEL #### [facility] [address] [address] [address] Ray DORADO ECOLI GI PANEL DIARRHEAGEN IC E.COLI / SHIGELLA Normal [facility] [place] Comment on above: Performed By: #### G IPANEL #### [facility] [address] [place] [address] Dr. Ray DORADO INFO SEE BELOW Normal [facility] [place] Comment on above: Result Comment: EAEC - Enteroaggregative E. Coli EPEC- Enteropathogenic E. Coli ETEC- Enterotoxigenic E. Coli lt/st STEC- Shigella-like toxin-producing E. Coli stx1/stx2 EIEC- Shigella/Enteroinvasive E. Coli Performed By: #### G IPANEL #### [facility] [address] [address] [address] Ray DORADO PARASITES GI PANEL PARASITES Normal [facility] [place] Comment on above: Performed By: #### G IPANEL #### [facility] [address] [address] [address] Ray DORADO VIRUS GI PANEL VIRUSES Normal [facility] Comment on above: Performed By: #### G IPANEL #### [facility] [address] [place] [address] Dr. Ray Fabian Norovirus GI/GII Not detected Normal NOT DETECTED [facility] Comment on above: Performed By: #### G IPANEL #### [facility] [address] [place] [address] Dr. Ray Fabian P. Shigelloides Not detected Normal NOT DETECTED [facility] Comment on above: Performed By: #### G IPANEL #### [facility] [address] [place] [address] Dr. Ray Fabian Rotavirus A Not detected Normal NOT DETECTED [facility] Comment on above: Performed By: #### G IPANEL #### [facility] [address] [place] [address] Dr. Ray Fabian Salmonella Not detected Normal NOT DETECTED [facility] Comment on above: Performed By: #### G IPANEL #### [facility] [address] [place] [address] Dr. Ray Fabian Sapovirus Not detected Normal NOT DETECTED [facility] Comment on above: Performed By: #### G IPANEL #### [facility] [address] [place] [address] Dr. Ray Fabian STEC Not detected Normal NOT DETECTED [facility] Comment on above: Performed By: #### G IPANEL #### [facility] [address] [place] [address] Dr. Ray Fabian Vibrio Not detected Normal NOT DETECTED [facility] Comment on above: Performed By: #### G IPANEL #### [facility] [address] [place] [address] Dr. Ray Fabian Vibrio Cholera Not detected Normal NOT DETECTED [facility] Comment on above: Performed By: #### G IPANEL #### [facility] [address] [place] [address] Dr. Ray Fabian Y. Enterocolitica Not detected Normal NOT DETECTED [facility] Comment on above: Performed By: #### G IPANEL #### [facility] [address] [place] [address] Dr. Ray Fabian CULTURE URINEon 09-01-2021 CULTURE URINE Culture Observations : No growth Normal [facility] Comment on above: Performed By: #### C BC #### [facility] [address] [place] [address] Dr. Ray Fabian UA RANDOM W/MICROSCOPICon BACTERIA NONE SEEN Normal NONE SEEN [facility] Comment on above: Performed By: #### U AMIC #### [facility] [address] [place] [address] Dr. Ray Fabian Bilirubin Ql (U) Negative Normal NEGATIVE [facility] Comment on above: Performed By: #### U AMIC #### [facility] [address] [place] [address] Dr. Ray Fabian CAST NONE SEEN Normal NONE SEEN [facility] Comment on above: Performed By: #### U AMIC #### [facility] [address] [place] [address] Dr. Ray Fabian Clarity (U) CLEAR Normal CLEAR [facility] Comment on above: Performed By: #### U AMIC #### [facility] [address] [place] [address] Dr. Ray Fabian Color (U) YELLOW Normal YELLOW [facility] Comment on above: Performed By: #### U AMIC #### [facility] [address] [place] [address] Dr. Ray Fabian Crystals LM Nom (Urine sed) NONE SEEN Normal NONE SEEN [facility] Comment on above: Performed By: #### U AMIC #### [facility] [address] [place] [address] Dr. Ray Fabian Epithelial cells LM Ql (Urine sed) NONE SEEN Normal NONE SEEN /RARE [facility] Comment on above: Performed By: #### U AMIC #### [facility] [address] [place] [address] Dr. Ray Fabian Glucose Ql (U) Negative Normal NEGATIVE [facility] Comment on above: Performed By: #### U AMIC #### [facility] [address] [place] [address] Dr. Ray Fabian Hemoglobin Ql (U) Negative Normal NEGATIVE [facility] Comment on above: Performed By: #### U AMIC #### [facility] [address] [address] [address] Ray Fabian Ketones Ql (U) Negative Normal NEGATIVE [facility] Comment on above: Performed By: #### U AMIC #### [facility] [address] [address] [address] Ray Fabian LEUKOCYTES Negative Normal NEGATIVE [facility] Comment on above: Performed By: #### U AMIC #### [facility] [address] [address] [address] Ray Fabian MUCOUS NONE SEEN Normal NONE SEEN [facility] Comment on above: Performed By: #### U AMIC #### [facility] [address] [place] [address] Dr. Ray Fabian Nitrite Ql (U) Negative Normal NEGATIVE [facility] Comment on above: Performed By: #### U AMIC #### [facility] [address] [address] [address] Ray Fabian pH (U) 6.0 [pH] Normal 5-[address] [facility] Comment on above: Performed By: #### U AMIC #### [facility] [address] [address] [address] Ray Fabian RBC NONE SEEN Abnormal 0-2 [facility] [place] Comment on above: Performed By: #### U AMIC #### [facility] [address] [place] [address] Dr. Ray Fabian SPEC GRAVITY 1.025 Normal 1.005-<=1.025 [facility] Comment on above: Performed By: #### U AMIC #### [facility] [address] [address] [address] Ray Fabian UA PROTEIN Negative Normal NEGATIVE/ TRACE [facility] Comment on above: Performed By: #### U AMIC #### [facility] [address] [place] [address] Dr. Ray Fabian Urobilinogen Qn (U) 0.2 {Praveena'U}/dL Normal 0.2 - 1.[address] [facility] Comment on above: Performed By: #### U AMIC #### [facility] [address] [place] [address] Dr. Ray Fabian WBC NONE SEEN Normal NONE SEEN [facility] [place] Comment on above: Performed By: #### U AMIC #### [facility] [address] [place] [address] Dr. Ray Fabain CULTURE URINEon 2021 CULTURE URINE Isolate 1 Pseudomonas aeruginosa 30,000 cfu/mL of ORGANISM 1 Pseudomonas aeruginosa ANTIBIOTIC M.I.C RX STATUS Ceftazidime 4 S F Imipenem 1 S F Amikacin 4 S F Gentamicin <=1 S F Tobramycin <=1 S F Ciprofloxacin <=0.25 S F Levofloxacin 0.25 S F Normal [facility] Comment on above: Performed By: #### C BC #### [facility] [address] [place] [address] Dr. Ray Fabian UA RANDOM W/MICROSCOPICon BACTERIA SMALL Abnormal NONE SEEN [facility] [place] Comment on above: Performed By: #### U AMIC #### [facility] [address] [place] [address] Dr. Ray Fabian Bilirubin Ql (U) Negative Normal NEGATIVE [facility] Comment on above: Performed By: #### U AMIC #### [facility] [address] [place] [address] Dr. Ray Fabian CAST NONE SEEN Normal NONE SEEN [facility] [place] Comment on above: Performed By: #### U AMIC #### [facility] [address] [place] [address] Dr. Ray Fabian Clarity (U) CLOUDY Abnormal CLEAR [facility] Comment on above: Performed By: #### U AMIC #### [facility] [address] [place] [address] Dr. Ray Fabian Color (U) BROWN Abnormal YELLOW [facility] Comment on above: Performed By: #### U AMIC #### [facility] [address] [place] [address] Dr. Ray Faiban Crystals LM Nom (Urine sed) NONE SEEN Normal NONE SEEN [facility] [place] Comment on above: Performed By: #### U AMIC #### [facility] [address] [address] [address] Ray Fabian Epithelial cells LM Ql (Urine sed) FEW Abnormal NONE SEEN /RARE [facility] Comment on above: Performed By: #### U AMIC #### [facility] [address] [address] [address] Ray Fabian Glucose Ql (U) Negative Normal NEGATIVE [facility] Comment on above: Performed By: #### U AMIC #### [facility] [address] [address] [address] Ray Fabian Hemoglobin Ql (U) LARGE Abnormal NEGATIVE [facility] Comment on above: Performed By: #### U AMIC #### [facility] [address] [address] [address] Ray Fabian Ketones Ql (U) TRACE Abnormal NEGATIVE [facility] Comment on above: Performed By: #### U AMIC #### [facility] [address] [address] [address] Ray Fabian LEUKOCYTES TRACE Abnormal NEGATIVE [facility] Comment on above: Performed By: #### U AMIC #### [facility] [address] [address] [address] Ray Fabian MUCOUS SMALL Abnormal NONE SEEN [facility] Comment on above: Performed By: #### U AMIC #### [facility] [address] [address] [address] Ray Fabian Nitrite Ql (U) Negative Normal NEGATIVE [facility] Comment on above: Performed By: #### U AMIC #### [facility] [address] [address] [address] Ray Fabian pH (U) 5.0 [pH] Normal 5-[address] [facility] Comment on above: Performed By: #### U AMIC #### [facility] [address] [address] [address] Ray Fabian RBC (U) [#/Vol] /uL Abnormal 0-2 [facility] Comment on above: Performed By: #### U AMIC #### [facility] [address] [address] [address] Ray Fabian SPEC GRAVITY >=1.030 Abnormal 1.005-<=1.025 [facility] Comment on above: Performed By: #### U AMIC #### [facility] [address] [address] [address] Ray Fabian UA PROTEIN 100 mg/dl Abnormal NEGATIVE/ TRACE [facility] Comment on above: Performed By: #### U AMIC #### [facility] [address] [address] [address] Ray Fabian Urobilinogen Qn (U) 1.0 {Praveena'U}/dL Normal 0.2 - 1.[address] [facility] Comment on above: Performed By: #### U AMIC #### [facility] [address] [place] [address] Dr. Ray Fabian WBC 2-5 Abnormal NONE SEEN [facility] Comment on above: Performed By: #### U AMIC #### [facility] [address] [address] [address] Ray Fabian FREE T3on 06-26-2021 FREE T3 2.31 pg/mlL Critically low 2.77-5.27 [facility] Comment on above: Performed By: #### T SH, FT3 #### [facility] [address] [place] [address] Dr. Ray Fabian FREE T4on 06-26-2021 Free T4 [Mass/Vol] 0.88 ng/dL Normal 0.78-2.19 [facility] Comment on above: Performed By: #### F T4 #### [facility] [address] [place] [address] Dr. Ray Fabian TSHon 06-26-2021 TSH 3.608 uIU/mL Normal 0.470-4.680 [facility] Comment on above: Performed By: #### T SH, FT3 #### [facility] [address] [place] [address] Dr. Ray Fabian TSH RANGE SEE BELOW Normal [facility] Comment on above: Result Comment: <0.3 4 UIU/ml HYPERTHYROID 0.34-5.60 UIU/ml EUTHYROID >5.60 UIU/ml HYPOTHYROID Performed By: #### T SH, FT3 #### [facility] [address] [address] [address] Ray Fabian Gynecology Office/Clinic Not jennifer [...] visualized abdominally. Signature Line Preliminary Transcribed by: MARCUS Transcribed DT/TM: 02/04/2018 10:56 am REPORT This document has an image Result type: US Transvaginal Result date: February 04, 2018 10:22 EST Result status: Transcribed Result title: USTV US Transvaginal Performed by: Jacque Smith on February 04, 2018 10:22 EST [facility]: [id number][facility] - [1] Colonoscopy 12/04/2015. [2] [...] ESTElectronically signed by M Mckenzie aquino PA-C 02/04/18 11:50 EST Normal [facility] US Transvaginalon 02-04-2018 US Transvaginal EXAM(S) PREFORMED:Transvaginal [...] DO (Electronic Signature): 02/04/2018 1:31 pmTranscribed by: MARCUSTranscribed DT/TM: 02/04/2018 10:56(If Report Is Signed, Electronically Signed in Other Vendor System) Normal [facility] Ambulatory Patient Education on 01-31-2018 Ambulatory Patient Education Patient Education MaterialsName: Maria Douglass Current Date: 01/31/2018 10:55:40 [facility] 1950 following sheet(s) are the Patient Education Leaflets [facility]: Breast Self-AwarenessWhat is breast self-awareness?Breast self-awareness is [...] breast self-examination (BSE). These experts include the [place] [employer], the U.S. Preventive Services Task Force, and the [place] [employer]stetricians [employer] Gynecologists. Some experts [...] benign. This means they are not cancer.? 4404-[address] [employer] [place] [address]. All rights reserved. This information is not intended as a substitute for professional medical care. Always follow your healthcare professional's instructions. Normal [facility] Obstetrics Office/Clinic Not jennifer 01-29-2018 Obstetrics Office/Clinic [...] (1st grade to college) Mammogram 04/09/2017 @ [facility]-Benign. Bone Density 11/28/2016@ [facility]-Normal. She is taking vitamin D 1000IU daily and gets calcium through her diet. Colonoscopy 12/04/2015. PCP Dr. Sin in [place] does yearly check and does routine labs.Review [...] Sibling. Thyroid disease: Mother.Electronically signed by M Mckenzie aquino PA-C 01/29/18 10:41 EST Normal [facility] Ambulatory Patient Education on 01-27-2018 Ambulatory Patient Education Patient Education MaterialsName: Maria Douglass Current Date: 01/27/2018 11:40:45 [place] 1950 following sheet(s) are the Patient Education Leaflets for [facility]: Breast Self-AwarenessWhat is breast self-awareness?Breast self-awareness [...] breast self-examination (BSE). These experts include the [place] [employer], the U.S. Preventive Services Task Force, and the [place] [employer] Obstetricians and Gynecologists. Some experts [...] benign. This means they are not cancer.? [id number] [employer] [place], [place] [address]. All rights reserved. This information is not intended as a substitute for professional medical care. Always follow your healthcare professional's instructions. Normal [facility] Encounters Encounter Date Encounter Type Care Provider Facility Start: 01-07-2024 End: 01-07-2024 ambulatory YANELI GRAVES Facility:[facility] Start: 01-07-2024 End: 01-07-2024 Patient encounter procedure Yaneli Graves MD Work Phone: Ophthalmology Comment on above: Combined forms of ag e-related cataract of right eye (Primary Dx); Combined forms of age-related cataract of left eye; Keratoconjunctivitis sicca of both eyes not specified as Sjogren's; Wears contact lenses; PVD (posterior vitreous detachment), bilateral Start: 03-26-2022 End: 03-27-[address] MARY WILSON Facility:[facility] Start: 01-08-2022 End: 01-09-2022 ambulatory SUSY ALICEA Facility:[facility] Start: 12-08-2021 End: 12-09-2021 ambulatory SUSY ALICEA Facility:[facility] Start: 11-30-2021 End: 12-01-2021 ambulatory SUSY ALICEA Facility:[facility] Start: 11-20-2021 End: 11-21-2021 ambulatory SUSY ALICEA Facility:[facility] Start: 09-26-2021 End: 09-26-[address] THELMA SIN Facility:[facility] Start: 09-01-2021 End: 09-02-2021 ambulatory SUSY ALICEA Facility:[facility] Start: 08-22-2021 End: 08-23-2021 ambulatory SUSY ALICEA Facility:[facility] Start: 06-26-2021 End: 06-27-2021 ambulatory KRISTYN WATSON Facility:[facility] Start: 02-04-2018 End: 02-05-2018 Patient encounter procedure MCKENZIE GARCIA Facility:[facility] Start: 02-04-2018 End: 02-05-2018 Patient encounter procedure ELISHA JOSUE Facility:[facility] Start: 01-29-2018 End: 01-30-2018 Patient encounter procedure MCKENZIE GARCIA Facility:[facility] Plan of Treatment Date Care Activity Detail Author Start: 2025 RSV Vaccine (1 - 1-dose 75+ series) RSV Vaccine (1 - 1-dose 75+ series) [facility] Start: 01-20-2025 End: 06-29-2025 CORNEAL TOPOGRAPHY ATLAS OU (BOTH EYES) CORNEAL TOPOGRAPHY ATLAS OU (BOTH EYES) OPHT Imaging Routine Combined forms of age-related cataract of right eye Combined forms of age-related cataract of left eye Expected: 01/20/2025, Expires: 06/29/2025 [facility] Comment on above: Expected: 01/20/2025, Expires: Start: 01-06-2025 End: 06-30-2025 ASCAN ONLY - DIAGNOSTIC OU (BOTH EYES) ASCAN ONLY - DIAGNOSTIC OU (BOTH EYES) OPHT Imaging Routine Combined forms of age-related cataract of right eye Combined forms of age-related cataract of left eye Expected: 01/06/2025, Expires: 06/30/2025 [facility] Comment on above: Expected: 01/06/2025, Expires: Start: 01-06-2025 End: 06-30-2025 IOL BIOMETRY W/ IOL CALC OU (BOTH EYES) IOL BIOMETRY W/ IOL CALC OU (BOTH EYES) OPHT Imaging Routine Combined forms of age-related cataract of right eye Combined forms of age-related cataract of left eye Expected: 01/06/2025, Expires: 06/30/2025 [facility] Comment on above: Expected: 01/06/2025, Expires: Start: 12-31-2024 End: 06-29-2025 OCT MACULA CIRRUS OU (BOTH EYES) OCT MACULA CIRRUS OU (BOTH EYES) OPHT Imaging Routine Combined forms of age-related cataract of right eye Combined forms of age-related cataract of left eye Expected: 12/31/2024, Expires: 06/29/[address] [facility] Work Phone: Comment on above: Expected: 12/31/2024, Expires: Start: 03-04-2024 End: 03-04-2024 Admission to same day surgery center 03/04/2024 9:25 AM EST - 03/04/2024 10:00 AM EST Surgery Ambulatory Surgery [address] CRISTINAHALES [place] [address] Yaneli Grvaes MD [address] [facility] [place] [place] [address] PHACOEMULSIFICATION CATARACT IMPLANT INTRAOCULAR LENS W/O ENDOSCOPIC CYCLOPHOTOCOAGULATION Ambulatory Surgery Comment on above: PHACOEMULSIFICATION CATARACT IMPLANT INT RAOCULAR LENS W/O ENDOSCOPIC CYCLOPHOTOCOAGULATION Start: 03-04-2024 End: 03-04-2024 Oph bmtry prtl coher intrfrmtry io lens pwr [place] OPHTHALMIC BIOMETRY BY PARTIAL COHERENCE INTERFEROMETRY W/INTRAOCULAR LENS POWER CALCULATION Combined forms of age-related cataract of right eye 03/04/2024 9:25 AM EST IVAN CRISTINA Start: 03-04-2024 Subsequent hospital visit by physician 03/04/2024 9:25 AM EST Hospital Encounter Ambulatory Surgery [address] [place] [address] Yaneli Graves MD [address] [facility] [place] [address] Combined forms of age-related cataract of right eye [H25.811] Ambulatory Surgery Comment on above: Combined forms of age-related cataract o f right eye [H25.811] Start: 03-04-2024 End: 03-04-2024 Xcapsl ctrc rmvl insj io lens prosth w/o ecp PHACOEMULSIFICATION CATARACT IMPLANT INTRAOCULAR LENS W/O ENDOSCOPIC CYCLOPHOTOCOAGULATION Combined forms of age-related cataract of right eye 03/04/2024 9:25 AM [facility] IVAN CRISTINA Start: 02-24-2024 End: 02-24-2024 Admission to same day surgery center 02/24/2024 11:05 AM EST - 02/24/2024 11:40 AM EST Surgery Ambulatory Surgery [address] [facility] [place] [address] Yaneli Graves MD [address] [facility] [place] [address] PHACOEMULSIFICATION CATARACT IMPLANT INTRAOCULAR LENS W/O ENDOSCOPIC CYCLOPHOTOCOAGULATION Ambulatory Surgery Comment on above: PHACOEMULSIFICATION CATARACT IMPLANT INT RAOCULAR LENS W/O ENDOSCOPIC CYCLOPHOTOCOAGULATION Start: 02-24-2024 End: 02-24-2024 Oph bmtry prtl coher intrfrmtry io lens pwr [place] OPHTHALMIC BIOMETRY BY PARTIAL COHERENCE INTERFEROMETRY W/INTRAOCULAR LENS POWER CALCULATION Combined forms of age-related cataract of left eye 02/24/2024 11:05 AM EST IVAN IBETH Start: 02-24-2024 Subsequent hospital visit by physician 02/24/2024 11:05 AM EST Hospital Encounter Ambulatory Surgery [address] [facility] [place] [address] Yaneli Graves MD [address] [place] [address] Combined forms of age-related cataract of left eye [H25.812] Ambulatory Surgery Comment on above: Combined forms of age-related cataract o f left eye [H25.812] Start: 02-24-2024 End: 02-24-2024 Xcapsl ctrc rmvl insj io lens prosth w/o ecp PHACOEMULSIFICATION CATARACT IMPLANT INTRAOCULAR LENS W/O ENDOSCOPIC CYCLOPHOTOCOAGULATION Combined forms of age-related cataract of left eye 02/24/2024 11:05 AM EST IVAN CRISTINA Start: 02-17-2024 End: 02-17-2024 Patient encounter procedure 02/17/2024 11:00 AM EST Office Visit [facility] [address] [facility] [place] [address] CATARACT SURGERY LEFT THEN RIGHT -STAR / COMANAGED Ophthalmology Comment on above: CATARACT SURGERY LEFT THEN RIGHT -STAR / COMANAGED Start: 02-17-2024 End: 02-17-2024 Admission to same day surgery center 02/17/2024 10:20 AM EST PAT Pre Anesthesia [address] [facility] [place] [address] 1, Pacc Jack [address] [facility] [place] [address] CATARACT SURGERY LEFT THEN RIGHT -STAR / COMANAGED Pre Anesthesia Comment on above: CATARACT SURGERY LEFT THEN RIGHT -STAR / GOLDEN Start: 01-07-2024 End: 06-29-2025 CORNEAL TOPOGRAPHY PENTACAM OU (BOTH EYES) CORNEAL TOPOGRAPHY PENTACAM OU (BOTH EYES) OPHT Imaging Routine Combined forms of age-related cataract of right eye Combined forms of age-related cataract of left eye Expected: 01/07/2024, Expires: 06/29/2025 [facility] Comment on above: Expected: 01/07/2024, Expires: Start: 11-24-2023 Covid-19 Vaccine () Covid-19 Vaccine () [facility] Start: 11-24-2023 Influenza vaccination Influenza Vaccine (#1) [facility] Start: 03-25-2023 Advance Directive Discussion Advance Directive Discussion [facility] Start: 01-09-2018 Pneumococcal Vaccine: 65+ (2 of 2 - PPSV23 or PCV20) Pneumococcal Vaccine: 65+ (2 of 2 - PPSV23 or PCV20) [facility] Start: 08-26-2015 Screening for osteoporosis Bone Density Screening [facility] Start: 08-26-1995 Diabetes Screening Diabetes Screening [facility] Start: 08-26-1995 Lipid panel Lipid Screening [facility] Start: 08-26-1995 Screening for malignant neoplasm of colon [facility] Start: 1990 Screening for malignant neoplasm of breast Mammogram Screening [facility] Start: 1969 Urine microalbumin profile DTaP,Tdap,Td Vaccine (1 - Tdap) [facility] Start: 1968 Anxiety Screening Anxiety Screening [facility] Start: 1968 Depression Screening Depression Screening [facility] Start: 1968 Hepatitis C screening Hepatitis C Screening [facility] Immunizations Immunization Date Immunization Notes Care Provider Fa cility 12-18-2019 influenza virus vacc ine, unspecified formulation Yaneli Graves MD Work Phone: [facility] Payers Date Payer Category Payer Medicare AETNA MEDICARE A ETNA MEDICARE PPO [id number] 2023-Present [phone] [address] [place] [address] PPO [id number] 2017 Private Health Insurance 1959 Medicare [id number] 1959 Medicare [id number] 1950 Unknown [id number] 1950 Unknown [id number] 96 1950 Unknown [id number] [id number] 96 1950 Unknown [id number] 2.16.840.1.189892.3.579.2.5 1950 Unknown [id number] 2.16.840.1.000393.3.579.2.5 1950 Unknown [id number] 2.16.840.1.242008.3.579.2.5 93 1950 Unknown [id number] [id number] 93 1950 Unknown [id number] 2.16.840.1.184338.3.579.2.5 93 1950 Unknown [id number] 2.16.840.1.315602.3.579.2.5 93 1950 Unknown [id number] 2.16.840.1.691221.3.579.2.5 93 1950 Unknown [id number] [id number] 93 1950 Unknown [id number] 93 Social History Date Type Detail Facility Tobacco smoking stat [facility] Tobacco smoking consumption unknown [facility] Start: 01-07-2024 History of Social function [facility] Start: 01-07-2024 Area Deprivation Index [facility] National Score (1-10 0), lower number is lower risk 67 [facility] Start: 1950 Sex assigned at Not on file [facility] Progress note 01-07-2024 Note Date & Type Note Facility 01-07-2024 Note HNO ID: [id number] Author: YANELI GRAVES MD Service: ? Author Type: Physician Type: Progress Notes Filed: 01/07/2024 17:19 Note Text: ASSESSMENT/PLAN: 1. Combined forms of age-related cataract of right eye - ICD9: 366.19, ICD10: H25.811 (primary diagnosis) 2. Combined forms of age-related cataract of left eye - ICD9: 366.19, ICD10: H25.812 Worsening vision symptoms x 1 year. Past success with monovision CL wear - OD removed CL to see at near, OS distance; has attempted MF fitting with poor success (?poor tolerance vs cataract). The documentation for this note was completed by Janette Aguilar acting as a scribe for, and in the presence of, Dr. Yaneli Graves M.D. 01/07/24 CORNEAL TOPOGRAPHY: right eye 1.2 diopters at 92 degrees, slightly irregular; wore CLs; needs K topog repeated OU at ultrasound. left eye 1.5 diopters at 74 degrees, irregular Mac OCT: Normal foveal contour, no Subretinal fluid, no intraretinal fluid in both eyes Cataract Presurgical Documentation Cataract: Both eyes (OU) Current Visual Acuity Right Eye Distance CC 20/30 Left Eye Distance CC 20/30 Best Corrected Vision Right Eye 20/25 Best Corrected Vision Left Eye 20/20 Glare Testing: Right Eye High 20/60 Left Eye High 20/60 Visual Function: Maria Douglass states that the decline in vision from the cataract impedes her abilities as listed in the HPI, as well as other activities of daily living. Maria Douglass has confirmed that she is no longer able to function adequately on a day-to-day basis because of her current visual condition. Further, it is my medical opinion that the cataract is the primary cause, or at least a significantly contributory cause of her visual dysfunction. With uncomplicated cataract surgery and lens implantation, it is my expectation that her visual function and quality of life will improve, significantly. The risks, benefits, alternatives, personnel and complications of cataract surgery with lens implantation were discussed with Maria Douglass in detail. she appeared to understand and asked that I proceed with plans for surgery. Offered Phacoemulsification cataract extraction with insertion of intraocular lens by Dr. Graves OS / OD. Patient wishes to proceed with surgery. All questions were answered. A-scan to be performed pre-operatively. Referred by Dr. Banks, Thank you for your kind referral! Allergies: see list - Aim: Charlotte OS / TBD OD, possibly -1.50 OD. Patient had CL aimed for distance. States she would take CL out of the right eye to see up close while having left eye able to see distance. Patient is right eye dominant. Determined in office today. However, she wants her right eye to be her reading eye if she tolerates this after having her left eye corrected for distance. - Discussed pros and cons of multifocal IOLs including cost and 20% risk of night glare - Discussed multifocal Intraocular lens not covered by insurance Yes $2900 per eye. - Patient understands out of pocket cost and Patient Declines having multifocal intraocular lenses. -She was told that we cannot guarantee 20/20 without correction after cataract surgery. - Anesthesia: Topical with MAC - Diabetes Mellitus No - Blood thinner use No - Flomax/alpha-alida? No - Able to lie supine Yes - Wants versed Yes - Happy for prayer Yes - Warned of IOL-induced photopsias Yes - Advised there is no guarantee of freedom from glasses Yes; -Discussed possible increased sensitivity and starbursting when exposed to flickering lights such as LED and fluorescent lights after cataract surgery, which usually decreases with time. - Discussed toric Intraocular lens not covered by insurance Yes $1400 per eye - Toric candidate: Offered Toric lens if patient qualifies by Ultrasound measurements. Without the toric IOL, patient was told that she may still need to wear glasses to correct residual astigmatism at all distances. Even with toric IOL, we cannot guarantee no residual astigmatism. - Contact lens use Yes. Currently soft lenses. Patient wore CLs today; Patient needs K topog OU at ultrasound. Patient was told to leave CLs out for at least three days before ultrasound and for one day before cataract surgery. - e-scribed eye drops - Literature regarding cataract and cataract extraction by phacoemulsification offered. - Co-mange with Dr. Banks 3. Keratoconjunctivitis sicca of both eyes not specified as Sjogren's - ICD9: 370.33, ICD10: H16.223 Longstanding. Continue Restasis BID OU. Continue Ivizia prn. OD always worse - CL intolerance lately OD due to worsening dry eye symptoms. K staining OS>OD today. Consider punctal plug OD following cataract sx. 4. Wears contact lenses - ICD9: V41.0, ICD10: Z97.3 Wearing CLs today. Golden OU at eye measurement appointment. 5. PVD, bilateral Floaters will persist after cataract surgery. Signs and symptoms of floaters were discuss (more content not included)... [facility] History of Present illness Narrative 01-07-2024 Yaneli Graves MD - 01/07/2024 11:52 AM EDT Note Date & Type Note Facility 01-07-2024 History of Presen t illness Narrative ASSESSMENT/PLAN: 1. Combined forms of age-related cataract of right eye - ICD9: 366.19, ICD10: H25.811 (primary diagnosis) 2. Combined forms of age-related cataract of left eye - ICD9: 366.19, ICD10: H25.812 Worsening vision symptoms x 1 year. Past success with monovision CL wear - OD removed CL to see at near, OS distance; has attempted MF fitting with poor success (?poor tolerance vs cataract). The documentation for this note was completed by Janette Aguilar acting as a scribe for, and in the presence of, Dr. Yaneli Graves M.D. 01/07/24 CORNEAL TOPOGRAPHY: right eye 1.2 diopters at 92 degrees, slightly irregular; wore CLs; needs K topog repeated OU at ultrasound. left eye 1.5 diopters at 74 degrees, irregular Mac OCT: Normal foveal contour, no Subretinal fluid, no intraretinal fluid in both eyes Cataract Presurgical Documentation Cataract: Both eyes (OU) Current Visual Acuity Right Eye Distance CC 20/30 Left Eye Distance CC 20/30 Best Corrected Vision Right Eye 20/25 Best Corrected Vision Left Eye 20/20 Glare Testing: Right Eye High 20/60 Left Eye High 20/60 Visual Function: Maria Douglass states that the decline in vision from the cataract impedes her abilities as listed in the HPI, as well as other activities of daily living. Maria Douglass has confirmed that she is no longer able to function adequately on a day-to-day basis because of her current visual condition. Further, it is my medical opinion that the cataract is the primary cause, or at least a significantly contributory cause of her visual dysfunction. With uncomplicated cataract surgery and lens implantation, it is my expectation that her visual function and quality of life will improve, significantly. The risks, benefits, alternatives, personnel and complications of cataract surgery with lens implantation were discussed with Maria Douglass in detail. she appeared to understand and asked that I proceed with plans for surgery. Offered Phacoemulsification cataract extraction with insertion of intraocular lens by Dr. Graves OS / OD. Patient wishes to proceed with surgery. All questions were answered. A-scan to be performed pre-operatively. Referred by Dr. Banks, Thank you for your kind referral! Allergies: see list - Aim: Charlotte OS / TBD OD, possibly -1.50 OD. Patient had CL aimed for distance. States she would take CL out of the right eye to see up close while having left eye able to see distance. Patient is right eye dominant. Determined in office today. However, she wants her right eye to be her reading eye if she tolerates this after having her left eye corrected for distance. - Discussed pros and cons of multifocal IOLs including cost and 20% risk of night glare - Discussed multifocal Intraocular lens not covered by insurance Yes $2900 per eye. - Patient understands out of pocket cost and Patient Declines having multifocal intraocular lenses. -She was told that we cannot guarantee 20/20 without correction after cataract surgery. - Anesthesia: Topical with MAC - Diabetes Mellitus No - Blood thinner use No - Flomax/alpha-alida? No - Able to lie supine Yes - Wants versed Yes - Happy for prayer Yes - Warned of IOL-induced photopsias Yes - Advised there is no guarantee of freedom from glasses Yes; -Discussed possible increased sensitivity and starbursting when exposed to flickering lights such as LED and fluorescent lights after cataract surgery, which usually decreases with time. - Discussed toric Intraocular lens not covered by insurance Yes $1400 per eye - Toric candidate: Offered Toric lens if patient qualifies by Ultrasound measurements. Without the toric IOL, patient was told that she may still need to wear glasses to correct residual astigmatism at all distances. Even with toric IOL, we cannot guarantee no residual astigmatism. - Contact lens use Yes. Currently soft lenses. Patient wore CLs today; Patient needs K topog OU at ultrasound. Patient was told to leave CLs out for at least three days before ultrasound and for one day before cataract surgery. - e-scribed eye drops - Literature regarding cataract and cataract extraction by phacoemulsification offered. - Co-mange with Dr. Banks 3. Keratoconjunctivitis sicca of both eyes not specified as Sjogren's - ICD9: 370.33, ICD10: H16.223 Longstanding. Continue Restasis BID OU. Continue Ivizia prn. OD always worse - CL intolerance lately OD due to worsening dry eye symptoms. K staining OS>OD today. Consider punctal plug OD following cataract sx. 4. Wears contact lenses - ICD9: V41.0, ICD10: Z97.3 Wearing CLs today. Golden OU at eye measurement appointment. 5. PVD, bilateral Floaters will persist after cataract surgery. Signs and symptoms of floaters were discussed. We reviewed the signs and symptoms of retinal tear/retinal detachment and the importance of prompt evaluation should there be increasing floaters, new flashing lights, or decreasing peripheral vision in either eye at any time. Kay Jackson, OD Offered cataract Surgery OS/OD soon. Copy of today's visit note was sent to Dr. Banks. Return for PAT, ultrasound, Intraocular lens calculations, and surgery. Yaneli Graves MD The documentation for this note was completed by OMA Ruth acting as a scribe for, and in the presence of, Dr. Yaneli Graves M.D. 01/07/24 The documentation recorded by the scribe accurately reflects the service I personally performed and the decisions made by me. I have confirmed and edited as necessary the relevant HPI, ophthalmic history, ROS, and the neuro exam findings as obtained by others. I have seen and examined Maria Douglass. I have discussed the case and the management of this patient's care with the Resident/Fellow, if applicable. I also have reviewed and agree with the assessment and plan as stated above and agree with all of its relevant components. Yaneli Graves MD 01/07/24 documented in this encounter [facility] Evaluation note Note Date & Type Note Facility Evaluation note Diagnosis Combined forms of age-related cataract of right eye- Primary Other and combined forms of senile cataract Combined forms of age-related cataract of left eye Other and combined forms of senile cataract Keratoconjunctivitis sicca of both eyes not specified as Sjogren's Keratoconjunctivitis sicca, not specified as Sjogren's Wears contact lenses Problems with sight PVD (posterior vitreous detachment), bilateral Combined forms of age-related cataract of left eye Other and combined forms of senile cataract Combined forms of age-related cataract of right eye Other and combined forms of senile cataract documented in this encounter [facility] Summary Purpose Family History No Family History Records FoundNo Family History Records FoundNo Family History Records Found Advance Directives No Advanced Directives Records FoundNo Advanced Directives Records FoundNo Advanced Directives Records Found Additional Source Comments INFORMATION SOURCE (unrecogn ized section and content) DATE CREATED AUTHOR 03/02/2018 [facility] DATE CREATED AUTHOR AUTHOR'S ORGANIZ ATION 03/26/2022 [facility] DATE CREATED AUTHOR AUTHOR'S ORGANIZ ATION 01/09/2024 [facility] Source Comments (unrecognize d section and content) In the event this informatio n is protected by the Federal Confidentiality of Alcohol and Drug Abuse Patient Records regulations: The Federal rules restrict any use of the information to criminally investigate or prosecute any alcohol or drug abuse patient.[facility] Reason for Visit (unrecogniz ed section and content) Reason Comments Cataract Evaluation Care Teams (unrecognized sec tion and content) Staff Climate Scientist Relationship Specialty Start Date End Date Susy Alicea CNP [address] [place] [address] PCP - General Internal Medicine 01/03/24 FOR RECORDS PERTAINING TO PATIENTS WHO ARE [...] BE BASED ON THE PRIMARY CLINICAL RECORDS. [facility] [email or web address] [facility]. provides no warranty or guarantee of the accuracy or completeness of information in this document.
[2024-01-17 09:39] LABS: Basophils Percent Auto 0.2 % (0.2-2.0); Eosinophils Absolute Auto 0.1 10^3/uL (0.0-0.7); Eosinophils Percent Auto 2.5 % (0.9-7.0); Hematocrit 40.7 % (36.0-48.0); Hemoglobin 13.2 g/dL (12.0-16.0); Immature Granulocytes Abs Auto 0.01 10^3/uL (0.00-0.03); Immature Granulocytes Pct Auto 0.2 % (0.0-0.5); Lymphocytes Absolute Auto 0.9 10^3/uL (1.2-3.8); Lymphocytes Percent Auto 21.7 % (20.5-60.0); Mean Corpuscular HGB Conc 32.4 g/dL (29.9-35.2); Mean Corpuscular Hemoglobin 30.8 pg (26.7-34.0); Mean Corpuscular Volume 94.9 fL (81.0-99.0); Monocytes Absolute Auto 0.3 10^3/uL (0.3-0.8); Monocytes Percent Auto 8.4 % (1.7-12.0); Neutrophils Absolute Auto 2.7 10^3/uL (1.4-6.5); Platelet Count 210 10^3/uL (150-450); Red Blood Count 4.29 10^6/uL (4.20-5.40); Red Cell Distribution Width 13.2 % (11.0-15.0); White Blood Count 4.1 10^3/uL (4.0-11.0)
== END 2024-01-17 09:20 | disposition home or self-care (01) ==
LOC: LAB 09:20
PROVIDERS: PCP Nurse Practitioner Family; Visit Provider Nurse Practitioner Family
DX: D72.819 Decreased white blood cell count, unspecified (principal)
CPT/HCPCS: 36415; 85025

== ENCOUNTER 2024-04-06 11:28 | Outpatient (OUT) | payer MEDICARE, SELFPAY ==
--- NOTE | 2024-04-06 11:31 | MM_ITS ---
Patient Name: DAVID DOUGLASS MR#: [id number] : 1950 Exam Date: 04/06/2024 Ordering Doctor: SRIRAM ALICEA CNP RADIOLOGY REPORT PROCEDURE: MM TOMOSYNTHESIS SCREENING BI COMPARISON: MG MAMM SCREEN 3D RUKHSANA CAD, 03/26/2022. MM TOMOSYNTHESIS SCREENING BI, 04/01/2023. INDICATIONS: Screening Calculator Name NCI Breast Cancer Risk Assessment Tool 5 Year Breast Cancer Risk 1.60% Lifetime Breast Cancer Risk 3.90% Personal Breast Cancer No Personal Ovarian Cancer No Treatments None Family Cancers Grandfather-paternal with breast cancer at age 70; Father with stomach cancer at age 55; Sister with lung cancer at age 50. LOCATION: The [facility] BREAST COMPOSITION: There are scattered areas of fibroglandular density. FINDINGS: DIAGNOSTIC CATEGORY 1--NEGATIVE. NO CHANGE FROM COMPARISON ASSESSMENT. RIGHT BREAST: No significant suspicious finding. LEFT BREAST: No significant suspicious finding. RECOMMENDATIONS: ROUTINE MAMMOGRAM AND CLINICAL EVALUATION IN 12 MONTHS. PLEASE NOTE: A NORMAL MAMMOGRAM DOES NOT EXCLUDE THE POSSIBILITY OF BREAST CANCER. A CLINICALLY SUSPICIOUS PALPABLE LUMP SHOULD BE BIOPSIED. Dictated by: Sanju Pereira MD on 04/06/2024 at 13:20 Approved by: Sanju Pereira MD on 04/06/2024 at 13:22
--- OUTSIDE RECORDS SUMMARY | 2024-04-06 11:36 | XMS_ITS | CCD ---
Author Organization [facility] Care Team Providers Care Sergeant Missile Crewman Name Role Phone MCKENZIE GARCIA Unavailable Unavailable ELISHA JOSUE Unavailable Unavailable MCKENZIE GARCIA Unavailable Unavailable KRISTYN WATSON Attending Unavailable KRISTYN WATSON Consulting Unavailable KRISTYN WATSON Admitting Unavailable DEANNE, SUSY Primary Care Unavailable STEVE, DR MARY Ren Consulting Unavailable DEANNE, SUSY Attending Unavailable DEANNE, SUSY Primary Care Unavailable DEANNE, SUSY Admitting Unavailable DEANNE, SUSY Consulting Unavailable DEANNE, SUSY Primary Care Unavailable DR THELMA SIN Consulting Unavailable DR THELMA SIN Admitting Unavailable DR THELMA SIN Attending Unavailable DEANNE, SUSY Primary Care Unavailable DEANNE, SUSY Attending Unavailable DEANNE, SUSY Admitting Unavailable DEANNE, SUSY Consulting Unavailable DEANNE, SUSY Primary Care Unavailable DR JAIRO ALVAREZ Consulting Unavailable DEANNE, SUYS Attending Unavailable DEANNE, SUSY Admitting Unavailable DEANNE, [...] Consulting Unavailable DEANNE, SUSY Primary Care Unavailable Susy Alicea CNP Primary Care Provider SUSY ALICEA Primary Care Unavailable YANELI GRAVES Admitting Unavailable YANELI GRAVES Referring Unavailable YANELI GRAVES Attending Unavailable YANELI GRAVES Referring Unavailable YANELI GRAVES Attending Unavailable YANELI GRAVES Admitting Unavailable SUSY ALICEA Primary Care Unavailable YANELI GRAVES Attending Unavailable NANDO BANKS Referring Unavailab le SUSY ALICEA S Primary Care Unavailable SUSY ALICEA S Primary Care Unavailable YANELI GRAVES Referring Unavailable SUSY ALICEA S Primary Care Unavailable Medications Current Medications Medication Drug Class(es) Dates Sig (Normalized) Sig (Original) cycloSPORINE 0.5 mg/ml ophthalmic suspension (3 sources) Calcineurin Inhibitor Immunosuppressant Start: 09-14-2023 cycloSPORINE 0.05 % drop 09/14/2023 Active ofloxacin 3 mg/ml ophthalmic solution (3 sources) Quinolone Antimicrobial Start: 01-07-2024 End: 04-06-2024 take [...] Documented Date Episodic/Chronic Blindness and vision defects (4 sources) Does use contact lenses; Translations: [Presence of spectacles and contact lenses] Onset: 4 01-07-2024 Episodic Cataract (12 sources) Senile combined form cataract of right eye; Translations: [Combined forms of age-related cataract, right eye] Onset: 4 01-06-2024 Chronic Deficiency and [...] that caused by tuberculosis or sexually transmitteddisease) (4 sources) Keratoconjunctivitis sicca; Translations: [Keratoconjunctivitis sicca, not specified as Sjogren's, bilateral] Onset: 4 01-07-2024 Chronic Menopausal disorders (1 source) Other primary ovarian failure; Translations: [OTHER PRIMARY OVARIAN FAILURE] Onset: 2 Chronic Other eye disorders (4 sources) Bilateral posterior vitreous detachment; Translations: [Vitreous [...] Test Name Value Interpretation Reference Range Facility ANES POSTPROC EVALon 024 ANES POSTPROC EVAL HNO ID: [id number] Author: TAN STACY MD Service: Anesthesiology Author Type: Anesthesiologist Type: Anesthesia Postprocedure Evaluation Filed: 03/04/2024 12:30 Note Text: POST ANESTHESIA EVALUATION NOTE : 1950 Procedure Summary Date: 03/04/24 Room / Location: [address] Anesthesia Start: 1144 Anesthesia Stop: 1207 Procedures: PHACOEMULSIFICATION CATARACT IMPLANT INTRAOCULAR LENS W/O ENDOSCOPIC CYCLOPHOTOCOAGULATION (Right: Eye) OPHTHALMIC BIOMETRY BY PARTIAL COHERENCE INTERFEROMETRY W/INTRAOCULAR LENS POWER CALCULATION (Right: Eye) Diagnosis: Combined forms of age-related cataract of right eye (Combined forms of age-related cataract of right eye [H25.811]) Surgeons: Yaneli Graves MD Responsible Provider: Tan Stacy MD Anesthesia Type: MAC ASA Status: 2 Anesthesia Type: MAC Last Vitals Vitals Value Taken Time BP 131/68 03/04/24 1220 Temp 36.3 ?C (97.3 ?F) 03/04/24 1210 HR SpO2 65 03/04/24 1220 Resp 16 03/04/24 1220 SpO2 97 % 03/04/24 1220 Post Anesthesia Patient Status Patient Evaluation: PACU. PACU/ICU Patient Condition: stable. Anticipated Disposition: phase 2 then home. Neurological Status: aware and responsive. Pulmonary Status: breathing comfortably on room air Airway Control: returned to baseline unsupported. Cardiovascular Status: stable. Pain Management: clinically adequate Postoperative Hydration: acceptable. Intraoperative Events: no significant anesthesia events Recommendation: continue current plan of care. Anesthesia Observations No Documentation SIGNATURE: Tan Stacy MD PATIENT NAME: Maria Douglass DATE: March 04, 2024 TIME: 12:30 PM CSN: [id number] Normal [facility] ANES PRE-OPon 03-04-2024 ANES PRE-OP HNO ID: [id number] Author: TAN STACY MD Service: Anesthesiology Author Type: Anesthesiologist Type: Anesthesia Preprocedure Evaluation Filed: 03/04/2024 10:56 Note Text: ANESTHESIOLOGY DAY OF SURGERY NOTE : 1950 Procedure Information Date/Time: 03/04/24 1100 Procedures: PHACOEMULSIFICATION CATARACT IMPLANT INTRAOCULAR LENS W/O ENDOSCOPIC CYCLOPHOTOCOAGULATION (Right: Eye) OPHTHALMIC BIOMETRY BY PARTIAL COHERENCE INTERFEROMETRY W/INTRAOCULAR LENS POWER CALCULATION (Right: Eye) Location: [address] Surgeons: Yaneli Graves MD Estimated body mass index is 21.19 kg/m? as calculated from the following: Height as of 02/17/24: 162.6 cm (5' 4 ). Weight as of 02/17/24: 56 kg (123 lb 7.3 oz). Most recent hematocrit and potassium results: No results found for this basename: HCT,HEMATOCRIT,K,POTASSIUM Relevant Problems No relevant active problems I - PHYSICAL EVALUATION AIRWAY Patient intubated: No. Tracheostomy tube not present Mallampati: II. TM distance: >3 FB. Neck ROM: full ROM without neurological symptoms. Mouth opening: adequate. Short neck: no. Thick neck: no DENTAL Normal dental observations. Dental findings: teeth intact and chipped. Additional exam findings: yes. CARDIOVASCULAR Normal cardiovascular observations. Rhythm: regular Rate: normal PULMONARY Normal pulmonary observations. Breath sounds clear to auscultation. II - ANESTHESIA PLAN ASA Score: 2 Anesthetic Plan: MAC The patient is not a current smoker. NPO Status: adequate Beta Ky Monitoring Plan Monitoring plan: standard ASA. Post Procedure Analgesic Plan Postoperative analgesic plan: multimodal analgesia. Informed Consent Anesthetic risks, benefits, alternatives, personnel and consent discussed: yes. Patient / Responsible Constitution Party agrees to proceed: yes Patient / Surrogate agrees to blood products: yes Significant changes in the patient condition since the History and Physical, not otherwise documented in primary service progress note: no. Potential Anesthesia issues that may suggest increased risk of complications or contraindication to planned procedure: none. Vitals Value Taken Time BP 165/81 03/04/24 1034 Pulse 59 03/04/24 1034 Resp 16 03/04/24 1034 Temp 36.3 ?C (97.4 ?F) 03/04/24 1034 SpO2 98 % 03/04/24 1034 Facility-Administered Medications as of 03/04/2024 Medication Dose Route Frequency [COMPLETED] tetracaine (PF) 0.5 % 2 Drop (OPTICAINE) 2 Drop RIGHT EYE EVERY 5 MINUTES X 3 DOSES [COMPLETED] PHENYLephrine 2.5 % 1 Drop (AK-DILATE, FELIZ-SYNEPHRINE) 1 Drop RIGHT EYE EVERY 5 MINUTES X 3 DOSES [COMPLETED] tropicamide 1 % 1 Drop (MYDRIACYL) 1 Drop RIGHT EYE EVERY 5 MINUTES X 3 DOSES cyclopentolate 1 % 1 Drop (CYCLOGYL) 1 Drop RIGHT EYE Pre-Op PRN [COMPLETED] keTORolac 0.5 % 1 Drop (ACULAR) 1 Drop RIGHT EYE q 5 MIN [COMPLETED] Povidone-Iodine 5 % 30 mL ophth soln (BETADINE) 30 mL RIGHT EYE ONCE [COMPLETED] balanced salt 15 mL (BSS) 15 mL RIGHT EYE ONCE [COMPLETED] tetracaine (PF) 0.5 % 2 Drop (OPTICAINE) 2 Drop LEFT EYE EVERY 5 MINUTES X 3 DOSES [COMPLETED] PHENYLephrine 2.5 % 1 Drop (AK-DILATE, FELIZ-SYNEPHRINE) 1 Drop LEFT EYE EVERY 5 MINUTES X 3 DOSES [COMPLETED] tropicamide 1 % 1 Drop (MYDRIACYL) 1 Drop LEFT EYE EVERY 5 MINUTES X 3 DOSES [COMPLETED] keTORolac 0.5 % 1 Drop (ACULAR) 1 Drop LEFT EYE q 5 MIN [COMPLETED] Povidone-Iodine 5 % 30 mL ophth soln (BETADINE) 30 mL LEFT EYE ONCE [COMPLETED] balanced salt 15 mL (BSS) 15 mL LEFT EYE ONCE Outpatient Medications as of 03/04/2024 Medication Sig prednisoLONE acetate (PRED FORTE) 1 % ophthalmic suspension Use one drop in operative eye as directed by Dr. Graves starting tomorrow. keTORolac (ACULAR) 0.5 % ophthalmic solution Use one drop in operative eye as directed by Dr. Graves starting tomorrow. cycloSPORINE 0.05 % drop I have interviewed and examined the patient. I have reviewed the medical record and/or the pre-anesthesia evaluation, pertinent labs, and test results. This contains updated information obtained within 48 hours of Surgery/Procedure. SIGNATURE: Tan Stacy MD PATIENT NAME: Maria Douglass DATE: March 04, 2024 TIME: 10:56 AM CSN: [id number] Normal [facility] OPERATIVE NOon 03-04-2024 OPERATIVE NO HNO ID: [id number] Author: YANELI GRAVES MD Service: Ophthalmology Author Type: Physician Type: Operative Report Filed: 03/04/2024 12:09 Note Text: OPERATIVE/PROCEDURE REPORT LOG ID: [id number] Surgery/Procedure Date: 03/04/2024 Incision/Procedure Start Time: 11:57 AM Incision Close/Procedure End Time: 12:05 PM Surgeon(s)/Proceduralist(s ) and Pbx Wire Chief(s): Surgeons and Role: * Yaneli Graves MD - Primary Pbx Wire Chief: None. Any nurse listed as assisting or otherwise participating in this case has performed only the duties of a circulating nurse. Anesthesia: Monitored Anesthesia Care Pre-Op/Pre-Procedure Diagnosis: Pre-Op Diagnosis Codes: * Combined forms of age-related cataract of right eye [H25.811] Regular astigmatism, right eye Post-Op/Post-Procedure Diagnosis: Post-Op Diagnosis Codes: * Combined forms of age-related cataract of right eye [H25.811] Regular astigmatism, right eye Procedure(s): Procedure(s) (LRB): PHACOEMULSIFICATION CATARACT IMPLANT INTRAOCULAR LENS W/O ENDOSCOPIC CYCLOPHOTOCOAGULATION (Right) OPHTHALMIC BIOMETRY BY PARTIAL COHERENCE INTERFEROMETRY W/INTRAOCULAR LENS POWER CALCULATION (Right) Procedure Details: The patient was brought to the operating room and placed in the supine position on the operating table in the usual fashion. An IV was in place, as well as EKG, and BP monitoring. Nasal oxygen was administered. A Time Out confirmed that we had the correct patient, correct eye, correct operation, and correct implant. The [employer] Lens verification Policy was meticulously followed as previously approved with both an initial lens verification by myself in the presence of the Nurse Coordinator and the oil refinery process technician and a secondary full lens verification as part of the Time Out, with patient identity, laterality, and lens choice confirmed against the source document by myself, the Marketing Communications Specialist Nurse, and the oil refinery process technician. Topical lidocaine gel 2% was placed in a small ribbon in the lower cul-de-sac. Tetracaine drops were placed in the eye, then the patient was positioned seated and with the patient fixing on a distant target, we placed lyons at the 3 and 9 o?clock position at the surgical limbus using a purple surgical marker. The patient was then placed supine, where they were prepped and draped in the usual sterile fashion for intraocular surgery. Under the operating microscope an eyelid speculum was inserted and a beveled clear corneal incision was created with a [place] blade then a 2.4 mm keratome. The anterior chamber was reformed with Viscoat, after which the anterior capsule was opened centrally. Using the Utrata forceps a continuous curvilinear capsulorrhexis of approximately 5.5 mm round was created. Gentle hydrodissection was accomplished using preservative-free lidocaine on a 27-guage cannula. Using the Vinnie phacoemulsification unit with the [employer] curved tip, the anterior chamber was entered and the nucleus was removed while it was in the bag. The epinuclear ring was dissected into several segments, then removed using the phacoemulsification unit set to the desired aspiration flow rate and ultrasound parameters. Great care was taken not to violate the posterior capsule. The phaco CDE was 24.38.The silicone-tipped I and A instrument was used to remove the cortex and buff off any remaining cataractous material from the posterior capsule. The capsular bag was then reformed with viscoelastic and an Vinnie 21.5 diopter T4 cylindrical power toric lens was inserted through the lips of the wound into the capsular bag (see lens implant information below). The intraocular lens was then rotated to an axis of 101 degrees, using the previously placed scleral ink markings as a guide. The axis determination was dictated by the preoperative vector analysis. Using the I and A instrument, the viscoelastic was removed from the anterior chamber and capsular bag, and the implant was centered. Intracameral Moxifloxacin 0.1 cc was injected. The wound was checked and found to be watertight. At the end of the procedure, the cornea was clear, the anterior chamber was deep and clear, the pupil was round, the implant was centered and at the appropriate rotational axis within the capsular bag, and the posterior capsule was intact. The eyelid speculum was removed and drops of topical steroid, timolol and ketorolac (if no allergy) were administered. A shield was affixed over the eye and the patient was sent to the recovery room, leaving the operating room in excellent condition. Estimated Blood Loss: 0 ml Specimens: None. I have reviewed the images and report from the Ophthalmic Biometry March 04, 2024 to determine the Intraocular lens Power Calculation for the IOL lens implant. I have interpreted and agree with the calculation of the IOL as listed below. Implants: Implant Name Type Inv. Item Serial No. Aviation Technician Aircraft Lot No. LRB No. Used (more content not included)... Normal [facility] ANES POSTPROC EVALon 024 ANES POSTPROC EVAL HNO ID: [id number] Author: ADDY ALCANTARA II, DO Service: Anesthesiology Author Type: Anesthesiologist Type: Anesthesia Postprocedure Evaluation Filed: 02/26/2024 12:14 Note Text: POST ANESTHESIA EVALUATION NOTE : 1950 Procedure Summary Date: 02/26/24 Room / Location: [place] [address] / [facility] Anesthesia Start: 1105 Anesthesia Stop: 1127 Procedures: PHACOEMULSIFICATION CATARACT IMPLANT INTRAOCULAR LENS W/O ENDOSCOPIC CYCLOPHOTOCOAGULATION (Left: Eye) OPHTHALMIC BIOMETRY BY PARTIAL COHERENCE INTERFEROMETRY W/INTRAOCULAR LENS POWER CALCULATION (Left: Eye) Diagnosis: Combined forms of age-related cataract of left eye (Combined forms of age-related cataract of left eye [H25.812]) Surgeons: Yaneli Graves MD Responsible Provider: Addy Alcantara II, DO Anesthesia Type: MAC ASA Status: 2 Anesthesia Type: MAC Last Vitals Vitals Value Taken Time BP 127/76 02/26/24 1140 Temp 36.1 ?C (97 ?F) 02/26/24 1135 HR SpO2 62 02/26/24 1140 Resp 16 02/26/24 1140 SpO2 100 % 02/26/24 1140 Post Anesthesia Patient Status Patient Evaluation: PACU. PACU/ICU Patient Condition: stable. Neurological Status: aware and responsive. Pulmonary Status: breathing comfortably on room air Airway Control: returned to baseline unsupported. Cardiovascular Status: stable. Pain Management: clinically adequate Postoperative Hydration: acceptable. Intraoperative Events: no significant anesthesia events Post Operative Nausea/Vomiting Status: no significant post operative nausea or vomiting Recommendation: continue current plan of care. Anesthesia Observations No Documentation SIGNATURE: Addy Alcantara II, DO PATIENT NAME: Maria Douglass DATE: February 26, 2024 TIME: 12:14 PM CSN: [id number] Normal [facility] ANES PRE-OPon 02-26-2024 ANES PRE-OP HNO ID: [id number] Author: ADDY ALCANTARA II, DO Service: Anesthesiology Author Type: Anesthesiologist Type: Anesthesia Preprocedure Evaluation Filed: 02/26/2024 10:27 Note Text: ANESTHESIOLOGY DAY OF SURGERY NOTE : 1950 Procedure Information Date/Time: 02/26/24 1040 Procedures: PHACOEMULSIFICATION CATARACT IMPLANT INTRAOCULAR LENS W/O ENDOSCOPIC CYCLOPHOTOCOAGULATION (Left: Eye) OPHTHALMIC BIOMETRY BY PARTIAL COHERENCE INTERFEROMETRY W/INTRAOCULAR LENS POWER CALCULATION (Left: Eye) Location: [address] Surgeons: Yaneli Graves MD Estimated body mass index is 21.19 kg/m? as calculated from the following: Height as of 02/17/24: 162.6 cm (5' 4 ). Weight as of 02/17/24: 56 kg (123 lb 7.3 oz). Most recent hematocrit and potassium results: No results found for this basename: HCT,HEMATOCRIT,K,POTASSIUM Relevant Problems No relevant active problems I - PHYSICAL EVALUATION AIRWAY Patient intubated: No. Tracheostomy tube not present Mallampati: III. TM distance: >3 FB. Neck ROM: limited extension. Mouth opening: adequate. Short neck: no. Thick neck: no DENTAL Dental findings: teeth intact. Additional exam findings: yes. CARDIOVASCULAR Rhythm: regular Rate: normal PULMONARY Breath sounds clear to auscultation. II - ANESTHESIA PLAN ASA Score: 2 Anesthetic Plan: MAC The patient is not a current smoker. NPO Status: adequate Beta Ky Monitoring Plan Monitoring plan: standard ASA. Post Procedure Analgesic Plan Postoperative analgesic plan: parenteral or oral opioids. Informed Consent Anesthetic risks, benefits, alternatives, personnel and consent discussed: yes. Patient / Responsible Constitution Party agrees to proceed: yes Patient / Surrogate agrees to blood products: Yes No vitals data found for the desired time range. No current facility-administered medications on file as of 02/26/2024. Outpatient Medications as of 02/26/2024 Medication Sig - cycloSPORINE 0.05 % drop I have interviewed and examined the patient. I have reviewed the medical record and/or the pre-anesthesia evaluation, pertinent labs, and test results. This contains updated information obtained within 48 hours of Surgery/Procedure. SIGNATURE: Addy Alcantara II, DO PATIENT NAME: Maria Douglass DATE: February 26, 2024 TIME: 10:15 AM CSN: [id number] Normal [facility] OPERATIVE NOon 02-26-2024 OPERATIVE NO HNO ID: [id number] Author: YANELI GRAVES MD Service: Ophthalmology Author Type: Physician Type: Operative Report Filed: 02/26/2024 11:27 Note Text: OPERATIVE/PROCEDURE REPORT LOG ID: [id number] Surgery/Procedure Date: 02/26/2024 Incision/Procedure Start Time: 11:17 AM Incision Close/Procedure End Time: 11:24 AM Surgeon(s)/Proceduralist(s ) and Pbx Wire Chief(s): Surgeons and Role: * Yaneli Graves MD - Primary Pbx Wire Chief: None. Any nurse listed as assisting or otherwise participating in this case has performed only the duties of a circulating nurse. Anesthesia: Monitored Anesthesia Care Pre-Op/Pre-Procedure Diagnosis: Pre-Op Diagnosis Codes: * Combined forms of age-related cataract of left eye [H25.812] Regular astigmatism, left eye Post-Op/Post-Procedure Diagnosis: Post-Op Diagnosis Codes: * Combined forms of age-related cataract of left eye [H25.812] Regular astigmatism, left eye Procedure(s): Procedure(s) (LRB): PHACOEMULSIFICATION CATARACT IMPLANT INTRAOCULAR LENS W/O ENDOSCOPIC CYCLOPHOTOCOAGULATION (Left) OPHTHALMIC BIOMETRY BY PARTIAL COHERENCE INTERFEROMETRY W/INTRAOCULAR LENS POWER CALCULATION (Left) Procedure Details: The patient was brought to the operating room and placed in the supine position on the operating table in the usual fashion. An IV was in place, as well as EKG, and BP monitoring. Nasal oxygen was administered. A Time Out confirmed that we had the correct patient, correct eye, correct operation, and correct implant. The [employer] Lens verification Policy was meticulously followed as previously approved with both an initial lens verification by myself in the presence of the Nurse Coordinator and the oil refinery process technician and a secondary full lens verification as part of the Time Out, with patient identity, laterality, and lens choice confirmed against the source document by myself, the Marketing Communications Specialist Nurse, and the oil refinery process technician. Topical lidocaine gel 2% was placed in a small ribbon in the lower cul-de-sac. Tetracaine drops were placed in the eye, then the patient was positioned seated and with the patient fixing on a distant target, we placed lyons at the 3 and 9 o?clock position at the surgical limbus using a purple surgical marker. The patient was then placed supine, where they were prepped and draped in the usual sterile fashion for intraocular surgery. Under the operating microscope an eyelid speculum was inserted and a beveled clear corneal incision was created with a [place] blade then a 2.4 mm keratome. The anterior chamber was reformed with Viscoat, after which the anterior capsule was opened centrally. Using the Utrata forceps a continuous curvilinear capsulorrhexis of approximately 5.5 mm round was created. Gentle hydrodissection was accomplished using preservative-free lidocaine on a 27-guage cannula. Using the Vinnie phacoemulsification unit with the [employer] curved tip, the anterior chamber was entered and the nucleus was removed while it was in the bag. The epinuclear ring was dissected into several segments, then removed using the phacoemulsification unit set to the desired aspiration flow rate and ultrasound parameters. Great care was taken not to violate the posterior capsule. The phaco CDE was 29.13.The silicone-tipped I and A instrument was used to remove the cortex and buff off any remaining cataractous material from the posterior capsule. The capsular bag was then reformed with viscoelastic and an Vinnie 18.0 diopter T5 cylindrical power toric lens was inserted through the lips of the wound into the capsular bag (see lens implant information below). The intraocular lens was then rotated to an axis of 72 degrees, using the previously placed scleral ink markings as a guide. The axis determination was dictated by the preoperative vector analysis. Using the I and A instrument, the viscoelastic was removed from the anterior chamber and capsular bag, and the implant was centered. Intracameral Moxifloxacin 0.1 cc was injected. The wound was checked and found to be watertight. At the end of the procedure, the cornea was clear, the anterior chamber was deep and clear, the pupil was round, the implant was centered and at the appropriate rotational axis within the capsular bag, and the posterior capsule was intact. The eyelid speculum was removed and drops of topical steroid, timolol and ketorolac (if no allergy) were administered. A shield was affixed over the eye and the patient was sent to the recovery room, leaving the operating room in excellent condition. Estimated Blood Loss: 0 ml Specimens: None. I have reviewed the images and report from the Ophthalmic Biometry February 26, 2024 to determine the Intraocular lens Power Calculation for the IOL lens implant. I have interpreted and agree with the calculation of the IOL as listed below. Implants: Implant Name Type Inv. Item Serial No. Aviation Technician Aircraft Lot No. LRB No. Used Action (more content not included)... Normal [facility] ASCAN ONLY - DIAGNOSTIC OU ( BOTH EYES)on 02-17-2024 [facility] Radiology Study observation (narrative) [facility] HISTORY PHYSICALon HISTORY PHYSICAL HNO ID: [id number] Author: CECY RAMOS APRN.CNP Service: ? Author Type: Nurse Practitioner Type: H&P Filed: 02/17/2024 10:20 Note Text: HISTORY AND PHYSICAL EXAMINATION SERVICE DATE: 02/17/2024 SERVICE TIME: 10:10 AM PRIMARY CARE PHYSICIAN: Susy Alicea CNP, EMBEDDED SYSTEMS SOFTWARE DEVELOPER REASON FOR VISIT: Maria Douglass is a 73 year old female who is scheduled for at the request of Dr. Yaneli Graves for consultation. My final recommendation will be communicated back to the requesting physician by way of shared medical record or letter. Assessment Patient has the following medical conditions which may affect aylin-operative course: No problem-specific Assessment AND Plan notes found for this encounter. [place] Activity Status Index: METS: Walk indoors, such as around the house (1.75 METs) Do light work around the house, such as dusting or washing dishes (2.70 METs) Take care of self; that is eating, dressing, bathing, using the toilet (2.75 METs) Walk a block or two on level ground (2.75 METs) Do moderate work around the house, such as vacuuming, sweeping floors, or carrying in groceries (3.50 METs) Climb a flight of stairs or walk up a hill (5.50 METs) DASI Score: 18.95 Patient denies any chest pain or undue shortness of breath with the above physical activity. STOP-Bang Score: Patient over 50 years old Denies snoring loudly Denies feeling tired, fatigued, or sleepy during the daytime Has not been observed to stop breathing or choking/gasping during sleep Denies having high blood pressure BMI less than or equal to 35 kg/m2 Does not have a large neck Non-male patient STOP-Bang Score: 1 [id number] Score: Age: <65 Sex: female CHF history: No Hypertension history: No Stroke/TIA/thromboembolism history: No Vascular disease history: No Diabetes history: No [id number] Score: 1 ARISCAT Score: Age: <=50 Preoperative SpO2: >=96% Respiratory infection in the last month: No Preoperative anemia: No Surgical incision: peripheral Duration of surgery: <2 hrs Emergency procedure: No ARISCAT Score: 0 ANESTHESIA FINDINGS: Intubation History: No history of difficult intubation Significant Anesthesia Considerations: none Airway History: No history of difficult airway Airway Exam: General: Normal appearance There is no height or weight on file to calculate BMI. Mallampati Score is CLASS I ULBT: Class I - Lower incisors can bite the upper lip above the raysa line Neck: Normal appearance and function, Distance from hyoid to mentum during neck extension is at least 3 finger breaths Mouth: Normal tongue size and Mouth opening greater than 2 finger breaths Dentition: Intact Airway History: No abnormal airway history Planned Anesthetic: Per anesthesia choice Prepared for surgery: This patient is optimally prepared for surgery. CONSULTS: Patient does not require consults for optimization at this time. The Following Tests/Procedures Have Been Initiated: Labs not indicated per PACC protocol, EKG not indicated per [facility] protocol Planned Anesthetic: Per anesthesia choice Subjective CHIEF COMPLAINT: Visual Changes HPI: 73 year old year old presents today with complaints of difficulty with vision. Found to have cataract on exam. Denies pain. No relieving factors. No past medical history on file. PAST SURGICAL HISTORY Procedure Laterality Date COLONOSCOPY REPAIR ING HERNIA,5+Y/O,REDUCIBL No family history on file. SOCIAL HISTORY: Social History Tobacco Use Smoking status: Never Smokeless tobacco: Never Substance Use Topics Alcohol use: Yes Comment: 1x monthly Drug use: Not Currently Prior to Admission medications as of 02/17/24 1005 Medication Sig Last Dose Taking cycloSPORINE 0.05 % drop Taking Yes ofloxacin (OCUFLOX) 0.3 % ophthalmic solution 1 Drop four times daily. One drop in the OPERATIVE EYE only four times a day starting the day before surgery Taking Yes No medication comments found. ALLERGIES No Known Allergies Covid Immunization Dates Overdue - Covid-19 Vaccine ( season) Never done No completion, postpone, frequency change, or communication history exists for this topic. REVIEW OF SYSTEMS: PAIN ASSESSMENT: General: No weight loss, malaise or fevers. Neuro: No history of TIA's, stroke, DAYCARE TEACHER tumor, impaired sensorium, hemiplegia, paraplegia or quadraplegia. No neurological symptoms or problems. Respiratory: No history of current cough or dyspnea, or pneumonia in the past 6 weeks. No history of respiratory/pulmonary symptoms or problems. 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 : Denies, No LMP recorded. Patient is postmenopausal. Endocrine: No history of d (more content not included)... Normal [facility] IOL BIOMETRY W/ IOL CALC OU (BOTH EYES)on 02-17-2024 [facility] Radiology Study observation (narrative) [facility] MG MAMM SCREEN 3D RUKHSANA CADon 03-26-2022 MG MAMM SCREEN 3D RUKHSANA CAD Patient: MARIA DOUGLASS Exam Date: 03/26/2022 : 1950 Gender:F Ordering : [facility] Admission #: [id number] Family : Order #: [id number] CLICK HERE TO VIEW EXAM RADIOLOGY REPORT [...] lung cancer at age 50. LOCATION: [facility] BREAST COMPOSITION: Scattered areas fibroglandular density. [...] MD on 03/26/2022 at 11:02 Normal [facility] CBC AUTO DIFFon 01-08-2022 BASO # 0.0 103/ul Normal 0.0-0.1 [facility] Comment on above: Performed By: #### C BC #### [facility] [address] [address] [address] Ray Fabian Basophils/100 WBC (Bld) 0.5 % Normal 0.2-2.0 [facility] Comment on above: Performed By: #### C BC #### [facility] [address] [address] [address] Ray Fabian EO # 0.1 103/ul Normal 0.0-0.7 [facility] Comment on above: Performed By: #### C BC #### [facility] [address] [place] [address] Dr. Ray Fabian Eosinophils/100 WBC (Bld) 3.0 % Normal 0.9-7.0 [facility] Comment on above: Performed By: #### C BC #### [facility] [address] [place] [address] Dr. Ray Fabian Erythrocyte distribution width (RBC) [Ratio] 14.0 % Normal 11.0-15.0 [facility] Comment on above: Performed By: #### C BC #### [facility] [address] [place] [address] Dr. Ray Fabian Hematocrit (Bld) [Volume fraction] 37.6 % Normal 36.0-48.0 [facility] Comment on above: Performed By: #### C BC #### [facility] [address] [place] [address] Dr. Ray Fabian Hemoglobin (Bld) [Mass/Vol] 12.1 g/dL Normal 12.0-16.0 [facility] Comment on above: Performed By: #### C BC #### [facility] [address] [place] [address] Dr. Ray Fabian IG # 0.01 10e3/ul Normal 0.00-0.03 [facility] Comment on above: Performed By: #### C BC #### [facility] [address] [place] [address] Dr. Ray Fabian IG % 0.3 % Normal 0.0-0.5 [facility] Comment on above: Performed By: #### C BC #### [facility] [address] [place] [address] Dr. Ray Fabian LYMPH # 1.3 103/ul Normal 1.2-3.8 [facility] Comment on above: Performed By: #### C BC #### [facility] [address] [place] [address] Dr. Ray Fabian Lymphocytes/100 WBC (Bld) 32.9 % Normal 20.5-60.0 [facility] Comment on above: Performed By: #### C BC #### [facility] [address] [place] [address] Dr. Ray Fabian MANUAL DIFF REQ NO Normal [facility] Comment on above: Performed By: #### C BC #### [facility] [address] [place] [address] Dr. Ray Fabian MCH (RBC) [Entitic mass] 30.3 pg Normal 26.7-34.0 [facility] Comment on above: Performed By: #### C BC #### [facility] [address] [place] [address] Dr. Ray Fabian MCHC (RBC) [Mass/Vol] 32.2 g/dL Normal 29.9-35.2 [facility] Comment on above: Performed By: #### C BC #### [facility] [address] [place] [address] Dr. Ray Fabian MCV (RBC) [Entitic vol] 94.2 fL Normal 81.0-99.0 [facility] Comment on above: Performed By: #### C BC #### [facility] [address] [place] [address] Dr. Ray Fabian MONO # 0.4 103/ul Normal 0.3-0.8 [facility] Comment on above: Performed By: #### C BC #### [facility] [address] [place] [address] Dr. Ray Fabian Monocytes/100 WBC (Bld) 9.8 % Normal 1.7-12.0 [facility] Comment on above: Performed By: #### C BC #### [facility] [address] [place] [address] Dr. Ray Fabian NEUT # 2.1 103/ul Normal 1.4-6.5 [facility] Comment on above: Performed By: #### C BC #### [facility] [address] [place] [address] Dr. Ray Fabian Neutrophils/100 WBC (Bld) 53.5 % Normal 43.0-75.0 [facility] Comment on above: Performed By: #### C BC #### [facility] [address] [address] [address] Ray Fabian Platelet mean volume (Bld) [Entitic vol] 9.7 fL Normal 9.5-13.5 [facility] Comment on above: Performed By: #### C BC #### [facility] [address] [address] [address] Ray Fabian PLT 205 103/ul Normal 150-450 [facility] Comment on above: Performed By: #### C BC #### [facility] [address] [place] [address] Dr. Ray Fabian RBC 3.99 106/ul Critically low 4.20-5.40 [facility] Comment on above: Performed By: #### C BC #### [facility] [address] [place] [address] Dr. Ray Fabian WBC 4.0 103/ul Normal 4.0-11.0 [facility] Comment on above: Performed By: #### C BC #### [facility] [address] [place] [address] Dr. Ray Fabian CBC AUTO DIFFon 12-08-2021 BASO # 0.0 103/ul Normal 0.0-0.1 [facility] Comment on above: Performed By: #### C BC #### [facility] [address] [place] [address] Dr. Ray Fabian Basophils/100 WBC (Bld) 0.5 % Normal 0.2-2.0 [facility] Comment on above: Performed By: #### C BC #### [facility] [address] [place] [address] Dr. Ray Fabian EO # 0.1 103/ul Normal 0.0-0.7 [facility] Comment on above: Performed By: #### C BC #### [facility] [address] [place] [address] Dr. Ray Fabian Eosinophils/100 WBC (Bld) 2.7 % Normal 0.9-7.0 [facility] Comment on above: Performed By: #### C BC #### [facility] [address] [place] [address] Dr. Ray Fabian Erythrocyte distribution width (RBC) [Ratio] 14.9 % Normal 11.0-15.0 [facility] Comment on above: Performed By: #### C BC #### [facility] [address] [place] [address] Dr. Ray Fabian Hematocrit (Bld) [Volume fraction] 35.3 % Critically low 36.0-48.0 [facility] Comment on above: Performed By: #### C BC #### [facility] [address] [place] [address] Dr. Ray Fabian Hemoglobin (Bld) [Mass/Vol] 11.4 g/dL Critically low 12.0-16.0 [facility] Comment on above: Performed By: #### C BC #### [facility] [address] [place] [address] Dr. Ray Fabian IG # 0.00 10e3/ul Normal 0.00-0.03 [facility] Comment on above: Performed By: #### C BC #### [facility] [address] [place] [address] Dr. Ray Fabian IG % 0.0 % Normal 0.0-0.5 [facility] Comment on above: Performed By: #### C BC #### [facility] [address] [place] [address] Dr. Ray Fabian LYMPH # 1.0 103/ul Critically low 1.2-3.8 [facility] Comment on above: Performed By: #### C BC #### [facility] [address] [place] [address] Dr. Ray Fabian Lymphocytes/100 WBC (Bld) 25.9 % Normal 20.5-60.0 [facility] Comment on above: Performed By: #### C BC #### [facility] [address] [place] [address] Dr. Ray Fabian MANUAL DIFF REQ NO Normal [facility] Comment on above: Performed By: #### C BC #### [facility] [address] [place] [address] Dr. Ray Fabian MCH (RBC) [Entitic mass] 29.8 pg Normal 26.7-34.0 [facility] Comment on above: Performed By: #### C BC #### [facility] [address] [place] [address] Dr. Ray Fabian MCHC (RBC) [Mass/Vol] 32.3 g/dL Normal 29.9-35.2 [facility] Comment on above: Performed By: #### C BC #### [facility] [address] [place] [address] Dr. Ray Fabian MCV (RBC) [Entitic vol] 92.4 fL Normal 81.0-99.0 [facility] Comment on above: Performed By: #### C BC #### [facility] [address] [place] [address] Dr. Ray Fabian MONO # 0.3 103/ul Normal 0.3-0.8 [facility] Comment on above: Performed By: #### C BC #### [facility] [address] [place] [address] Dr. Ray Fabian Monocytes/100 WBC (Bld) 8.4 % Normal 1.7-12.0 [facility] Comment on above: Performed By: #### C BC #### [facility] [address] [place] [address] Dr. Ray Fabian NEUT # 2.3 103/ul Normal 1.4-6.5 [facility] Comment on above: Performed By: #### C BC #### [facility] [address] [place] [address] Dr. Ray Fabian Neutrophils/100 WBC (Bld) 62.5 % Normal 43.0-75.0 [facility] Comment on above: Performed By: #### C BC #### [facility] [address] [place] [address] Dr. Ray Fabian Platelet mean volume (Bld) [Entitic vol] 9.7 fL Normal 9.5-13.5 [facility] Comment on above: Performed By: #### C BC #### [facility] [address] [address] [address] Ray Fabian PLT 218 103/ul Normal 150-450 [facility] Comment on above: Performed By: #### C BC #### [facility] [address] [address] [address] Ray Fabian RBC 3.82 106/ul Critically low 4.20-5.40 [facility] Comment on above: Performed By: #### C BC #### [facility] [address] [id number] Ray Fabian WBC 3.7 103/ul Critically low 4.0-11.0 [facility] Comment on above: Performed By: #### C BC #### [facility] [address] [address] [address] Ray Fabian XR DEXA BONE DENSITYon [...] JAIRO ALVAREZ Date: 2021-11-30 11:50 Normal [facility] INSULINon 11-21-2021 Insulin 3.9 uIU/mL Normal 2.6-24.9 [facility] Comment on above: Performed By: #### C BC #### [facility] [address] [address] [address] Ray Fabian T4, T3U, FTI LABCORPon 11-21 Free Thyroxine Index 1.9 Normal 1.2-4.9 [facility] Comment on above: Performed By: #### C BC #### [facility] [address] [place] [address] Dr. Ray Fabian T3 Uptake 27 % Normal 24-39 [facility] Comment on above: Performed By: #### C BC #### [facility] [address] [place] [address] Dr. Ray Fabian T4 [Mass/Vol] 6.9 ug/dL Normal 4.5-12.0 [facility] Comment on above: Performed By: #### C BC #### [facility] [address] [place] [address] Dr. Ray Fabian CBC AUTO DIFFon 11-20-2021 BASO # 0.0 103/ul Normal 0.0-0.1 [facility] Comment on above: Performed By: #### C BC #### [facility] [address] [place] [address] Dr. Ray Fabian Basophils/100 WBC (Bld) 0.3 % Normal 0.2-2.0 [facility] Comment on above: Performed By: #### C BC #### [facility] [address] [place] [address] Dr. Ray Fabian EO # 0.1 103/ul Normal 0.0-0.7 [facility] Comment on above: Performed By: #### C BC #### [facility] [address] [place] [address] Dr. Ray Fabian Eosinophils/100 WBC (Bld) 2.4 % Normal 0.9-7.0 [facility] Comment on above: Performed By: #### C BC #### [facility] [address] [place] [address] Dr. Ray Fabian Erythrocyte distribution width (RBC) [Ratio] 14.7 % Normal 11.0-15.0 [facility] Comment on above: Performed By: #### C BC #### [facility] [address] [place] [address] Dr. Ray Fabian Hematocrit (Bld) [Volume fraction] 40.0 % Normal 36.0-48.0 [facility] Comment on above: Performed By: #### C BC #### [facility] [address] [place] [address] Dr. Ray Fabian Hemoglobin (Bld) [Mass/Vol] 13.0 g/dL Normal 12.0-16.0 [facility] Comment on above: Performed By: #### C BC #### [facility] [address] [place] [address] Dr. aRy Fabian IG # 0.01 10e3/ul Normal 0.00-0.03 [facility] Comment on above: Performed By: #### C BC #### [facility] [address] [place] [address] Dr. Ray Fabian IG % 0.3 % Normal 0.0-0.5 [facility] Comment on above: Performed By: #### C BC #### [facility] [address] [place] [address] Dr. Ray Fabian LYMPH # 1.1 103/ul Critically low 1.2-3.8 [facility] Comment on above: Performed By: #### C BC #### [facility] [address] [place] [address] Dr. Ray Fabian Lymphocytes/100 WBC (Bld) 31.8 % Normal 20.5-60.0 [facility] Comment on above: Performed By: #### C BC #### [facility] [address] [place] [address] Dr. Ray Fabian MANUAL DIFF REQ NO Normal [facility] Comment on above: Performed By: #### C BC #### [facility] [address] [place] [address] Dr. Ray Fabian MCH (RBC) [Entitic mass] 29.7 pg Normal 26.7-34.0 [facility] Comment on above: Performed By: #### C BC #### [facility] [address] [place] [address] Dr. Ray Fabian MCHC (RBC) [Mass/Vol] 32.5 g/dL Normal 29.9-35.2 [facility] Comment on above: Performed By: #### C BC #### [facility] [address] [address] [address] Ray Fabian MCV (RBC) [Entitic vol] 91.3 fL Normal 81.0-99.0 [facility] Comment on above: Performed By: #### C BC #### [facility] [address] [address] [address] Ray Fabian MONO # 0.3 103/ul Normal 0.3-0.8 [facility] Comment on above: Performed By: #### C BC #### [facility] [address] [place] [address] Dr. Ray Fabian Monocytes/100 WBC (Bld) 7.6 % Normal 1.7-12.0 [facility] Comment on above: Performed By: #### C BC #### [facility] [address] [place] [address] Dr. Ray Fabian NEUT # 2.0 103/ul Normal 1.4-6.5 [facility] Comment on above: Performed By: #### C BC #### [facility] [address] [place] [address] Dr. Ray Fabian Neutrophils/100 WBC (Bld) 57.6 % Normal 43.0-75.0 [facility] Comment on above: Performed By: #### C BC #### [facility] [address] [place] [address] Dr. Ray Fabian Platelet mean volume (Bld) [Entitic vol] 9.6 fL Normal 9.5-13.5 [facility] Comment on above: Performed By: #### C BC #### [facility] [address] [place] [address] Dr. Ray Fabian PLT 209 103/ul Normal 150-450 [facility] Comment on above: Performed By: #### C BC #### [facility] [address] [place] [address] Dr. Ray Fabian RBC 4.38 106/ul Normal 4.20-5.40 [facility] Comment on above: Performed By: #### C BC #### [facility] [address] [address] [address] Ray Fabian WBC 3.4 103/ul Critically low 4.0-11.0 [facility] Comment on above: Performed By: #### C BC #### [facility] [address] [address] [address] Ray Fabian GLYCOHEMOGLOBIN A1Con 2021 ADA RECOMMENDATION SEE BELOW Normal [facility] Comment on above: Result Comment: ADA RECOMMENDED LIMIT 4.0 - 6.0 ADA THERAPEUTIC TARGET < 7.0 ACTION SUGGESTED > 7.0 Performed By: #### A 1C #### [facility] [address] [address] [address] Ray Fabian Glucose [Mass/Vol] 120 mg/dL Normal [facility] Comment on above: Performed By: #### A 1C #### [facility] [address] [place] [address] Dr. Ray Fabian HbA1c (Bld) [Mass fraction] 5.8 % Normal 4.5-6.2 [facility] Comment on above: Performed By: #### A 1C #### [facility] [address] [place] [address] Dr. Ray Fabian IRONon 11-20-2021 Iron [Mass/Vol] 96.0 ug/dL Normal 50.0-170.0 [facility] Comment on above: Performed By: #### I TASHIA #### [facility] [address] [place] [address] Dr. Ray Fabian LIPID PROFILEon 11-20-2021 CHOL-HDL RATIO NORM SEE BELOW Normal [facility] Comment on above: Result Comment: 3.3 - 4.4 LOW RISK 4.4 - 7.1 AVERAGE RISK 7.1 - 11.0 MODERATE RISK >11.0 HIGH RISK Performed By: #### C BC #### [facility] [address] [place] [address] Dr. Ray Fabian Cholesterol [Mass/Vol] 221 mg/dL Critically high <=200 [facility] Comment on above: Performed By: #### C BC #### [facility] [address] [address] [address] Ray Fabian Cholesterol in HDL [Mass/Vol] 88 mg/dL Critically high 40-60 [facility] Comment on above: Performed By: #### C BC #### [facility] [address] [address] [address] Ray Fabian Cholesterol in LDL [Mass/Vol] 116.4 mg/dL Normal [facility] Comment on above: Performed By: #### C BC #### [facility] [address] [address] [address] Ray Fabian Cholesterol.total/ Cholesterol in HDL [Mass ratio] 2.5 {ratio} Normal [facility] Comment on above: Performed By: #### C BC #### [facility] [address] [address] [address] Ray Fabian HDL NORMAL > or = 60 mg/dl - LO W CARDIOVASCULAR RISK <40 mg/dl - HIGH CARDIOVASCULAR RISK Normal [facility] Comment on above: Performed By: #### C BC #### [facility] [address] [address] [address] Ray Fabian LDL CALC NORMAL SEE BELOW Normal [facility] Comment on above: Result Comment: <100 mg/dl OPTIMAL 100 - 129 mg/dl NEAR OR ABOVE OPTIMAL 130 - 159 mg/dl BORDERLINE HIGH 160 - 189 mg/dl HIGH >190 mg/dl VERY HIGH Performed By: #### C BC #### [facility] [address] [address] [address] Ray Fabian Triglyceride [Mass/Vol] 83 mg/dL Normal <=150 [facility] Comment on above: Performed By: #### C BC #### [facility] [address] [address] [address] Ray Fabian VLDL CALC 16.6 mg/dL Normal [facility] Comment on above: Performed By: #### C BC #### [facility] [address] [address] [address] Ray Fabian PROF 14(COMP METB)on 022 Albumin [Mass/Vol] 4.3 g/dL Normal 3.4-5.0 [facility] Comment on above: Performed By: #### C BC #### [facility] [address] [place] [address] Dr. Ray Fabian Albumin/Globulin [Mass ratio] 1.4 {ratio} Normal [facility] Comment on above: Performed By: #### C BC #### [facility] [address] [place] [address] Dr. Ray Fabian ALP [Catalytic activity/Vol] 50 U/L Normal 46-116 [facility] Comment on above: Performed By: #### C BC #### [facility] [address] [place] [address] Dr. Ray Fabian ALT [Catalytic activity/Vol] 24 U/L Normal 14-59 [facility] Comment on above: Performed By: #### C BC #### [facility] [address] [place] [address] Dr. Ray Fabian Anion gap [Moles/Vol] 12.0 mmol/L Normal [facility] Comment on above: Performed By: #### C BC #### [facility] [address] [place] [address] Dr. Ray Fabian AST [Catalytic activity/Vol] 20 U/L Normal 15-37 [facility] Comment on above: Performed By: #### C BC #### [facility] [address] [place] [address] Dr. Ray Fabian Bilirubin [Mass/Vol] 0.6 mg/dL Normal 0.2-1.0 [facility] Comment on above: Performed By: #### C BC #### [facility] [address] [place] [address] Dr. Ray Fabian Calcium [Mass/Vol] 9.3 mg/dL Normal 8.5-10.1 [facility] Comment on above: Performed By: #### C BC #### [facility] [address] [place] [address] Dr. Ray Fabian Chloride [Moles/Vol] 103 mmol/L Normal 98-107 [facility] Comment on above: Performed By: #### C BC #### [facility] [address] [place] [address] Dr. Ray Fabian CO2 [Moles/Vol] 30.1 mmol/L Normal 21.0-32.0 [facility] Comment on above: Performed By: #### C BC #### [facility] [address] [place] [address] Dr. Ray Fabian Creatinine [Mass/Vol] 0.76 mg/dL Normal 0.55-1.02 [facility] Comment on above: Performed By: #### C BC #### [facility] [address] [place] [address] Dr. Ray Fabian EGFR-AF LIBERIAN >60 Normal >=60 [facility] Comment on above: Performed By: #### C BC #### [facility] [address] [place] [address] Dr. Ray Fabian EGFR-NON AF LIBERIAN >60 Normal >=60 [facility] Comment on above: Performed By: #### C BC #### [facility] [address] [place] [address] Dr. Ray Fabain Globulin (S) [Mass/Vol] 3.0 g/dL Normal [facility] Comment on above: Performed By: #### C BC #### [facility] [address] [place] [address] Dr. Ray Fabian Glucose [Mass/Vol] 101 mg/dL Normal 74-106 [facility] Comment on above: Performed By: #### C BC #### [facility] [address] [place] [address] Dr. Ray Fabian Potassium [Moles/Vol] 4.1 mmol/L Normal 3.5-5.1 [facility] Comment on above: Performed By: #### C BC #### [facility] [address] [place] [address] Dr. Ray Fabian Protein [Mass/Vol] 7.3 g/dL Normal 6.4-8.2 [facility] Comment on above: Performed By: #### C BC #### [facility] [address] [place] [address] Dr. Ray Fabian Sodium [Moles/Vol] 141 mmol/L Normal 136-145 [facility] Comment on above: Performed By: #### C BC #### [facility] [address] [place] [address] Dr. Ray Fabian Urea nitrogen [Mass/Vol] 16.0 mg/dL Normal 7.0-18.0 [facility] Comment on above: Performed By: #### C BC #### [facility] [address] [place] [address] Dr. Ray Fabian Urea nitrogen/Creatinin e [Mass ratio] 21.1 mg/mg Normal [facility] Comment on above: Performed By: #### C BC #### [facility] [address] [place] [address] Dr. Ray Fabian TSHon 11-20-2021 TSH 3.003 uIU/mL Normal 0.358-3.740 [facility] Comment on above: Performed By: #### C BC #### [facility] [address] [place] [address] Dr. Ray Fabian GI PANEL (PCR)on 09-26-2021 Adenovirus F 40/41 Not detected Normal NOT DETECTED [facility] Comment on above: Performed By: #### G IPANEL #### [facility] [address] [place] [address] Dr. Ray Fabian Astrovirus Not detected Normal NOT DETECTED [facility] Comment on above: Performed By: #### G IPANEL #### [facility] [address] [place] [address] Dr. Ray Fabian CNaren Diff toxin A/B Not detected Normal NOT DETECTED [facility] Comment on above: Performed By: #### G IPANEL #### [facility] [address] [place] [address] Dr. Ray Fabian Campylobacter Not detected Normal NOT DETECTED [facility] Comment on above: Performed By: #### G IPANEL #### [facility] [address] [place] [address] Dr. Ray Fabian Cryptosporidium Not detected Normal NOT DETECTED [facility] Comment on above: Performed By: #### G IPANEL #### [facility] [address] [place] [address] Dr. Ray Fabian Cyclos. Cayetanensis Not detected Normal NOT DETECTED [facility] Comment on above: Performed By: #### G IPANEL #### [facility] [address] [place] [address] Dr. Ray Fabian E. Coli O157 Not Applicable Normal Not Applicable [facility] Comment on above: Performed By: #### G IPANEL #### [facility] [address] [place] [address] Dr. Ray Fabian E. histolytica Not detected Normal NOT DETECTED [facility] Comment on above: Performed By: #### G IPANEL #### [facility] [address] [place] [address] Dr. Ray Fabian EAEC Not detected Normal NOT DETECTED [facility] Comment on above: Performed By: #### G IPANEL #### [facility] [address] [place] [address] Dr. Ray Fabian EIEC Not detected Normal NOT DETECTED [facility] Comment on above: Performed By: #### G IPANEL #### [facility] [address] [place] [address] Dr. Ray Fabian EPEC Not detected Normal NOT DETECTED [facility] Comment on above: Performed By: #### G IPANEL #### [facility] [address] [place] [address] Dr. Ray Fabian ETEC Not detected Normal NOT DETECTED [facility] Comment on above: Performed By: #### G IPANEL #### [facility] [address] [place] [address] Dr. Ray Fabian G. Lamblia Not detected Normal NOT DETECTED [facility] Comment on above: Performed By: #### G IPANEL #### [facility] [address] [place] [address] Dr. Ray BERNARDL CONTROLS PASSED Normal [facility] Comment on above: Performed By: #### G IPANEL #### [facility] [address] [place] [address] Dr. Ray HUNTNL CARMEL HEADER GI PANEL BACTERIA Normal T [facility] Comment on above: Performed By: #### G IPANEL #### [facility] [address] [address] [address] Ray DORADO ECOLI GI PANEL DIARRHEAGEN IC E.COLI / SHIGELLA Normal [facility] Comment on above: Performed By: #### G IPANEL #### [facility] [address] [address] [address] Ray DORADO INFO SEE BELOW Normal [facility] Comment on above: Result Comment: EAEC - Enteroaggregative E. Coli EPEC- Enteropathogenic E. Coli ETEC- Enterotoxigenic E. Coli lt/st STEC- Shigella-like toxin-producing E. Coli stx1/stx2 EIEC- Shigella/Enteroinvasive E. Coli Performed By: #### G IPANEL #### [facility] [address] [address] [address] Ray DORADO PARASITES GI PANEL PARASITES Normal [facility] Comment on above: Performed By: #### G IPANEL #### [facility] [address] [address] [address] Ray DORADO VIRUS GI PANEL VIRUSES Normal [facility] Comment on above: Performed By: #### G IPANEL #### [facility] [address] [address] [address] Ray Fabian Norovirus GI/GII Not detected Normal NOT DETECTED [facility] Comment on above: Performed By: #### G IPANEL #### [facility] [address] [address] [address] Ray Fabian P. Shigelloides Not detected Normal NOT DETECTED [facility] Comment on above: Performed By: #### G IPANEL #### [facility] [address] [address] [address] Ray Fabian Rotavirus A Not detected Normal NOT DETECTED [facility] Comment on above: Performed By: #### G IPANEL #### [facility] [address] [address] [address] Ray Fabian Salmonella Not detected Normal NOT DETECTED [facility] Comment on above: Performed By: #### G IPANEL #### [facility] [address] [place] [address] Dr. Ray Fabian Sapovirus Not detected Normal NOT DETECTED [facility] Comment on above: Performed By: #### G IPANEL #### [facility] [address] [place] [address] Dr. Ray Fabian STEC Not detected Normal NOT DETECTED [facility] Comment on above: Performed By: #### G IPANEL #### [facility] [address] [place] [address] Dr. Ray Fabian Vibrio Not detected Normal NOT DETECTED [facility] Comment on above: Performed By: #### G IPANEL #### [facility] [address] [place] [address] Dr. Ray Fabian Vibrio Cholera Not detected Normal NOT DETECTED [facility] Comment on above: Performed By: #### G IPANEL #### [facility] [address] [place] [address] Dr. Ray Fabian Y. Enterocolitica Not detected Normal NOT DETECTED [facility] Comment on above: Performed By: #### G IPANEL #### [facility] [address] [place] [address] Dr. Ray Fabian CULTURE URINEon 09-01-2021 CULTURE URINE Culture Observations : No growth Normal [facility] Comment on above: Performed By: #### C BC #### [facility] [address] [place] [address] Dr. Ray Fabian UA RANDOM W/MICROSCOPICon BACTERIA NONE SEEN Normal NONE SEEN [facility] Comment on above: Performed By: #### U AMIC #### [facility] [address] [place] [address] Dr. Ray Fabian Bilirubin Ql (U) Negative Normal NEGATIVE [facility] Comment on above: Performed By: #### U AMIC #### [facility] [address] [place] [address] Dr. Ray Fabian CAST NONE SEEN Normal NONE SEEN [facility] Comment on above: Performed By: #### U AMIC #### [facility] [address] [address] [address] Ray Fabian Clarity (U) CLEAR Normal CLEAR [facility] Comment on above: Performed By: #### U AMIC #### [facility] [address] [place] [address] Dr. Ray Fabian Color (U) YELLOW Normal YELLOW [facility] Comment on above: Performed By: #### U AMIC #### [facility] [address] [address] [address] Ray Fabian Crystals LM Nom (Urine sed) NONE SEEN Normal NONE SEEN [facility] Comment on above: Performed By: #### U AMIC #### [facility] [address] [place] [address] Dr. Ray Fabian Epithelial cells LM Ql (Urine sed) NONE SEEN Normal NONE SEEN /RARE [facility] Comment on above: Performed By: #### U AMIC #### [facility] [address] [place] [address] Dr. Ray Fabian Glucose Ql (U) Negative Normal NEGATIVE [facility] Comment on above: Performed By: #### U AMIC #### [facility] [address] [place] [address] Dr. Ray Fabian Hemoglobin Ql (U) Negative Normal NEGATIVE [facility] Comment on above: Performed By: #### U AMIC #### [facility] [address] [place] [address] Dr. Ray Fabian Ketones Ql (U) Negative Normal NEGATIVE [facility] Comment on above: Performed By: #### U AMIC #### [facility] [address] [place] [address] Dr. Ray Fabian LEUKOCYTES Negative Normal NEGATIVE [facility] Comment on above: Performed By: #### U AMIC #### [facility] [address] [place] [address] Dr. Ray Fabian MUCOUS NONE SEEN Normal NONE SEEN [facility] Comment on above: Performed By: #### U AMIC #### [facility] [address] [place] [address] Dr. Ray Fabian Nitrite Ql (U) Negative Normal NEGATIVE [facility] Comment on above: Performed By: #### U AMIC #### [facility] [address] [place] [address] Dr. Ray Fabian pH (U) 6.0 [pH] Normal 5-9 [facility] Comment on above: Performed By: #### U AMIC #### [facility] [address] [place] [address] Dr. Ray Fabian RBC NONE SEEN Abnormal 0-2 [facility] Comment on above: Performed By: #### U AMIC #### [facility] [address] [place] [address] Dr. Ray Fabian SPEC GRAVITY 1.025 Normal 1.005-<=1.025 [facility] Comment on above: Performed By: #### U AMIC #### [facility] [address] [place] [address] Dr. Ray Fabian UA PROTEIN Negative Normal NEGATIVE/ TRACE [facility] Comment on above: Performed By: #### U AMIC #### [facility] [address] [place] [address] Dr. Ray Fabian Urobilinogen Qn (U) 0.2 {Praveena'U}/dL Normal 0.2 - 1.0 [facility] Comment on above: Performed By: #### U AMIC #### [facility] [address] [place] [address] Dr. Ray Fabian WBC NONE SEEN Normal NONE SEEN [facility] Comment on above: Performed By: #### U AMIC #### [facility] [address] [place] [address] Dr. Ray Fabian CULTURE URINEon 2021 CULTURE URINE Isolate 1 Pseudomonas aeruginosa 30,000 cfu/mL of ORGANISM 1 Pseudomonas aeruginosa ANTIBIOTIC M.I.C RX STATUS Ceftazidime 4 S F Imipenem 1 S F Amikacin 4 S F Gentamicin <=1 S F Tobramycin <=1 S F Ciprofloxacin <=0.25 S F Levofloxacin 0.25 S F Normal [facility] Comment on above: Performed By: #### C BC #### [facility] [address] [address] [address] Ray Fabian UA RANDOM W/MICROSCOPICon BACTERIA SMALL Abnormal NONE SEEN [facility] Comment on above: Performed By: #### U AMIC #### [facility] [address] [address] [address] Ray Fabian Bilirubin Ql (U) Negative Normal NEGATIVE [facility] Comment on above: Performed By: #### U AMIC #### [facility] [address] [address] [address] Ray Fabian CAST NONE SEEN Normal NONE SEEN [facility] Comment on above: Performed By: #### U AMIC #### [facility] [address] [address] [address] Ray Fabian Clarity (U) CLOUDY Abnormal CLEAR [facility] Comment on above: Performed By: #### U AMIC #### [facility] [address] [place] [address] Dr. Ray Fabian Color (U) BROWN Abnormal YELLOW [facility] Comment on above: Performed By: #### U AMIC #### [facility] [address] [address] [address] Ray Fabian Crystals LM Nom (Urine sed) NONE SEEN Normal NONE SEEN [facility] Comment on above: Performed By: #### U AMIC #### [facility] [address] [place] [address] Dr. Ray Fabian Epithelial cells LM Ql (Urine sed) FEW Abnormal NONE SEEN /RARE [facility] Comment on above: Performed By: #### U AMIC #### [facility] [address] [address] [address] Ray Fabian Glucose Ql (U) Negative Normal NEGATIVE [facility] Comment on above: Performed By: #### U AMIC #### [facility] [address] [place] [address] Dr. Ray Fabian Hemoglobin Ql (U) LARGE Abnormal NEGATIVE [facility] Comment on above: Performed By: #### U AMIC #### [facility] [address] [place] [address] Dr. Ray Fabian Ketones Ql (U) TRACE Abnormal NEGATIVE [facility] Comment on above: Performed By: #### U AMIC #### [facility] [address] [place] [address] Dr. Ray Fabian LEUKOCYTES TRACE Abnormal NEGATIVE [facility] Comment on above: Performed By: #### U AMIC #### [facility] [address] [place] [address] Dr. Ray Fabian MUCOUS SMALL Abnormal NONE SEEN [facility] Comment on above: Performed By: #### U AMIC #### [facility] [address] [place] [address] Dr. Ray Fabian Nitrite Ql (U) Negative Normal NEGATIVE [facility] Comment on above: Performed By: #### U AMIC #### [facility] [address] [place] [address] Dr. Ray Fabian pH (U) 5.0 [pH] Normal 5-9 [facility] Comment on above: Performed By: #### U AMIC #### [facility] [address] [place] [address] Dr. Ray Fabian RBC (U) [#/Vol] /uL Abnormal 0-2 [facility] Comment on above: Performed By: #### U AMIC #### [facility] [address] [place] [address] Dr. Ray Fabian SPEC GRAVITY >=1.030 Abnormal 1.005-<=1.025 [facility] Comment on above: Performed By: #### U AMIC #### [facility] [address] [place] [address] Dr. Ray Fabian UA PROTEIN 100 mg/dl Abnormal NEGATIVE/ TRACE [facility] Comment on above: Performed By: #### U AMIC #### [facility] [address] [place] [address] Dr. Ray Fabian Urobilinogen Qn (U) 1.0 {Praveena'U}/dL Normal 0.2 - 1.0 [facility] Comment on above: Performed By: #### U AMIC #### [facility] [address] [address] [address] Ray Fabian WBC 2-5 Abnormal NONE SEEN [facility] Comment on above: Performed By: #### U AMIC #### [facility] [address] [address] [address] Ray Fabian FREE T3on 06-26-2021 FREE T3 2.31 pg/mlL Critically low 2.77-5.27 [facility] Comment on above: Performed By: #### T SH, FT3 #### [facility] [address] [place] [address] Dr. Ray Fabian FREE T4on 06-26-2021 Free T4 [Mass/Vol] 0.88 ng/dL Normal 0.78-2.19 [facility] Comment on above: Performed By: #### F T4 #### [facility] [address] [place] [address] Dr. Ray Fabian TSHon 06-26-2021 TSH 3.608 uIU/mL Normal 0.470-4.680 [facility] Comment on above: Performed By: #### T SH, FT3 #### [facility] [address] [address] [address] Ray Fabian TSH RANGE SEE BELOW Normal [facility] Comment on above: Result Comment: <0.3 4 UIU/ml HYPERTHYROID 0.34-5.60 UIU/ml EUTHYROID >5.60 UIU/ml HYPOTHYROID Performed By: #### T SH, FT3 #### [facility] [address] [place] [address] Dr. Ray Fabian Gynecology Office/Clinic Not jennifer [...] February 04, 2018 10:22 EST Encounter info: [id number], [facility], 02/04/2018 - [1] Colonoscopy 12/04/2015. [2] [...] Mckenzie aquino PA-C 02/04/18 11:50 EST Normal [facility] US Transvaginalon 02-04-2018 US Transvaginal EXAM(S) PREFORMED:Transvaginal [...] anything being visualized abdominally. Final Signed by: Nate DO, Elisha AnnSigned (Electronic Signature): 02/04/2018 1:31 pmTranscribed by: [email or web address] DT/TM: 02/04/2018 10:56(If Report Is Signed, Electronically Signed in Other Vendor System) Normal [facility] Ambulatory Patient Education on 01-31-2018 Ambulatory Patient Education Patient Education MaterialsName: Maira Douglass Current Date: 01/31/2018 10:55:40 [place] 1950 following sheet(s) are the Patient Education Leaflets [facility]: Breast Self-AwarenessWhat is breast self-awareness?Breast self-awareness [...] breast self-examination (BSE). These experts include the [employer], the U.S. Preventive Services Task Force, and the [place] [employer]nec[employer]. Some experts [...] benign. This means they are not cancer.? [id number] [employer]. [address] [place] [address]. All rights reserved. This information is not intended as a substitute for professional medical care. Always follow your healthcare professional's instructions. Normal [facility] Obstetrics Office/Clinic Not jennifer 01-29-2018 Obstetrics Office/Clinic [...] (1st grade to college) Mammogram 04/09/2017 @ [facility]-Benign. Bone Density 11/28/2016@ [facility]-Normal. She is taking vitamin D 1000IU daily and gets calcium through her diet. Colonoscopy 12/04/2015. PCP Dr. Sin in [place] does yearly check and does routine labs.Review [...] Mckenzie aquino PA-C 01/29/18 10:41 EST Normal [facility] Ambulatory Patient Education on 01-27-2018 Ambulatory Patient Education Patient Education MaterialsName: Maria Douglass Current Date: 01/27/2018 11:40:45 [place] 1950 following sheet(s) are the Patient [facility] Leaflets [facility]: Breast Self-AwarenessWhat is breast self-awareness?Breast self-awareness [...] breast self-examination (BSE). These experts include the [employer], the U.S. Preventive Services Task Force, and the [place] [employer] Obstetricians [employer] Gynecologists. Some experts [...] benign. This means they are not cancer.? [id number] [employer]. [address] [place] [address]. All rights reserved. This information is not intended as a substitute for professional medical care. Always follow your healthcare professional's instructions. Normal [facility] Vital Signs Date Time Vital Sign Value Performing Clinician Jonny rooney 02-17-2024 10:05-0500 Body height 162.6 cm [facility] 1 Work Phone: [facility] 02-17-2024 10:05-0500 Body mass index (BMI) [Ratio] 21.19 kg/m2 [facility] 1 Work Phone: [facility] 02-17-2024 10:05-0500 Body temperature 98.49 [degF] [facility] 1 Work Phone: [facility] 02-17-2024 10:05-0500 Body weight 56 kg [facility] 1 Work Phone: [facility] 02-17-2024 10:05-0500 Diastolic blood pressure 82 mm[Hg] [facility] 1 Work Phone: [facility] 02-17-2024 10:05-0500 Heart rate 71 /min [facility] 1 Work Phone: [facility] 02-17-2024 10:05-0500 Respiratory rate 14 /min [facility] 1 Work Phone: [facility] 02-17-2024 10:05-0500 SaO2% (BldA) [Mass fraction] 99 % [facility] 1 Work Phone: [facility] 02-17-2024 10:05-0500 Systolic blood pressure 165 mm[Hg] [facility] 1 Work Phone: [facility] Encounters Encounter Date Encounter Type Care Provider Facility Start: 03-04-2024 End: 03-04-2024 ambulatory SUSYSANDRA ALICEA Facility:[facility] Start: 02-26-2024 End: 02-26-2024 ambulatory YANELI GRAVES Facility:[facility] Start: 02-17-2024 End: 02-17-2024 Patient encounter procedure [facility] Work Phone: Ophthalmology Comment on above: Combined forms of ag e-related cataract of right eye; Combined forms of age-related cataract of left eye Start: 02-17-2024 End: 02-17-2024 Admission to establishment [facility] [place] 1 Work Phone: Pre Anesthesia Start: 02-17-2024 End: 02-17-2024 ambulatory SUSY ALICEA Facility:[facility] Start: 02-17-2024 End: 02-17-2024 Anesthesia consultation [facility] [place] 1 Work Phone: Pre Anesthesia Comment on above: Pre-op evaluation (P rimary Dx) Start: 02-17-2024 Encounter for other preprocedural examination SUSYSANDRA BRADLEYMER [facility] Start: 02-17-2024 End: 02-17-2024 Preprocedural examination done [facility] [place] 1 Work Phone: [facility] Work Phone: Start: 01-07-2024 End: 01-07-2024 ambulatory YANELI GRAVES Facility:[facility] Start: 01-07-2024 End: 01-07-2024 Patient encounter procedure [...] End: 02-05-2018 Patient encounter procedure MCKENZIE GARCIA Facility:[facility] Start: 02-04-2018 End: 02-05-2018 Patient encounter procedure ELISHA JOSUE Facility:[facility] Start: 01-29-2018 End: 01-30-2018 Patient encounter procedure MCKENZIE GARCIA Facility:[facility] Procedures Date Procedure Procedure Detail Performing Clinician Start: 02-17-2024 IOL BIOMETRY W/ IOL CALC OU (BOTH EYES) Yaneli Graves MD Work Phone: Start: 02-17-2024 [facility] ONLY - DIAGNOS TIC OU (BOTH EYES) Yaneli Graves MD Work Phone: Plan of Treatment Date Care Activity Detail Author Start: 2025 RSV Vaccine (1 - 1-dose 75+ series) RSV Vaccine (1 - 1-dose 75+ series) [facility] Start: 01-20-2025 End: 06-29-2025 CORNEAL TOPOGRAPHY ATLAS OU (BOTH EYES) CORNEAL TOPOGRAPHY ATLAS OU (BOTH EYES) OPHT Imaging Routine Combined forms of age-related cataract of right eye Combined forms of age-related cataract of left eye Expected: 01/20/2025, Expires: 06/29/2025 [facility] Comment on above: Expected: 01/20/2025, Expires: Start: 01-06-2025 End: 06-30-2025 [facility] ONLY - DIAGNOSTIC OU (BOTH EYES) [facility] ONLY - DIAGNOSTIC OU (BOTH EYES) OPHT Imaging Routine Combined forms of age-related cataract of right eye Combined forms of age-related cataract of left eye Expected: 01/06/2025, Expires: 06/30/2025 [facility] [facility] Comment on above: Expected: 01/06/2025, Expires: Start: 01-06-2025 End: 06-30-2025 IOL BIOMETRY W/ IOL CALC OU (BOTH EYES) IOL BIOMETRY W/ IOL CALC OU (BOTH EYES) OPHT Imaging Routine Combined forms of age-related cataract of right eye Combined forms of age-related cataract of left eye Expected: 01/06/2025, Expires: 06/30/2025 [facility] Comment on above: Expected: 01/06/2025, Expires: Start: 12-31-2024 End: 06-29-2025 OCT MACULA CIRRUS OU (BOTH EYES) OCT MACULA CIRRUS OU (BOTH EYES) OPHT Imaging Routine Combined forms of age-related cataract of right eye Combined forms of age-related cataract of left eye Expected: 12/31/2024, Expires: 06/29/2025 [facility] Work Phone: Comment on above: Expected: 12/31/2024, Expires: Start: 03-04-2024 End: 03-04-2024 Admission to same day surgery center 03/04/2024 9:25 AM EST - 03/04/2024 10:00 AM EST Surgery Ambulatory Surgery [address] [place] [address] Yaneli Graves MD [address] [facility] [place] [address] PHACOEMULSIFICATION CATARACT IMPLANT INTRAOCULAR LENS W/O ENDOSCOPIC [...] AM EST Hospital Encounter Ambulatory Surgery [address] [place] [address] Yaneli Graves MD [address] [place] [address] Combined forms of age-related cataract of right eye [H25.811] Ambulatory Surgery Comment on above: Combined forms of age-related cataract o f right eye [H25.811] Start: 03-04-2024 End: 03-04-2024 Xcapsl ctrc rmvl insj io lens prosth w/o ecp PHACOEMULSIFICATION CATARACT IMPLANT INTRAOCULAR LENS W/O ENDOSCOPIC CYCLOPHOTOCOAGULATION Combined forms of age-related cataract of right eye 03/04/2024 9:25 AM EST IVAN CRISTINA Start: 02-26-2024 End: 02-26-2024 Admission to same day surgery center 02/26/2024 12:35 PM EST - 02/26/2024 1:10 PM EST Surgery Ambulatory Surgery [address] [place] [address] Yaneli Graves MD [address] [facility] [address] [place] [address] PHACOEMULSIFICATION CATARACT IMPLANT INTRAOCULAR LENS W/O ENDOSCOPIC CYCLOPHOTOCOAGULATION Ambulatory Surgery Comment on above: PHACOEMULSIFICATION CATARACT IMPLANT INT RAOCULAR LENS W/O ENDOSCOPIC CYCLOPHOTOCOAGULATION Start: 02-26-2024 End: 02-26-2024 Oph bmtry prtl coher intrfrmtry io lens pwr [place] OPHTHALMIC BIOMETRY BY PARTIAL COHERENCE INTERFEROMETRY W/INTRAOCULAR LENS POWER CALCULATION Combined forms of age-related cataract of left eye 02/26/2024 12:35 PM EST IVAN CRISTINA Start: 02-26-2024 Subsequent hospital visit by physician 02/26/2024 12:35 PM EST Hospital Encounter Ambulatory Surgery [address] [place] [address] Yaneli Graves MD [address] [facility] [place] [address] Combined forms of age-related cataract of left eye [H25.812] Ambulatory Surgery Comment on above: Combined forms of age-related cataract o f left eye [H25.812] Start: 02-26-2024 End: 02-26-2024 Xcapsl ctrc rmvl insj io lens prosth w/o ecp PHACOEMULSIFICATION CATARACT IMPLANT INTRAOCULAR LENS W/O ENDOSCOPIC CYCLOPHOTOCOAGULATION Combined forms of age-related cataract of left eye 02/26/2024 12:35 PM EST IVAN CRISTINA Start: 02-24-2024 End: 02-24-2024 Admission to same day surgery center 02/24/2024 11:05 AM EST - 02/24/2024 11:40 AM EST Surgery Ambulatory Surgery [address] [facility] [place] [address] Yaneli Graves MD [address] [facility] [place] [address] PHACOEMULSIFICATION CATARACT IMPLANT INTRAOCULAR LENS W/O ENDOSCOPIC CYCLOPHOTOCOAGULATION Ambulatory Surgery Comment on above: PHACOEMULSIFICATION CATARACT IMPLANT INT RAOCULAR LENS W/O ENDOSCOPIC CYCLOPHOTOCOAGULATION Start: 02-24-2024 End: 02-24-2024 Oph bmtry prtl coher intrfrmtry io lens pwr [place] OPHTHALMIC BIOMETRY BY PARTIAL COHERENCE INTERFEROMETRY W/INTRAOCULAR LENS POWER CALCULATION Combined forms of age-related cataract of left eye 02/24/2024 11:05 AM EST IVAN CRISTINA Start: 02-24-2024 Subsequent hospital visit by physician 02/24/2024 11:05 AM EST Hospital Encounter Ambulatory Surgery [address] [place] [address] Yaneli Graves MD [address] [facility] [place] [address] Combined forms of age-related cataract of left [...] AM EST Office Visit OPHT Ophthalmology [address] [facility] [place] [address] CATARACT SURGERY LEFT THEN RIGHT -STAR / COMANAGED Ophthalmology Comment on above: CATARACT SURGERY LEFT THEN RIGHT -STAR / COMANAGED Start: 02-17-2024 End: 02-17-2024 Admission to same day surgery center 02/17/2024 10:20 AM EST PAT Pre Anesthesia [address] [place] [address] 1, Pacc [place] [address] [place] [address] CATARACT SURGERY LEFT THEN RIGHT -STAR / COMANAGED Pre Anesthesia Comment on above: CATARACT SURGERY LEFT THEN RIGHT -STAR / COMANAGED Start: 01-07-2024 End: 06-29-2025 CORNEAL TOPOGRAPHY PENTACAM OU (BOTH EYES) CORNEAL TOPOGRAPHY PENTACAM OU (BOTH EYES) OPHT Imaging Routine Combined forms of age-related cataract of right eye Combined forms of age-related cataract of left eye Expected: 01/07/2024, Expires: 06/29/2025 [facility] Comment on above: Expected: 01/07/2024, Expires: Start: 11-24-2023 Covid-19 Vaccine () Covid-19 Vaccine () [facility] Start: 11-24-2023 Influenza vaccination Influenza Vaccine (#1) [facility] Start: 03-25-2023 Advance Directive Discussion Advance Directive Discussion [facility] Start: 01-09-2018 Pneumococcal Vaccine: 65+ (2 of 2 - PPSV23 or PCV20) Pneumococcal Vaccine: 65+ (2 of 2 - PPSV23 or PCV20) [facility] Start: 08-26-2015 Screening for osteoporosis Bone Density Screening [facility] Start: 08-26-1995 Diabetes Screening Diabetes Screening [facility] Start: 08-26-1995 Lipid panel Lipid Screening [facility] Start: 08-26-1995 Screening for malignant neoplasm of colon [facility] Start: 1990 Screening for malignant neoplasm of breast Mammogram Screening [facility] Start: 1969 Urine microalbumin profile DTaP,Tdap,Td Vaccine (1 - Tdap) [facility] Start: 1968 Anxiety Screening Anxiety Screening [facility] Start: 1968 Depression Screening Depression Screening [facility] Start: 1968 Hepatitis C screening Hepatitis C Screening [facility] CORNEAL TOPOGRAPHY A TLAS OU (BOTH EYES) CORNEAL TOPOGRAPHY ATLAS OU (BOTH EYES) OPHT Imaging Routine Combined forms of age-related cataract of right eye Combined forms of age-related cataract of left eye 02/17/2024 11:30 AM EST [facility] Work Phone: Immunizations Immunization Date Immunization Notes Care Provider Suresh martinez 12-18-2019 influenza virus vacc ine, unspecified formulation Yaneli Graves MD Work Phone: [facility] Payers Date Payer Category Payer Medicare AETNA MEDICARE A ETNA MEDICARE PPO [id number] 2023-Present [phone] [address] [place] [address] PPO [id number] 2017 Private Health Insurance 1959 Medicare [id number] 1959 Medicare [id number] 1950 Unknown [id number] 96 1950 Unknown [id number] 96 1950 Unknown [id number] [id number] 96 1950 Unknown [id number] 93 1950 Unknown [id number] [id number] 93 1950 Unknown [id number] [id number] 93 1950 Unknown [id number] [id number] 93 1950 Unknown [id number] [id number] 93 1950 Unknown [id number] [id number] 93 1950 Unknown [id number] [id number] 93 1950 Unknown [id number] [id number] 93 1950 Unknown [id number] 93 Social History Date Type Detail Facility [facility] consumption unknown [facility] Start: 01-07-2024 End: 02-17-2024 History of Social function [facility] Start: 01-07-2024 End: 02-17-2024 Area Deprivation Index [facility] National Score (1-10 0), lower number is lower risk 67 [facility] Start: 1950 Sex assigned at Not on file [facility] Start: 02-17-2024 Tobacco smoking stat us NHIS Never smoked tobacco [facility] Start: 02-17-2024 Tobacco use and exposure Smoke less tobacco non-user [facility] Start: 02-17-2024 Alcoholic beverage intake Curr ent drinker of alcohol (finding) [facility] Start: 02-17-2024 Alcohol Comment [facility]x [facility] Start: 1950 Sex assigned at Female C [facility] Clinical Notes 01-07-2024 to 02-17-2024 Cody Mims COA - 02/17/2024 11:31 AM Cecy Guido, YANDEL.EMBEDDED SYSTEMS SOFTWARE DEVELOPER - 02/17/2024 10:20 AM Cecy Guido, CONVENTIONS ASSISTANT.EMBEDDED SYSTEMS SOFTWARE DEVELOPER - 02/17/2024 10:20 AM ESTPatient Instructions Note Date & Type Note Facility 02-17-2024 Note HNO ID: [id number] Author: CODY MIMS COA Service: ? Author Type: Mortgage Processing Manager Type: Progress Notes Filed: 02/17/2024 11:35 Note Text: CONFIRM AIM PLANO LEFT EYE. AIM RIGHT EYE TO BE DETERMINED. TORIC IOL BOTH EYES. OMA Coles [facility] 02-17-2024 Note Date of Procedure 02/17/2024. Mortgage Processing Manager Information OMA Coles . Notes Measurements only - see Procedure Record under Scanned Documents for signed results. ZEISS 02-17-2024 History of Present illness Narrative CONFIRM AIM PLANO LEFT EYE. AIM RIGHT EYE TO BE DETERMINED. TORIC IOL BOTH EYES. OMA Coles documented in this encounter [facility] 02-17-2024 Note Date of Procedure 02/17/2024. Mortgage Processing Manager Information Cody Dawn, COA . Notes Ascan report in paper chart and scanned to patient chart after post op period. A-SCAN RIGHT EYE: 23.12 A-SCAN LEFT EYE: 23.59 ZEISS 02-17-2024 History and physical note HISTORY AND PHYSICAL EXAMINATION SERVICE DATE: 02/17/2024 SERVICE TIME: 10:10 AM PRIMARY CARE PHYSICIAN: Susy Alicea CNP, EMBEDDED SYSTEMS SOFTWARE DEVELOPER REASON FOR VISIT: Maria Douglass is a 73 year old female who is scheduled for at the request of Dr. Yaneli Graves for consultation. My final recommendation will be communicated back to the requesting physician by way of shared medical record or letter. Assessment Patient has the following medical conditions which may affect aylin-operative course: No problem-specific Assessment & Plan notes found for this encounter. [place] Activity Status Index: METS: Walk indoors, such as around the house (1.75 METs) Do light work around the house, such as dusting or washing dishes (2.70 METs) Take care of self; that is eating, dressing, bathing, using the toilet (2.75 METs) Walk a block or two on level ground (2.75 METs) Do moderate work around the house, such as vacuuming, sweeping floors, or carrying in groceries (3.50 METs) Climb a flight of stairs or walk up a hill (5.50 METs) DASI Score: 18.95 Patient denies any chest pain or undue shortness of breath with the above physical activity. STOP-Bang Score: Patient over 50 years old Denies snoring loudly Denies feeling tired, fatigued, or sleepy during the daytime Has not been observed to stop breathing or choking/gasping during sleep Denies having high blood pressure BMI less than or equal to 35 kg/m^2 Does not have a large neck Non-male patient STOP-Bang Score: 1 [id number] Score: Age: <65 Sex: female CHF history: No Hypertension history: No Stroke/TIA/thromboembolism history: No Vascular disease history: No Diabetes history: No [id number] Score: 1 ARISCAT Score: Age: <=50 Preoperative SpO2: >=96% Respiratory infection in the last month: No Preoperative anemia: No Surgical incision: peripheral Duration of surgery: <2 hrs Emergency procedure: No ARISCAT Score: 0 ANESTHESIA FINDINGS: Intubation History: No history of difficult intubation Significant Anesthesia Considerations: none Airway History: No history of difficult airway Airway Exam: General: Normal appearance There is no height or weight on file to calculate BMI. Mallampati Score is CLASS I ULBT: Class I - Lower incisors can bite the upper lip above the raysa line Neck: Normal appearance and function, Distance from hyoid to mentum during neck extension is at least 3 finger breaths Mouth: Normal tongue size and Mouth opening greater than 2 finger breaths Dentition: Intact Airway History: No abnormal airway history Planned Anesthetic: Per anesthesia choice Prepared for surgery: This patient is optimally prepared for surgery. CONSULTS: Patient does not require consults for optimization at this time. The Following Tests/Procedures Have Been Initiated: Labs not indicated per PACC protocol, EKG not indicated per [facility]ACC protocol Planned Anesthetic: Per anesthesia choice Subjective CHIEF COMPLAINT: Visual Changes HPI: 73 year old year old presents today with complaints of difficulty with vision. Found to have cataract on exam. Denies pain. No relieving factors. No past medical history on file. PAST SURGICAL HISTORY Procedure Laterality Date COLONOSCOPY REPAIR ING HERNIA,5+Y/O,REDUCIBL No family history on file. SOCIAL HISTORY: Social History Tobacco Use Smoking status: Never Smokeless tobacco: Never Substance Use Topics Alcohol use: Yes Comment: 1x monthly Drug use: Not Currently Prior to Admission medications as of 02/17/24 1005 Medication Sig Last Dose Taking cycloSPORINE 0.05 % drop Taking Yes ofloxacin (OCUFLOX) 0.3 % ophthalmic solution 1 Drop four times daily. One drop in the OPERATIVE EYE only four times a day starting the day before surgery Taking Yes No medication comments found. ALLERGIES No Known Allergies Covid Immunization Dates Overdue - Covid-19 Vaccine ( season) Never done No completion, postpone, frequency change, or communication history exists for this topic. REVIEW OF SYSTEMS: PAIN ASSESSMENT: General: No weight loss, malaise or fevers. Neuro: No history of TIA's, stroke, DAYCARE TEACHER tumor, impaired sensorium, hemiplegia, paraplegia or quadraplegia. No neurological symptoms or problems. Respiratory: No history of current cough or dyspnea, or pneumonia in the past 6 weeks. No history of respiratory/pulmonary symptoms or problems. 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 : Denies, No LMP recorded. Patient is postmenopausal. Endocrine: No history of diabetes. Has not taken steroids within the past 30 days. No history of endocrinological symptoms or problems. Hematology: No history of bleeding or clotting disorder. Pt is not taking anti-coagulation or platelet medications. No history of hematological symptoms or problems. Oncology: No history of CA metastasis, chemo within 30 days, or radiotherapy within 90 days. Has not lost 10% of body wt in 6 months. No history of oncological symptoms or problems. Psych: No history of psychiatric symptoms or problems. Musculoskeletal: Negative for joint pain or swelling, back pain or muscle pain. Skin: Negative for lesions, rash and itching. Objective PHYSICAL EXAM: VITALS: BP 165/82 Pulse 71 Temp (Src) 98.5 (Oral) Resp 14 Ht 5' 4 (1.63m) Wt 123 lb 7.3 oz (56.0kg) SpO2 99% BMI 21.18 kg/(m^2). General: Alert and oriented Skin: Normal color, no rash, no lesions. HEENT: EOM, pupils equal, round and reactive. Cardiovascular: Normal S1 & S2, no rubs, murmurs or gallops. No JVD. Pulse regular. Lungs: Normal breath sounds, no wheezes or crackles. Abdomen: Soft, non-tender, no rigidity. Extremities: No deformity, no edema or tenderness, no joint swelling or clubbing. Neurological: Normal cognition and motor skills. Pulses: Carotid and radial pulses normal +2. Diagnostic tests reviewed for today's visit: No new labs or tests Instructions Given to Patient: Instructions located in the after visit summary. Patient given verbal and written preop instructions and voices comprehension and compliance. SIGNATURE: Cecy Ramos APRN.CNP PATIENT NAME: Maria Douglass DATE: 02/17/2024 TIME: 10:10 AM [facility] 02-17-2024 History and physical note HISTORY AND PHYSICAL EXAMINATION SERVICE DATE: 02/17/2024 SERVICE TIME: 10:10 AM PRIMARY CARE PHYSICIAN: Susy Alicea CNP, JHONY REASON FOR VISIT: Maria Douglass is a 73 year old female who is scheduled for at the request of Dr. Yaneli Graves for consultation. My final recommendation will be communicated back to the requesting physician by way of shared medical record or letter. Assessment Patient has the following medical conditions which may affect aylin-operative course: No problem-specific Assessment & Plan notes found for this encounter. [place] Activity Status Index: METS: Walk indoors, such as around the house (1.75 METs) Do light work around the house, such as dusting or washing dishes (2.70 METs) Take care of self; that is eating, dressing, bathing, using the toilet (2.75 METs) Walk a block or two on level ground (2.75 METs) Do moderate work around the house, such as vacuuming, sweeping floors, or carrying in groceries (3.50 METs) Climb a flight of stairs or walk up a hill (5.50 METs) DASI Score: 18.95 Patient denies any chest pain or undue shortness of breath with the above physical activity. STOP-Bang Score: Patient over 50 years old Denies snoring loudly Denies feeling tired, fatigued, or sleepy during the daytime Has not been observed to stop breathing or choking/gasping during sleep Denies having high blood pressure BMI less than or equal to 35 kg/m^2 Does not have a large neck Non-male patient STOP-Bang Score: 1 [id number] Score: Age: <65 Sex: female CHF history: No Hypertension history: No Stroke/TIA/thromboembolism history: No Vascular disease history: No Diabetes history: No [id number] Score: 1 ARISCAT Score: Age: <=50 Preoperative SpO2: >=96% Respiratory infection in the last month: No Preoperative anemia: No Surgical incision: peripheral Duration of surgery: <2 hrs Emergency procedure: No ARISCAT Score: 0 ANESTHESIA FINDINGS: Intubation History: No history of difficult intubation Significant Anesthesia Considerations: none Airway History: No history of difficult airway Airway Exam: General: Normal appearance There is no height or weight on file to calculate BMI. Mallampati Score is CLASS I ULBT: Class I - Lower incisors can bite the upper lip above the raysa line Neck: Normal appearance and function, Distance from hyoid to mentum during neck extension is at least 3 finger breaths Mouth: Normal tongue size and Mouth opening greater than 2 finger breaths Dentition: Intact Airway History: No abnormal airway history Planned Anesthetic: Per anesthesia choice Prepared for surgery: This patient is optimally prepared for surgery. CONSULTS: Patient does not require consults for optimization at this time. The Following Tests/Procedures Have Been Initiated: Labs not indicated per PACC protocol, EKG not indicated per [facility] protocol Planned Anesthetic: Per anesthesia choice Subjective CHIEF COMPLAINT: Visual Changes HPI: 73 year old year old presents today with complaints of difficulty with vision. Found to have cataract on exam. Denies pain. No relieving factors. No past medical history on file. PAST SURGICAL HISTORY Procedure Laterality Date COLONOSCOPY REPAIR ING HERNIA,5+Y/O,REDUCIBL No family history on file. SOCIAL HISTORY: Social History Tobacco Use Smoking status: Never Smokeless tobacco: Never Substance Use Topics Alcohol use: Yes Comment: 1x monthly Drug use: Not Currently Prior to Admission medications as of 02/17/24 1005 Medication Sig Last Dose Taking cycloSPORINE 0.05 % drop Taking Yes ofloxacin (OCUFLOX) 0.3 % ophthalmic solution 1 Drop four times daily. One drop in the OPERATIVE EYE only four times a day starting the day before surgery Taking Yes No medication comments found. ALLERGIES No Known Allergies Covid Immunization Dates Overdue - Covid-19 Vaccine ( season) Never done No completion, postpone, frequency change, or communication history exists for this topic. REVIEW OF SYSTEMS: PAIN ASSESSMENT: General: No weight loss, malaise or fevers. Neuro: No history of TIA's, stroke, DAYCARE TEACHER tumor, impaired sensorium, hemiplegia, paraplegia or quadraplegia. No neurological symptoms or problems. Respiratory: No history of current cough or dyspnea, or pneumonia in the past 6 weeks. No history of respiratory/pulmonary symptoms or problems. 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 : Denies, No LMP recorded. Patient is postmenopausal. Endocrine: No history of diabetes. Has not taken steroids within the past 30 days. No history of endocrinological symptoms or problems. Hematology: No history of bleeding or clotting disorder. Pt is not taking anti-coagulation or platelet medications. No history of hematological symptoms or problems. Oncology: No history of CA metastasis, chemo within 30 days, or radiotherapy within 90 days. Has not lost 10% of body wt in 6 months. No history of oncological symptoms or problems. Psych: No history of psychiatric symptoms or problems. Musculoskeletal: Negative for joint pain or swelling, back pain or muscle pain. Skin: Negative for lesions, rash and itching. Objective PHYSICAL EXAM: VITALS: BP 165/82 Pulse 71 Temp (Src) 98.5 (Oral) Resp 14 Ht 5' 4 (1.63m) Wt 123 lb 7.3 oz (56.0kg) SpO2 99% BMI 21.18 kg/(m^2). General: Alert and oriented Skin: Normal color, no rash, no lesions. HEENT: EOM, pupils equal, round and reactive. Cardiovascular: Normal S1 & S2, no rubs, murmurs or gallops. No JVD. Pulse regular. Lungs: Normal breath sounds, no wheezes or crackles. Abdomen: Soft, non-tender, no rigidity. Extremities: No deformity, no edema or tenderness, no joint swelling or clubbing. Neurological: Normal cognition and motor skills. Pulses: Carotid and radial pulses normal +2. Diagnostic tests reviewed for today's visit: No new labs or tests Instructions Given to Patient: Instructions located in the after visit summary. Patient given verbal and written preop instructions and voices comprehension and compliance. SIGNATURE: Cecy Ramos APRN.CNP PATIENT NAME: Maria Douglass DATE: 02/17/2024 TIME: 10:10 AM documented in this encounter [facility] 02-16-2024 Instructions Cecy Ramos APRN.CNP - 02/16/2024 7:17 PM EST Images from the original note were not included. [place] [facility] Pre-Anesthesia Consultation Clinic PATIENT PREOPERATIVE INSTRUCTIONS Your Surgeon has scheduled you for your procedure at this surgery center: [facility]: [phone] --[phone] [place] [address]. Please read below carefully for your personalized instructions. Dietary Restrictions: - No solid food after midnight. - You may have 12 ounces of clear liquids (water, clear juices such as apple juice or gatorade, carbonated beverages, clear tea, black coffee, jello) until 2 hours before scheduled arrival at facility. Medications: Unless instructed differently below, stay on all of your medications until your surgery. If you start any new medications after today's visit, please contact the surgeon's office. Important Reminders: - If you are prescribed inhalers for breathing, continue using them. - Candy, mints, and tobacco products are NOT permitted the morning of surgery. - Hearing aids, dentures and glasses may be worn the morning of surgery. - NO jewelry, body piercings, makeup, hairpins or contacts are to be worn the day of surgery. If you develop symptoms such as a fever, cold, or flu, or have other changes to your health within TWO DAYS of scheduled surgery or the morning of surgery, please contact the surgery center above. Personal Belongings: -Please have photo ID and insurance cards. -If you do not have a copy of advance directives on file with us, please bring a copy with you on the day of surgery. - Leave ALL valuables and money at home or with family members. For Outpatient Procedures: - YOU MUST HAVE A RESPONSIBLE TRANSMISSION DESIGN ENGINEER TAKE YOU HOME. A CHAIRMAN & CEO OR DIRECTOR STRATEGY CANNOT BE MADE A RESPONSIBLE TRANSMISSION DESIGN ENGINEER. - We recommend that a responsible person stays with you overnight to take care of you. - You cannot stay in a hotel alone after outpatient surgery. You will not be permitted to have your surgery, if you do not have someone to take care of you. Arrival Time for Surgery: - The Surgery Center or hospital where you are having surgery will call the afternoon before surgery (or Saturday for Saturday surgery) with a scheduled arrival time. - If you have not heard by 4 pm, please contact the surgery center above. Please be aware that emergency situations arise, which may delay or change your surgical time. If this happens, we will notify you as soon as possible and regret any inconvenience. If you already have an Advance Directive, please fax a copy to [phone] or email to for it to be added to your chart. If you do not have an Advance Directive, you can find the appropriate form and more information at [email or web address]. We recommend that you complete the Advance Directive form found on the website and bring it with you the day of your surgery. It can be witnessed and scanned into your chart that day. Cecy Ramos APRN., CNP documented in this encounter [facility] 01-07-2024 Note HNO ID: [id number] Author: YANELI GRAVES MD Service: ? Author [...] kind referral! Allergies: see list - Aim: [place] OS / TBD OD, possibly -1.50 OD. [...] No - Blood thinner use No - Flomax/alpha-ky? No - Able to lie supine Yes [...] floaters were discuss (more content not included)... [facility] 01-07-2024 History of Present illness Narrative ASSESSMENT/PLAN: 1. Combined forms of [...] kind referral! Allergies: see list - Aim: [place] OS / TBD OD, possibly -1.50 OD. [...] No - Blood thinner use No - Flomax/alpha-ky? 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 Combined forms of age-related cataract of right eye Other and combined forms of senile cataract [facility] Diagnosis Combined forms of age-related cataract of [...] of senile cataract documented in this encounter [facility] Summary Purpose Family History No Family History Records FoundNo Family History Records FoundNo Family History Records Found Advance Directives No Advanced Directives Records FoundDocuments on File Type Date Recorded Patient Human Resources Generalist Expl anation Advance Directive(s) 02/17/2024 10:27 AM Additional Source Comments INFORMATION SOURCE (unrecogn ized section and content) DATE CREATED AUTHOR 03/02/2018 [facility] DATE CREATED AUTHOR AUTHOR'S ORGANIZ ATION 03/26/2022 [facility] DATE CREATED AUTHOR AUTHOR'S ORGANIZ ATION 03/07/2024 [facility] Source Comments (unrecognize d section and content) In the event this informatio n is protected by the Federal Confidentiality of Alcohol and Drug Abuse Patient Records regulations: The Federal rules restrict any use of the information to criminally investigate or prosecute any alcohol or drug abuse patient.[facility] the event this information is protected by the Federal Confidentiality of Alcohol and Drug Abuse Patient Records regulations: The Federal rules restrict any use of the information to criminally investigate or prosecute any alcohol or drug abuse patient.[facility] the event this information is protected by the Federal Confidentiality of Alcohol and Drug Abuse Patient Records regulations: The Federal rules restrict any use of the information to criminally investigate or prosecute any alcohol or drug abuse patient.[facility] Reason for Visit (unrecogniz ed section and content) Reason Comments Cataract Evaluation Reason Comments Anesthesia Consult Reason Comments Pre-Op Exam Care Teams (unrecognized sec tion and content) Sergeant Missile Crewman Relationship Specialty Start Date End Date Susy Alicea CNP [address] [place] [address] PCP - General Internal Medicine 01/03/24 Sergeant Missile Crewman Relationship Specialty Start Date End Date Susy Alicea CNP [address] [place] [address] PCP - General Internal Medicine 01/03/24 Sergeant Missile Crewman Relationship Specialty Start Date End Date Susy Alicea CNP [address] [place] [address] PCP - General Internal Medicine 01/03/24 FOR [...] BE BASED ON THE PRIMARY CLINICAL RECORDS. [employer] [facility]. provides no warranty or guarantee of the accuracy or completeness of information in this document.
== END 2024-04-06 11:29 | disposition home or self-care (01) ==
LOC: MAMMO 11:28
PROVIDERS: PCP Nurse Practitioner Family; Visit Provider Nurse Practitioner Family
DX: Z12.31 Encounter for screening mammogram for malignant neoplasm of breast (principal); Z80.3 Family history of malignant neoplasm of breast; Z80.0 Family history of malignant neoplasm of digestive organs; Z80.1 Family history of malignant neoplasm of trachea, bronchus and lung
CPT/HCPCS: 77063; 77067

== ENCOUNTER 2024-12-21 10:59 | Outpatient (OUT) | payer MEDICARE, SELFPAY ==
--- OUTSIDE RECORDS SUMMARY | 2024-07-24 12:58 | XMS_ITS ---
Author Name Auto Generated Organization OHIP Care Team Providers Care Raymond Mill Operator Name Role Phone YANELI GRAVES Admitting Unavailable YANELI GRAVES Attending Unavailable YANELI GRAVES Referring Unavailable DEANNE, SUSY S Primary Care Unavailable YANELI GRAVES Attending Unavailable NANDO BANKS Referring Unavailab le DEANNE, SUSY S Primary Care Unavailable YANELI GRAVES Referring Unavailable DEANNE, SUSY S Primary Care Unavailable DEANNE, SUSY S Primary Care Unavailable YANELI GRAVES Attending Unavailable NANDO BANKS Referring Unavailab le DEANNE, SUSY S Primary Care Unavailable YANELI GRAVES Admitting Unavailable YANELI GRAVES Attending Unavailable YANELI GRAVES Referring Unavailable DEANNE, SUSY S Primary Care Unavailable PROBLEMS DATE TYPE CONDITION / CODE ATTENDING STATUS [facility] 07/22/2024 Active Pseudophakia of both eyes / Z96.1(ICD-10) YANELI GRAVES Active [facility] 07/22/2024 Active After-cataract o f right eye with vision obscured / H26.491(ICD-10) YANELI GRAVES Active [facility] 07/22/2024 Active After-cataract o f left eye with vision obscured / H26.492(ICD-10) YANELI GRAVES Active [facility] 02/17/2024 Active Pre-op evaluatio n / Z01.818(ICD-10) NA Active [facility] 01/06/2024 Active 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 Author Type: Physician Type: Progress Notes Filed: 07/24/2024 14:02 Note Text: ASSESSMENT/PLAN: 1. After-cataract of right eye with vision obscured - ICD9: 366.53, ICD10: H26.491 (primary diagnosis) 2. After-cataract of left eye with vision obscured - ICD9: 366.53, ICD10: H26.492 -Patient was educated on posterior capsular opacity following cataract surgery. The risks, benefits, alternatives, personnel, and possible complications related to yttrium aluminum garnet (YAG) capsulotomy were discussed with the patient. Explained that risks include but are not limited to: increase in intraocular pressure, retinal tears/detachment, dislocation of the intraocular lens, and/or need for further procedures. Retinal detachment warning symptoms were reviewed with patient and she expresses understanding of the need to call and come in if any retinal detachment symptoms occur. Discussed risk of recurrent Posterior capsular opacity with possible need for repeat Yag PC. Discussed the risk of refractive change with the need to update glasses after Yag PC. Patient expresses understanding and elects to proceed with yttrium aluminum garnet (YAG) capsulotomy BOTH eyes by Dr. Graves, which was completed today. 3. Pseudophakia of both eyes - ICD9: V43.1, ICD10: Z96.1 Toric PC IOL both eyes (02/2024) by WM crowley; She is enjoying mini-monovision and going without glasses. Copy of today's visit note was sent to Dr. Banks Return to Dr. Banks in 2-4 weeks for VaTa/Refraction or sooner if needed. Yaneli Graves MDThe documentation for this note was completed by OMA uRth acting as a scribe for, and in the presence of, Dr. Yaneli Graves M.D. The documentation recorded by the scribe accurately [...] of its relevant components. Yaneli Graves MD ANES POSTPROC EVAL Observed: 03/04/2024 12:30 PM Status: COMPLETED Source: [facility] HNO ID: [id number] Author: TAN STACY MD Service: Anesthesiology Author Type: Anesthesiologist Type: Anesthesia Postprocedure Evaluation Filed: 03/04/2024 12:30 Note Text: POST ANESTHESIA EVALUATION NOTE : 1950 Procedure Summary Date: 03/04/24 Room / Location: [address] Anesthesia Start: 1144 Anesthesia Stop: 1207 [...] March 04, 2024 TIME: 12:30 PM CSN: [id number] OPERATIVE NO Observed: 03/04/2024 11:44 AM Status: COMPLETED Source: [facility] ID: [id number] Author: YANELI GRAVES MD Service: Ophthalmology Author Type: Physician Type: Operative Report Filed: 03/04/2024 12:09 Note Text: OPERATIVE/PROCEDURE REPORT LOG ID: [id number] Surgery/Procedure Date: 03/04/2024 Incision/Procedure Start Time: 11:57 AM Incision Close/Procedure End Time: 12:05 PM Surgeon(s)/Proceduralist(s) and Operating System Programmer(s): Surgeons and Role: * Yaneli Graves MD - Primary Operating System Programmer: None. Any nurse listed as assisting or [...] presence of the Nurse Coordinator and the copier repair technician and a secondary full lens verification as part of the Time Out, with patient identity, laterality, and lens choice confirmed against the source document by myself, the Car Rider Nurse, and the copier repair technician. Topical lidocaine gel 2% was placed [...] clear corneal incision was created with a [place] blade then a 2.4 mm keratome. The anterior chamber was reformed with Viscoat, after which the anterior capsule was opened centrally. Using the Utrata forceps a continuous curvilinear capsulorrhexis of approximately 5.5 mm round was created. Gentle hydrodissection was accomplished using preservative-free lidocaine on a 27-guage cannula. Using the Vinnie phacoemulsification unit with the Mozilla curved tip, the anterior chamber was entered [...] Implant Name Type Inv. Item Serial No. Market Researcher Lot No. LRB No. Used Action Model No. [id number] [employer] - [id number] Intraocular Lens [id number] [employer] [id number] [employer] Right 1 Implanted [id number] Drains: None. Complications: None. I performed the entire procedure. Comanage with Dr. Banks; [facility] SIGNATURE: Yaneli Graves MD PATIENT NAME: Maria Douglass DATE: March 04, 2024 TIME: 12:07 PM PAGER/CONTACT #: ANES PRE-OP Observed: 03/04/2024 10:56 AM Status: COMPLETED Source: [facility] ID: [id number] Author: TAN STACY MD Service: Anesthesiology Author Type: Anesthesiologist Type: Anesthesia Preprocedure Evaluation Filed: 03/04/2024 10:56 Note Text: ANESTHESIOLOGY DAY OF SURGERY NOTE : 1950 Procedure Information Date/Time: 03/04/24 1100 Procedures: PHACOEMULSIFICATION CATARACT IMPLANT INTRAOCULAR LENS W/O ENDOSCOPIC CYCLOPHOTOCOAGULATION (Right: Eye) OPHTHALMIC BIOMETRY BY PARTIAL COHERENCE INTERFEROMETRY W/INTRAOCULAR LENS POWER CALCULATION (Right: Eye) Location: [address] Surgeons: Yaneli Graves MD Estimated body [...] and consent discussed: yes. Patient / Responsible Alliance Party agrees to proceed: yes Patient / [...] March 04, 2024 TIME: 10:56 AM CSN: [id number] ANES POSTPROC EVAL Observed: 02/26/2024 12:14 PM Status: COMPLETED Source: [facility] ID: [id number] Author: ADDY ALCANTARA II, DO Service: Anesthesiology Author Type: Anesthesiologist Type: Anesthesia Postprocedure Evaluation Filed: 02/26/2024 12:14 Note Text: POST ANESTHESIA EVALUATION NOTE : 1950 Procedure Summary Date: 02/26/24 Room / Location: [place] [address] / [facility] Anesthesia Start: 1105 Anesthesia Stop: 112 Procedures: PHACOEMULSIFICATION CATARACT IMPLANT INTRAOCULAR LENS W/O [...] February 26, 2024 TIME: 12:14 PM CSN: [id number] OPERATIVE NO Observed: 02/26/2024 11:05 AM Status: COMPLETED Source: [facility] HNO ID: [id number] Author: YANELI GRAVES MD Service: Ophthalmology Author Type: Physician Type: Operative Report Filed: 02/26/2024 11:27 Note Text: OPERATIVE/PROCEDURE REPORT LOG ID: [id number] Surgery/Procedure Date: 02/26/2024 Incision/Procedure Start Time: 11:17 AM Incision Close/Procedure End Time: 11:24 AM Surgeon(s)/Proceduralist(s) and Operating System Programmer(s): Surgeons and Role: * Yaneli Graves MD - Primary Operating System Programmer: None. Any nurse listed as assisting or [...] eye, correct operation, and correct implant. The [employer] [employer] Lens verification Policy was meticulously followed as previously approved with both an initial lens verification by myself in the presence of the Nurse Coordinator and the copier repair technician and a secondary full lens verification as part of the Time Out, with patient identity, laterality, and lens choice confirmed against the source document by myself, the Car Rider Nurse, and the copier repair technician. Topical lidocaine gel 2% was placed [...] clear corneal incision was created with a [place] blade then a 2.4 mm keratome. The anterior chamber was reformed with Viscoat, after which the anterior capsule was opened centrally. Using the Utrata forceps a continuous curvilinear capsulorrhexis of approximately 5.5 mm round was created. Gentle hydrodissection was accomplished using preservative-free lidocaine on a 27-guage cannula. Using the Vinnie phacoemulsification unit with the Kelman curved tip, the anterior chamber was entered [...] Implant Name Type Inv. Item Serial No. Market Researcher Lot No. LRB No. Used Action Model No. [id number] [employer] - [id number] Intraocular Lens CCW0T5.180 [employer] [id number] [employer] Left 1 Implanted [id number] Drains: None. Complications: None. I performed the entire procedure. [facility] Dr[facility] Banks; [facility] SIGNATURE: Yaneli Graves MD PATIENT NAME: Maria Douglass DATE: February 26, 2024 TIME: 11:26 AM PAGER/CONTACT #: JAROD PRE-OP Observed: 02/26/2024 10:15 AM Status: COMPLETED Source: [facility] ID: [id number] Author: ADDY ALCANTARA II, DO Service: Anesthesiology Author Type: Anesthesiologist Type: Anesthesia Preprocedure Evaluation Filed: 02/26/2024 10:27 Note Text: ANESTHESIOLOGY DAY OF SURGERY NOTE : 1950 Procedure Information Date/Time: 02/26/24 1040 Procedures: PHACOEMULSIFICATION CATARACT IMPLANT INTRAOCULAR LENS W/O ENDOSCOPIC CYCLOPHOTOCOAGULATION (Left: Eye) OPHTHALMIC BIOMETRY BY PARTIAL COHERENCE INTERFEROMETRY W/INTRAOCULAR LENS POWER CALCULATION (Left: Eye) Location: [place] [address] / [facility] Surgeons: Yaneli Graves MD Estimated body mass [...] and consent discussed: yes. Patient / Responsible Alliance Party agrees to proceed: yes Patient / [...] 48 hours of Surgery/Procedure. SIGNATURE: Addy Alcantara II DO PATIENT NAME: Maria Douglass DATE: February 26, 2024 TIME: 10:15 AM CSN: [id number] PROGRESS Observed: 02/17/2024 11:31 AM Status: COMPLETED Source: [facility] ID: [id number] Author: CODY MIMS COA Service: ? Author Type: Gas Station Service Attendant Type: Progress Notes Filed: 02/17/2024 11:35 Note Text: CONFIRM AIM PLANO LEFT EYE. AIM RIGHT EYE TO BE DETERMINED. TORIC IOL BOTH EYES. OMA Coles HISTORY PHYSICAL Observed: 02/17/2024 10:20 AM Status: COMPLETED Source: [facility] HNO ID: [id number] Author: CECY RAMOS APRN.JHONY Service: ? Author Type: Nurse Practitioner Type: H&P Filed: 02/17/2024 10:20 Note Text: HISTORY AND PHYSICAL EXAMINATION SERVICE DATE: 02/17/2024 SERVICE TIME: 10:10 AM PRIMARY CARE PHYSICIAN: Susy Godoy CNP, JHONY REASON FOR VISIT: Maria Douglass [...] large neck Non-male patient STOP-Bang Score: 1 [id number] Score: Age: <65 Sex: female CHF history: No Hypertension history: No Stroke/TIA/thromboembolism history: No Vascular disease history: No Diabetes history: No [id number] Score: 1 ARISCAT Score: Age: <=50 Preoperative [...] fevers. Neuro: No history of TIA's, stroke, DIRECTOR SHOPPER MARKETING tumor, impaired sensorium, hemiplegia, paraplegia or quadraplegia. No neurological symptoms or problems. Respiratory: No history of current cough or dyspnea, or pneumonia in the past 6 weeks. No history of respiratory/pulmonary symptoms or problems. Cardiovascular: Negative for Recent MD, Angina, Chest Pain, PVD, DVT/PE GI: Negative for Nausea, Vomiting, Abdominal pain : Negative for dysuria, incontinence, hematuria, and hesitancy INDUSTRIAL ECOLOGY TECHNICIAN: Negative for abnormal vaginal bleeding, abnormal vaginal [...] 7.3 oz (56.0kg) SpO2 99% BMI 21.18 kg/(m2). General: Alert and oriented Skin: Normal color, no rash, no lesions. HEENT: EOM, pupils equal, round and reactive. Cardiovascular: Normal S1 AND S2, no rubs, murmurs or gallops. No [...] voices comprehension and compliance. SIGNATURE: Cecy Ramos APRN.JHONY PATIENT NAME: Maria Douglass DATE: 02/17/2024 TIME: 10:10 AM PROGRESS Observed: 01/07/2024 11:52 AM Status: COMPLETED Source: [facility] ID: [id number] Author: YANELI GRAVES MD Service: ? Author [...] kind referral! Allergies: see list - Aim: [place] OS / TBD OD, possibly -1.50 OD. [...] by phacoemulsification offered. - Co-mange with Dr. aBnks 3. Keratoconjunctivitis sicca of both eyes not [...] its relevant components. Yaneli Graves MD 01/07/24 ALLERGIES DATE TYPE / CODE NAME / CODE REACTION SEVERITY SOURCE Drug Class/[id number](SNO MED CT) NO KNOWN ALLERGIES [facility] ENCOUNTERS ADMIT/DISCHARGE ACCOUNT NUMBER ADMITTING ENCOUNTER CLASS LOCATION SOURCE 07/24/2024/07/25/19 [id number] [facility] 03/04/2024/03/04/20 [id number] YANELI GRAVES [facility] HospitalBuild ing:[id number]: [id number]: L01 [facility] 02/26/2024/02/26/20 [id number] YANELI GRAVES [facility] HospitalBuild ing:[id number]: [id number]: L01016 [facility] 02/17/2024/02/17/20 24 [id number] [facility] Hospital[facility]:BRITTNEY [facility] 02/17/2024/02/17/20 [id number] [facility]:MARIE [facility] 01/07/2024/01/07/20 [id number] [facility] [place] [facility] PAYERS ENCOUNTER GUARANTOR PAYER SUBSCRIBER SOURCE 07/24/2024 Primary Insurance:AETNA MEDICARE PPOPolicy Number: [id number] Date:9745-91-35Boaj Name:Juan STRANGE: [id number] [address] 03/04/2024 Primary Insurance:AETNA MEDICARE PPOPolicy Number: [id number] Date:1895-25-58Uesl Name:Juan STRANGE: [id number] [address] 02/26/2024 Primary Insurance:AETNA MEDICARE PPOPolicy Number: [id number] Date:1435-77-71Zfzo Name:Juan STRANGE: [id number] [address] 02/17/2024 Primary Insurance:AETNA MEDICARE PPOPolicy Number: [id number] Date:5445-01-78Dcwk Name:Juan STRANGE: [id number] [address] 02/17/2024 Primary Insurance:AETNA MEDICARE PPOPolicy Number: [id number] Date:6197-59-19Hhqp Name:Juan STRANGE: [id number] [address] 01/07/2024 Primary Insurance:AETNA MEDICARE PPOPolicy Number: [id number] Date:4452-61-39Wrbn Name:Juan STRANGE: [id number] [address] [place] [address]
[2024-12-21 11:31] LABS: Hematocrit 36.5 % (36.0-48.0); Hemoglobin 11.8 g/dL (12.0-16.0); Immature Granulocytes Abs Auto 0.01 10^3/uL (0.00-0.03); Immature Granulocytes Pct Auto 0.2 % (0.0-0.5); Lymphocytes Absolute Auto 0.9 10^3/uL (1.2-3.8); Mean Corpuscular HGB Conc 32.3 g/dL (29.9-35.2); Mean Corpuscular Hemoglobin 30.4 pg (26.7-34.0); Mean Corpuscular Volume 94.1 fL (81.0-99.0); Platelet Count 219 10^3/uL (150-450); Red Blood Count 3.88 10^6/uL (4.20-5.40); White Blood Count 4.2 10^3/uL (4.0-11.0)
[2024-12-21 12:19] LABS: Alanine Aminotransferase 28 U/L (14-59); Albumin Globulin Ratio 1.3; Albumin Level 4.0 g/dL (3.4-5.0); Alkaline Phosphatase 57 U/L (46-116); Anion Gap 13.9; Aspartate Amino Transferase 23 U/L (15-37); Blood Urea Nitrogen 19.0 mg/dL (7.0-18.0); Calcium 9.2 mg/dL (8.5-10.1); Carbon Dioxide 28.2 mmol/L (21.0-32.0); Chloride 106 mmol/L (98-107); Cholesterol 192 mg/dL (<=200); Estimated GFR (African America >60 (>=60 mL/min/1.73m^2); Estimated GFR (Non-African Ame >60 (>=60 mL/min/1.73m^2); Free T3 2.46 pg/mL (2.18-3.98); Globulin 3.1 g/dL; Glucose 97 mg/dL (74-106); HDL Cholesterol 84 mg/dL (40-60); Potassium 4.1 mmol/L (3.5-5.1); Sodium 144 mmol/L (136-145); Thyroid Stimulating Hormone 2.098 uIU/mL (0.358-3.740); Total Protein 7.1 g/dL (6.4-8.2); Triglycerides 63 mg/dL (<=150); VLDL CHOLESTEROL 12.6 mg/dL
[2024-12-21 12:32] LABS: Iron 61.0 ug/dL (50.0-170.0)
== END 2024-12-21 11:00 | disposition home or self-care (01) ==
LOC: LAB 11:00
PROVIDERS: PCP Nurse Practitioner Family; Visit Provider Nurse Practitioner Family
DX: I10 Essential (primary) hypertension (principal)
CPT/HCPCS: 36415; 80053; 80061; 82306; 83036; 83525; 83540; 84436; 84443; 84481; 85025

== ENCOUNTER 2025-01-21 09:30 | Outpatient (OUT) | payer MEDICARE, SELFPAY ==
--- OUTSIDE RECORDS SUMMARY | 2025-01-21 09:36 | XMS_ITS | Clinical Summary ---
Author Organization [facility] Address [address] [place], [place] [id number] Care Team Providers Care Sheriff'S Detective Name Role Phone Susy Godoy CNP Primary Care Provider + Allergies No known active allergies Medications MedicationSigDispense QuantityRefillsLast FilledStart DateEnd DateStatus cycloSPORINE 0.05 % drop 09/14/2023ctive Active Problems ProblemNoted DateDiagnosed DateAfter-cataract of left eye with vision obscured 07/22/2024Pseudophakia of both eyes07/22/2024Keratoconjunctivitis sicca of both eyes not specified as Sjogren'01/07/2024Wears contact ajnoba7601/07/2024VD (posterior vitreous detachment), gtmzojhjo00/15/2024 Resolved Problems ProblemNoted DateDiagnosed DateResolved DateCombined forms of age-related cataract of right eyeombined forms of age-related cataract of left eye Social History Tobacco UseTypesPacks/DayYears UsedDateSmoking Tobacco: NeverSmokeless Tobacco: Never Tobacco Cessation:Counseling Given: Not Answered Alcohol UseStandard Drinks/WeekCommentsYes0 (1 standard drink = 0.6 oz pure alcohol)1x monthlyArea Deprivation IndexAnswerDate RecordedNational Score (1- 100), lower number is lower bdvp7226State Score (1-10), lower number is lower khpk01904/18/2023ata from: https://www.neighborhoodatlas.medicine.[facility].edu/. Last address used for q[address] [facility] [address]/17/2024CommentsNoSex and Gender InformationValueDate RecordedSex Assigned at QutznSguxqu81/13/2024 1:35 PM EST Legal BusCcxvst68/11/2024 8:24 AM EDTGender IdentityNot on fileSexual OrientationNot on file Last Filed Vital Signs Vital SignReadingTime TakenCommentsBlood Qwzmhbyu141/6803/04/2024 12:20 PM EST Crapl741803/04/2024 12:20 PM JWSLglluvwtvac39.3 ??C (97.3 ??F)03/04/2024 12:10 PM ESTRespiratory Tfqp329605/05/2023 12:20 PM ESTOxygen Eolhhaljrg53%03/04/2024 12:20 PM ESTInhaled Oxygen Concentration--Zxdacm50 kg (123 lb 7.3 oz)02/17/2024 10:05 AM REYZksdhy777.6 cm (5' 4 )02/17/2024 10:05 AM ESTBody Mass Index21.19 02/17/2024 10:05 AM EST Plan of Treatment Health MaintenanceDue DateLast DoneCommentsAnxiety Mddhqylud42/03/1969Depression Hoqocmbae45/03/1969Hepatitis C Purkwydmd23/03/1969DTaP,Tdap,Td Vaccine (1 - Tdap)1969Mammogram Ixbwqofzt18/03/1991CT Qfubceklttdh11/03/1996Cologuard (FIT-DNA)08/26/19950518Foznhkjlwch66/03/1996Colorectal Cancer Cfyferyvy55/03/1996 Diabetes Tcxarrdiy96/03/1996Fecal Occult Blood08/26/1995Lipid Screening 08/26/19953363Ulraeifsfzkdl84/03/1996Bone Density Mjcgmtjne37/03/2016Pneumococcal Vaccine: 50+ (2 of 2 - PCV20 or PCV21), 01/09/2016Advance Directive Qxouswxmvm26/01/2025Covid-19 Vaccine ( - season)2024 Influenza Vaccine (#1)509/, 01/01/2018, 01/09/2017, Additional history existsRSV Vaccine (1 - 1-dose 75+ series)2025Shingrix Vaccine Vvkbkxudt47/25/2020, 02/21/2019, 11/14/2015 Medical Devices ImplantedTypeAreaManufacturerDevice IdentifierShelf Expiration DateModel / Serial / [id number] [employer] - [id number] Implanted:Qty: 1 on 02/26/2024 by Yaneli García MD at [facility] Intraocular LensLeft: [employer] [id number] / [id number] / [id number] [employer] - [id number] Implanted:Qty: 1 on 03/04/2024 by Yaneli García MD at [facility] Intraocular LensRight: [employer] [id number] / [id number] / Insurance * Guarantor: Maria Egan AAccount TypeRelation to PatientDate of BirthPhone Billing AddressPersonal/NqmxsxPfkk66/03/1951 [address] [address] Advance Directives TypeDate RecordedPatient RepresentativeExplanationAdvance Directive(s)02/17/2024 10:27 AMAdvance Directive(s)02/17/2024 10:27 AM Care Teams Team MemberRelationshipSpecialtyStart DateEnd Date Susy Godoy CNP [address] [place] [address] PCP - GeneralInternal Mvkofhwi48/11/24
--- OUTSIDE RECORDS SUMMARY | 2025-01-21 09:37 | XMS_ITS | CCD ---
Author Organization [facility] CliniSyaz Care Team Providers Care Python Web Developer Name Role Phone MCKENZIE GARCIA Unavailable Unavailable ELISHA JOSUE Unavailable Unavailable MCKENZIE GARCIA Unavailable Unavailable PAULINA WATSOND Attending Unavailable PAULINA WATSOND Consulting Unavailable SHIRLEY, AHMAD Admitting Unavailable DEANNE, SUSY Primary Care Unavailable STEVE, DR MARY Ren Consulting Unavailable DEANNE, SUSY Attending Unavailable DEANNE, SUSY Primary Care Unavailable DEANNE, SUSY Admitting Unavailable DEANNE, SUSY Consulting Unavailable DEANNE, SUSY Primary Care Unavailable DR THELMA HILL Consulting Unavailable DR THELMA HILL Admitting Unavailable DR THELMA HILL Attending Unavailable DEANNE, SUSY Primary Care Unavailable DEANNE, SUSY Attending Unavailable DEANNE, SUSY Admitting Unavailable DEANNE, SUSY Consulting Unavailable DEANNE, SUSY Primary Care Unavailable DR JAIRO ALVAREZ Consulting Unavailable DEANNE, SUSY Attending Unavailable DEANNE, SUSY Admitting Unavailable DEANNE, SUSY Consulting Unavailable DEANNE, SUSY Primary Care Unavailable DEANNE, SUSY Consulting Unavailable DEANNE, SUSY Attending Unavailable DEANNE, SUSY Admitting Unavailable DR THELMA HILL Consulting Unavailable DR THELMA HILL Admitting Unavailable DR THELMA HILL Attending Unavailable DEANNE, SUSY Primary Care Unavailable DEANNE, SUSY Attending Unavailable DEANNE, SUSY Admitting Unavailable DEANNE, SUSY Consulting Unavailable DEANNE, SUSY Primary Care Unavailable DEANNE, SUSY Admitting Unavailable DEANNE, SUSY Attending Unavailable DEANNE, SUSY Consulting Unavailable DEANNE, SUSY Primary Care Unavailable Deanne Susy BOOKER Primary Care Provider [phone] SUSY ALICEA S Primary Care Unavailable YANELI GARCÍA Attending Unavailable YANELI GARCÍA Referring Unavailable YANELI GARCÍA Admitting Unavailable DEANNE, SUSY S Primary Care Unavailable NANDO BANKSE Referring Unavailab YANELI Gibbs Attending Unavailable SUSY ALICEA S Primary Care Unavailable YANELI GARCÍA Referring Unavailable SUSY ALICEA S Primary Care Unavailable SUSY ALICEA S Primary Care Unavailable NANDO BANKS Referring Unavailab evan YANELI GARCÍA Attending Unavailable SUSY ALICEA S Primary Care Unavailable YANELI GARCÍA Attending Unavailable YANELI GARCÍA Referring Unavailable YANELI GARCÍA Admitting Unavailable Medications Current Medications MedicationDrug Class(es)DatesSig (Normalized)Sig (Original)benoxinate hydrochloride 4 mg/ml / fluorescein sodium 3 mg/ml ophthalmic solution (2 sources)Diagnostic DyeStart: 07-24-2024 End: 27-85-6642bhtvxgkbfyv-benoxinate 0.3-0.4 % 1 drop (FLURESS)Start: 07-24-2024 End: drop, BOTH EYES, DIRECTED, Starting on Sat07/24/24 at 1330, Until 07/25/24 at 0129, Administer for applanation tonometry. In the event of a Fluress shortage, administer 1 drop of Janeth-Fluor into both eyes as directed for applanation tonometry., OPHT CLINIC MED ORDERScycloSPORINE 0.5 mg/ml ophthalmic suspension (4 sources)Calcineurin Inhibitor ImmunosuppressantStart: 88-41-2504iekaiKHIPGQN 0.05 % drop 09/14/2023 Activeofloxacin 3 mg/ml ophthalmic solution (3 sources)Quinolone AntimicrobialStart: 01-07-2024 End: 09-78-5534hjnp 1 drop(s) into the eye(s) four times daily, then take 1 drop(s) into the eye(s) four times dailyofloxacin (OCUFLOX) 0.3 % ophthalmic solution 1 Drop four times daily. One drop in the OPERATIVE EYE only four times a day starting the day before surgery 10 mL 1 01/07/2024 04/06/2024 Active phenylephrine hydrochloride 25 mg/ml ophthalmic solution (2 sources)alpha-1 Adrenergic AgonistStart: 07-24-2024 End: 02-86-7993JUFYIIjgkpzbp 2.5 % 1 drop (AK-DILATE, FELIZ-SYNEPHRINE)Start: 07-24-2024 End: drop, BOTH EYES, DIRECTED, Starting on Sat07/24/24 at 1330, Until 07/25/24 at 0129, Administer for dilation PROTECT FROM LIGHT, OPHT CLINIC MED ORDERStropicamide 10 mg/ml ophthalmic solution (2 sources)AnticholinergicStart: 07-24-2024 End: 32-98-5331tegcffpxkce 1 % 1 drop (MYDRIACYL)Start: 07-24-2024 End: drop, BOTH EYES, DIRECTED, Starting on Sat07/24/24 at 1330, Until 07/25/24 at 0129, Administer for dilation, OPHT CLINIC MED ORDERS Completed/Discontinued Medications MedicationDrug Class(es)DatesSig (Normalized)Sig (Original)ketorolac tromethamine 5 mg/ml ophthalmic solution (2 sources)Nonsteroidal Anti-inflammatory Drug, Cyclooxygenase InhibitorStart: 02-26-2024 End: 95-39-8709dpTTSipzn (ACULAR) 0.5 % ophthalmic solution Use one drop in operative eye as directed by Dr. García starting tomorrow. 5 mL 03/04/2024 07/24/2024 Discontinued (Course of therapy completed)prednisoLONE acetate 10 mg/ml ophthalmic suspension (2 sources)CorticosteroidStart: 02-26-2024 End: 49-49-7967azvzfnaoUJNF acetate (PRED FORTE) 1 % ophthalmic suspension Use one drop in operative eye as directed by Dr. García starting tomorrow. 03/04/2024 07/24/2024 Discontinued (Course of therapy completed) Problems Active Problems Problem ClassificationProblemDateDocumented DateEpisodic/ChronicCataract (20 sources)Senile combined form cataract of right eye; Translations: [Combined forms of age-related cataract, right eye]Onset: 01-06-2024 Resolved: 451815-71-9099ErevrfkZtmmlbetyn and other anemia (5 sources)Anemia, unspecified; Translations: [ANEMIA UNSPECIFIED]Onset: 92-35-8073MyjhqsspFoacxvrk of white blood cells (4 sources)Decreased white blood cell count, unspecified; Translations: [DECREASED WBC COUNT UNSPECIFIED]Onset: 46-31-1304QwitkpnPrrljgzpt of lipid metabolism (1 source)Hyperlipidemia, unspecified; Translations: [HYPERLIPIDEMIA UNSPECIFIED]Onset: 86-01-4474IxmuupmMhzvkveqqmww; infection of eye (except that caused by tuberculosis or sexually transmitteddisease) (5 sources)Keratoconjunctivitis sicca; Translations: [Keratoconjunctivitis sicca, not specified as Sjogren's, bilateral]Onset: hronic Menopausal disorders (1 source)Other primary ovarian failure; Translations: [OTHER PRIMARY OVARIAN FAILURE]Onset: 04-02-3843QmbrdgzYwxsj eye disorders (5 sources)Bilateral posterior vitreous detachment; Translations: [Vitreous degeneration, bilateral]Onset: 584756-83-8615ZrfgmmlKswffgm disorders (8 sources)Hypothyroidism, unspecified; Translations: [Subclinical iodine- deficiency hypothyroidism]Onset: 61-61-6635Maoarvz Past or Other Problems Problem ClassificationProblemDateDocumented DateEpisodic/ChronicBlindness and vision defects (5 sources)Does use contact lenses; Translations: [Presence of spectacles and contact lenses]Onset: 409658-31-5453VlfyqbveUlqmbiko mellitus without complication (1 source)Other abnormal glucose; Translations: [OTHER ABNORMAL GLUCOSE]Onset: 76-39-4146TrrdqqlgHtjhzgdatatio symptoms and ill-defined conditions (4 sources)Hematuria, unspecified; Translations: [HEMATURIA UNSPECIFIED]Onset: 78-39-1945KejckawxKuqjd bone disease and musculoskeletal deformities (4 sources)Other specified disorders of bone density and structure, unspecified site; Translations: [OTH D/O BONE DEN STRUCT UNS SITE]Onset: 02-94-3457Ozdekrnj Other gastrointestinal disorders (4 sources)Diarrhea, unspecified; Translations: [DIARRHEA UNSPECIFIED]Onset: 39-59-9770JnoesravHpjxdev tract infections (4 sources)Urinary tract infection, site not specified; Translations: [UTI SITE NOT SPECIFIED]Onset: 43-15-1760Uqlwicck Results Test NameValueInterpretationReference RangeFacilityYAG CAPSULOTOMY OD (RIGHT EYE)on 20-59-2168Fjagywghy ClinicYAG CAPSULOTOMY OS (LEFT EYE)on 07-24-2024 [facility]AN[facility] POSTPROC EVALon 47-82-2736OTKK POSTPROC EVALHNO ID: [id number] Author: TAN STACY MD Service: Anesthesiology Author Type: Anesthesiologist Type: Anesthesia Postprocedure Evaluation Filed: 03/04/2024 12:30 Note Text: POST ANESTHESIA EVALUATION NOTE : 1950 Procedure Summary Date: 03/04/24 Room / Location: [address] Anesthesia Start: 1144 Anesthesia Stop: 1207 Procedures: PHACOEMULSIFICATION CATARACT IMPLANT INTRAOCULAR LENS W/O ENDOSCOPIC CYCLOPHOTOCOAGULATION (Right: Eye) OPHTHALMIC BIOMETRY BY PARTIAL COHERENCE INTERFEROMETRY W/INTRAOCULAR LENS POWER CALCULATION (Right: Eye) Diagnosis: Combined forms of age-related cataract of right eye (Combined forms of age-related cataract of right eye [H25.811]) Surgeons: Yaneli García MD Responsible Provider: Tan Stacy MD Anesthesia [...] March 04, 2024 TIME: 12:30 PM CSN: [id number] Good Samaritan HospitalANES PRE-OPon [id number] PRE-OPHNO ID: [id number] Author: TAN STACY MD Service: Anesthesiology Author Type: Anesthesiologist Type: Anesthesia Preprocedure Evaluation Filed: 03/04/2024 10:56 Note Text: ANESTHESIOLOGY DAY OF SURGERY NOTE : 1950 Procedure Information Date/Time: 03/04/24 1100 Procedures: PHACOEMULSIFICATION CATARACT IMPLANT INTRAOCULAR LENS W/O ENDOSCOPIC CYCLOPHOTOCOAGULATION (Right: Eye) OPHTHALMIC BIOMETRY BY PARTIAL COHERENCE INTERFEROMETRY W/INTRAOCULAR LENS POWER CALCULATION (Right: Eye) Location: [address] Surgeons: Yaneli García MD Estimated body mass index is 21.19 [...] and consent discussed: yes. Patient / Responsible Democrat agrees to proceed: yes Patient / Surrogate [...] in operative eye as directed by Dr. García starting tomorrow. keTORolac (ACULAR) 0.5 % ophthalmic solution Use one drop in operative eye as directed by Dr. García starting tomorrow. cycloSPORINE 0.05 % drop I have interviewed and examined the patient. I have reviewed the medical record and/or the pre-anesthesia evaluation, pertinent labs, and test results. This contains updated information obtained within 48 hours of Surgery/Procedure. SIGNATURE: Tan Stacy MD PATIENT NAME: Maria Douglass DATE: March 04, 2024 TIME: 10:56 AM CSN: [id number] Hospital Lima NOon [id number] NOHNO ID: [id number] Author: YANELI GARCÍA MD Service: Ophthalmology Author Type: Physician Type: Operative Report Filed: 03/04/2024 12:09 Note Text: OPERATIVE/PROCEDURE REPORT LOG ID: [id number] Surgery/Procedure Date: 03/04/2024 Incision/Procedure Start Time: 11:57 AM Incision Close/Procedure End Time: 12:05 PM Surgeon(s)/Proceduralist(s) and Diamond Setter Apprentice(s): Surgeons and Role: * Yaneli García MD - Primary Diamond Setter Apprentice: None. Any nurse listed as assisting or [...] eye, correct operation, and correct implant. The [place] [facility] Lens verification Policy was meticulously followed as previously approved with both an initial lens verification by myself in the presence of the Nurse Coordinator and the television production technician and a secondary full lens verification as part of the Time Out, with patient identity, laterality, and lens choice confirmed against the source document by myself, the Surgical Asst Nurse, and the television production technician. Topical lidocaine gel 2% was placed [...] clear corneal incision was created with a Sumner blade then a 2.4 mm keratome. The anterior chamber was reformed with Viscoat, after which the anterior capsule was opened centrally. Using the Utrata forceps a continuous curvilinear capsulorrhexis of approximately 5.5 mm round was created. Gentle hydrodissection was accomplished using preservative-free lidocaine on a 27-guage cannula. Using the Vinnie phacoemulsification unit with the simplifyMD curved tip, the anterior chamber was entered [...] Implant Name Type Inv. Item Serial No. Mold Filler Lot No. LRB No. Used (more content not included)...NormalBethesda North HospitalANES POSTPROC EVALon [id number] POSTPROC EVALHNO ID: [id number] Author: ADDY ALCANTARA II, DO Service: Anesthesiology Author Type: Anesthesiologist Type: Anesthesia Postprocedure Evaluation Filed: 02/26/2024 12:14 Note Text: POST ANESTHESIA EVALUATION NOTE : 1950 Procedure Summary Date: 02/26/24 Room / Location: [place] [address] / [facility] Anesthesia Start: 1105 Anesthesia Stop: 1126 Procedures: PHACOEMULSIFICATION CATARACT IMPLANT INTRAOCULAR LENS W/O ENDOSCOPIC CYCLOPHOTOCOAGULATION (Left: Eye) OPHTHALMIC BIOMETRY BY PARTIAL COHERENCE INTERFEROMETRY W/INTRAOCULAR LENS POWER CALCULATION (Left: Eye) Diagnosis: Combined forms of age-related cataract of left eye (Combined forms of age-related cataract of left eye [H25.812]) Surgeons: Yaneli García MD Responsible Provider: Addy Alcantara II, DO [...] February 26, 2024 TIME: 12:14 PM CSN: [id number] Hospital PRE-OPon [id number] PRE-OPHNO ID: [id number] Author: ADDY ALCANTARA II, DO Service: Anesthesiology Author Type: Anesthesiologist Type: Anesthesia Preprocedure Evaluation Filed: 02/26/2024 10:27 Note Text: ANESTHESIOLOGY DAY OF SURGERY NOTE : 1950 Procedure Information Date/Time: 02/26/24 1040 Procedures: PHACOEMULSIFICATION CATARACT IMPLANT INTRAOCULAR LENS W/O ENDOSCOPIC CYCLOPHOTOCOAGULATION (Left: Eye) OPHTHALMIC BIOMETRY BY PARTIAL COHERENCE INTERFEROMETRY W/INTRAOCULAR LENS POWER CALCULATION (Left: Eye) Location: [address] Surgeons: Yaneli García MD Estimated body mass index is 21.19 [...] and consent discussed: yes. Patient / Responsible Democrat agrees to proceed: yes Patient / Surrogate [...] February 26, 2024 TIME: 10:15 AM CSN: [id number] Good Samaritan HospitalOPERATIVE NOon [id number] NOHNO ID: [id number] Author: YANELI GARCÍA MD Service: Ophthalmology Author Type: Physician Type: Operative Report Filed: 02/26/2024 11:27 Note Text: OPERATIVE/PROCEDURE REPORT LOG ID: [id number] Surgery/Procedure Date: 02/26/2024 Incision/Procedure Start Time: 11:17 AM Incision Close/Procedure End Time: 11:24 AM Surgeon(s)/Proceduralist(s) and Diamond Setter Apprentice(s): Surgeons and Role: * Yaneli García MD - Primary Diamond Setter Apprentice: None. Any nurse listed as assisting or [...] presence of the Nurse Coordinator and the television production technician and a secondary full lens verification as part of the Time Out, with patient identity, laterality, and lens choice confirmed against the source document by myself, the Surgical Asst Nurse, and the television production technician. Topical lidocaine gel 2% was placed [...] clear corneal incision was created with a Sumner blade then a 2.4 mm keratome. The anterior chamber was reformed with Viscoat, after which the anterior capsule was opened centrally. Using the Utrata forceps a continuous curvilinear capsulorrhexis of approximately 5.5 mm round was created. Gentle hydrodissection was accomplished using preservative-free lidocaine on a 27-guage cannula. Using the Vinnie phacoemulsification unit with the simplifyMD curved tip, the anterior chamber was entered [...] Implant Name Type Inv. Item Serial No. Mold Filler Lot No. LRB No. Used Action (more content not included)...NormalBethesda North HospitalASCAN ONLY - DIAGNOSTIC OU (BOTH EYES)on 91-84-2495Rsjbiijju ClinicRadiology Study observation (narrative)[facility] CenterHISTORY PHYSICALon [id number] PHYSICALHNO ID: [id number] Author: CECY RAMOS APRN.CNP Service: ? Author Type: Nurse Practitioner Type: H&P Filed: 02/17/2024 10:20 Note Text: HISTORY AND PHYSICAL EXAMINATION SERVICE DATE: 02/17/2024 SERVICE TIME: 10:10 AM PRIMARY CARE PHYSICIAN: Susy Alicea CNP, JHONY REASON FOR VISIT: Maria Douglass is a 73 year old female who is scheduled for at the request of Dr. Yaneli García for consultation. My final recommendation will be [...] large neck Non-male patient STOP-Bang Score: 1 [id number] Score: Age: <65 Sex: female CHF history: No Hypertension history: No Stroke/TIA/thromboembolism history: No Vascular disease history: No Diabetes history: No [id number] Score: 1 ARISCAT Score: Age: <=50 Preoperative [...] fevers. Neuro: No history of TIA's, stroke, HYDRO OPERATOR tumor, impaired sensorium, hemiplegia, paraplegia or quadraplegia. No neurological symptoms or problems. Respiratory: No history of current cough or dyspnea, or pneumonia in the past 6 weeks. No history of respiratory/pulmonary symptoms or problems. Cardiovascular: Negative for Recent [place], Angina, Chest Pain, PVD, DVT/PE GI: Negative for Nausea, Vomiting, Abdominal pain : Negative for dysuria, incontinence, hematuria, and hesitancy WEIGHBRIDGE OPERATOR: Negative for abnormal vaginal bleeding, abnormal vaginal discharge. : Denies, No LMP recorded. Patient is postmenopausal. Endocrine: No history of d (more content not included)...[facility] BIOMETRY W/ IOL CALC OU (BOTH EYES)on 13-38-0037Zsptjeeck Clinic Radiology Study observation (narrative)[facility] CenterMG MAMM SCREEN 3D RUKHSANA CAD on 03-71-1388RL MAMM SCREEN 3D RUKHSANA CADPatient: MARIA DOUGLASSNaren Exam Date: 03/26/2022 : 1950 Gender:F Ordering : SUSY ALICEA [facility] Admission #: [id number] Family : Order #: [id number] CLICK HERE TO VIEW EXAM RADIOLOGY REPORT [...] lung cancer at age 50. LOCATION: [facility] BREAST COMPOSITION: Scattered areas fibroglandular density. FINDINGS: [...] LUMP SHOULD BE BIOPSIED. Dictated by: Mary Pereira MD on 03/26/2022 at 11:00 Approved by: Mary Pereira MD on 03/26/2022 at 11:02[facility] AUTO DIFFon [id number] #0.0 103/ulNormal0.0-0.1[facility] HospitalComment on above:Performed By: #### CBC #### [facility] [address] [place] [address] Dr. Ray FabianBasophils/100 WBC (Bld)0.5 %Normal0.2-2.0[facility] Comment on above:Performed By: #### CBC #### [facility] [address] [place] [address] Dr. Ray Melgar #0.1 103/ulNormal0.0-0.7The [facility]S Medical CenterComment on above: Performed By: #### CBC #### [facility] [address] [place] [address] Dr. Ray Carusoosinophils/100 WBC (Bld)3.0 %Normal0.9-7.0[facility] Comment on above:Performed By: #### CBC #### [facility] [address] [place] [address] Dr. Ray Carusorythrocyte distribution width (RBC) [Ratio]14.0 %Ucyfqq02.0-15.[address] [facility] CenterComment on above:Performed By: #### CBC #### [facility] [address] [place] [address] Dr. Ray FabianHematocrit (Bld) [Volume fraction]37.6 %Ghyfbw23.0-48.0The [facility] Medical CenterComment on above:Performed By: #### CBC #### [facility] [address] [place] [address] Dr. Ray FabianHemoglobin (Bld) [Mass/Vol]12.1 g/sFVilhfe51.0-16.0The [facility] CenterComment on above:Performed By: #### CBC #### [facility] [address] [place] [address] Dr. Ray Navarro #0.01 10e3/ulNormal0.00-0.03The [facility] on above:Performed By: #### CBC #### [facility] [address] [place] [address] Dr. Ray Navarro %0.3 %Normal0.0-0.5The [facility] Medical CenterCommclaren thumb region on above: Performed By: #### CBC #### [facility] [address] [place] [address] Dr. Ray Bustos #1.3 103/ulNormal1.2-3.8The [facility] Medical CenterCommclaren thumb region on above:Performed By: #### CBC #### [facility] [address] [place] [address] Dr. Ray Lopezhocytes/100 WBC (Bld)32.9 %Qeiuva31.5-60.0The [facility] on above:Performed By: #### CBC #### [facility] [address] [place] [address] Dr. Ray BoucherUAL DIFF REQNONormalThe [facility] on above: Performed By: #### CBC #### [facility] [address] [place] [address] Dr. Ray Guevara (RBC) [Entitic mass]30.3 pdTfethk87.7-34.0The [facility] on above:Performed By: #### CBC #### [facility] [address] [place] [address] Dr. Ray Guevara (RBC) [Mass/Vol]32.2 g/nRIbvaye29.9-35.2The [facility] on above:Performed By: #### CBC #### [facility] [address] [place] [address] Dr. Ray Guevara (RBC) [Entitic vol]94.2 jDAlvbdu09.0-99.0The [facility] on above:Performed By: #### CBC #### [facility] [address] [place] [address] [address] Ray Schreiber #0.4 103/ulNormal0.3-0.8The [facility] Medical CenterComment on above:Performed By: #### CBC #### [facility] [address] [place] [address] [address] Ray Hernadezocytes/100 WBC (Bld)9.8 %Normal1.7-12.0The [facility] Comment on above:Performed By: #### CBC #### [facility] [address] [place] [address] Dr. Ray Erwin #2.1 103/ulNormal1.4-6.5The [facility] Medical CenterComment on above:Performed By: #### CBC #### [facility] [address] [place] [address] Dr. Ray Guthrieutrophils/100 WBC (Bld)53.5 %Vcxrez17.0-75.0The [facility] Medical CenterComment on above:Performed By: #### CBC #### [facility] [address] [place] [address] Dr. Ray Hardwick mean volume (Bld) [Entitic vol]9.7 fLNormal9.5-13.5The [facility] Medical CenterComment on above:Performed By: #### CBC #### [facility] [address] [place] [address] Dr. Ray FabianPLT205 103/zkIptmbl025-439Brl [facility] CenterComment on above: Performed By: #### CBC #### [facility] [address] [place] [address] Dr. Ray FabianRBC3.99 106/ulCritically low4.20-5.40The [facility] Westment on above:Performed By: #### CBC #### [facility] [address] [place] [address] Dr. Ray FabianWBC4.0 103/ulNormal4.0-11.0The [facility] Medical CenterComment on above: Performed By: #### CBC #### [facility] [address] [address] [address] Ray Locke AUTO DIFFon [id number] #0.0 103/ulNormal0.0-0.1The [facility] CenterComment on above:Performed By: #### CBC #### [facility] [address] [place] [address] Dr. Ray FabianBasophils/100 WBC (Bld)0.5 %Normal0.2-2.0[facility] Comment on above:Performed By: #### CBC #### [facility] [address] [place] [address] Dr. Ray Melgar #0.1 103/ulNormal0.0-0.7The [facility] CenterComment on above: Performed By: #### CBC #### [facility] [address] [place] [address] Dr. Ray Carusoosinophils/100 WBC (Bld)2.7 %Normal0.9-7.0[facility] Comment on above:Performed By: #### CBC #### [facility] [address] [place] [address] Dr. Ray Carusorythrocyte distribution width (RBC) [Ratio]14.9 %Nifjxi78.0-15.0 [facility] HospitalComment on above:Performed By: #### CBC #### [facility] [address] [place] [address] Dr. Ray FabianHematocrit (Bld) [Volume fraction]35.3 %Critically low36.0-48.[address] [facility] CenterComment on above:Performed By: #### CBC #### [facility] [address] [place] [address] Dr. Ray FabianHemoglobin (Bld) [Mass/Vol]11.4 g/dLCritically low12.0-16.0[facility] HospitalComment on above:Performed By: #### CBC #### [facility] [address] [place] [address] Dr. Ray Navarro #0.00 10e3/ulNormal0.00-0.03The [facility] Medical CenterComment on above:Performed By: #### CBC #### [facility] [address] [place] [address] Dr. Ray Navarro %0.0 %Normal0.0-0.5The [facility] Medical CenterComment on above: Performed By: #### CBC #### [facility] [facility] [address] [address] [address] Ray Bustos #1.0 103/ulCritically low1.2-3.8The [facility] Comment on above:Performed By: #### CBC #### [facility] [address] [place] [address] Dr. Ray Lopezhocytes/100 WBC (Bld)25.9 %Roxcly66.5-60.0The [facility] Medical CenterComment on above:Performed By: #### CBC #### [facility] [address] [place] [address] Dr. Ray Rodríguez DIFF REQNONormalThe [facility]S Medical CenterComment on above: Performed By: #### CBC #### [facility] [address] [place] [address] Dr. Ray Edgar (RBC) [Entitic mass]29.8 qvIutpyv37.7-34.0The [facility] Medical CenterComment on above:Performed By: #### CBC #### [facility] [address] [place] [address] Dr. Ray Guevara (RBC) [Mass/Vol]32.3 g/iWYhrbjr52.9-35.2The [facility] Medical CenterComment on above:Performed By: #### CBC #### [facility] [address] [place] [address] Dr. Ray Jeff (RBC) [Entitic vol]92.4 oAQndrud93.0-99.0The [facility] CenterComment on above:Performed By: #### CBC #### [facility] [address] [place] [address] Dr. Yilan ChangMONO #0.3 103/ulNormal0.3-0.8The [facility] CenterComment on above:Performed By: #### CBC #### [facility] [address] [place] [address] Dr. Ray Hernadezocytes/100 WBC (Bld)8.4 %Normal1.7-12.0The [facility] Comment on above:Performed By: #### CBC #### [facility] [address] [place] [address] Dr. Ray Erwin #2.3 103/ulNormal1.4-6.5The [facility] CenterComment on above:Performed By: #### CBC #### [facility] [address] [place] [address] Dr. Ray Guthrieutrophils/100 WBC (Bld)62.5 %Ybciej85.0-75.0The [facility] CenterComment on above:Performed By: #### CBC #### [facility] [address] [place] [address] Dr. Ray Zamarripalet mean volume (Bld) [Entitic vol]9.7 fLNormal9.5-13.5The [facility] CenterComment on above:Performed By: #### CBC #### [facility] [address] [place] [address] Dr. Ray FabianPLT218 103/eqNtrhse452-184Bfd [facility] CenterComment on above: Performed By: #### CBC #### [facility] [address] [place] [address] Dr. Ray FabianRBC3.82 106/ulCritically low4.20-5.40The [facility] CenterComment on above:Performed By: #### CBC #### [facility] [address] [place] [address] Dr. Ray FabianWBC3.7 103/ulCritically low4.0-11.0The [facility] CenterComment on above:Performed By: #### CBC #### [facility] [address] [place] [address] Dr. Ray Krishnamurthy DEXA BONE DENSITYon [id number] DEXA BONE DENSITYEXAMINATION: XR DEXA BONE DENSITY, 11/30/2021 9:03 AM [...] Electronically authenticated by: JAIRO ALVAREZ Date: 2021-11-30 11:50NormOhioHealth Dublin Methodist HospitalINSULINon [id number] uIU/mLNormal2.6-24.9The [facility] Westment on above:Performed By: #### CBC #### [facility] [address] [address] [address] Ray FabianT4, T3U, FTI LABCORPon 35-45-0696Bzyl Thyroxine Index1.9Normal 1.2-4.9The [facility] on above:Performed By: #### CBC #### [facility] [address] [address] [address] Ray FabianT3 Lsfwnl59 %Bxuvux78-89Ngf [facility] Westment on above: Performed By: #### CBC #### [facility] [address] [address] [address] Ray Thompson4 [Mass/Vol]6.9 ug/dLNormal4.5-12.0The [facility] on above:Performed By: #### CBC #### [facility] [address] [address] [address] Ray FabianCBC AUTO DIFFon [id number] #0.0 103/ulNormal0.0-0.1The [facility] HospitalComment on above:Performed By: #### CBC #### [facility] [address] [place] [address] Dr. Ray FabianBasophils/100 WBC (Bld)0.3 %Normal0.2-2.0The [facility] Comment on above:Performed By: #### CBC #### [facility] [address] [place] [address] Dr. Ray Melgar #0.1 103/ulNormal0.0-0.7The [facility] Medical CenterComment on above: Performed By: #### CBC #### [facility] [address] [place] [address] Dr. Ray Carusoosinophils/100 WBC (Bld)2.4 %Normal0.9-7.0The [facility] Comment on above:Performed By: #### CBC #### [facility] [address] [place] [address] Dr. Ray Carusorythrocyte distribution width (RBC) [Ratio]14.7 %Rglqly73.0-15.[address] [facility] Medical CenterComment on above:Performed By: #### CBC #### [facility] [address] [place] [address] Dr. Ray FabianHematocrit (Bld) [Volume fraction]40.0 %Stgfqb43.0-48.0The [facility] Medical CenterComment on above:Performed By: #### CBC #### [facility] [address] [place] [address] Dr. Ray FabianHemoglobin (Bld) [Mass/Vol]13.0 g/xJUcuzye35.0-16.0The [facility] CenterComment on above:Performed By: #### CBC #### [facility] [address] [place] [address] Dr. Ray Navarro #0.01 10e3/ulNormal0.00-0.03The [facility] CenterComment on above:Performed By: #### CBC #### [facility] [address] [place] [address] Dr. Ray Navarro %0.3 %Normal0.0-0.5The [facility] Medical CenterComment on above: Performed By: #### CBC #### [facility] [address] [place] [address] Dr. Ray Bustos #1.1 103/ulCritically low1.2-3.8The [facility] Comment on above:Performed By: #### CBC #### [facility] [address] [place] [address] Dr. Ray Lopezhocytes/100 WBC (Bld)31.8 %Adkmcv56.5-60.0The [facility] CenterComment on above:Performed By: #### CBC #### [facility] [address] [place] [address] Dr. Ray Rodríguez DIFF REQNONormalThe [facility] CenterComment on above: Performed By: #### CBC #### [facility] [address] [place] [address] Dr. Ray Edgar (RBC) [Entitic mass]29.7 xiUjopby02.7-34.0The [facility] CenterComment on above:Performed By: #### CBC #### [facility] [address] [place] [address] Dr. Ray Guevara (RBC) [Mass/Vol]32.5 g/dNImuqka47.9-35.2The [facility] CenterComment on above:Performed By: #### CBC #### [facility] [address] [place] [address] Dr. Ray Jeff (RBC) [Entitic vol]91.3 zQReeiyg20.0-99.0The [facility] CenterComment on above:Performed By: #### CBC #### [facility] [address] [place] [address] Dr. Ray Schreiber #0.3 103/ulNormal0.3-0.8The [facility] CenterComment on above:Performed By: #### CBC #### [facility] [address] [place] [address] Dr. Ray Hernadezocytes/100 WBC (Bld)7.6 %Normal1.7-12.0The [facility] Comment on above:Performed By: #### CBC #### [facility] [address] [place] [address] Dr. Ray Erwin #2.0 103/ulNormal1.4-6.5The [facility] CenterComment on above:Performed By: #### CBC #### [facility] [address] [place] [address] Dr. Ray Guthrieutrophils/100 WBC (Bld)57.6 %Xqnofa52.0-75.0The [facility] CenterComment on above:Performed By: #### CBC #### [facility] [address] [place] [address] Dr. Ray FabianPlatelet mean volume (Bld) [Entitic vol]9.6 fLNormal9.5-13.5The [facility] CenterComment on above:Performed By: #### CBC #### [facility] [address] [place] [address] Dr. Ray FabianPLT209 103/tdNaqrxb518-737Vkz [facility] CenterComment on above: Performed By: #### CBC #### [facility] [address] [place] [address] Dr. Ray FabianRBC4.38 106/ulNormal4.20-5.40The [facility] CenterComment on above:Performed By: #### CBC #### [facility] [address] [place] [address] Dr. Ray FabianWBC3.4 103/ulCritically low4.0-11.0The [facility] CenterComment on above:Performed By: #### CBC #### [facility] [address] [place] [address] Dr. Ray FabianGLYCOHEMOGLOBIN A1Con [id number] RECOMMENDATIONSEE BELOWNormal [facility] HospitalComment on above:Result Comment: ADA RECOMMENDED LIMIT 4.0 - 6.0 ADA THERAPEUTIC TARGET < 7.0 ACTION SUGGESTED > 7.0Performed By: #### A1C #### [facility] [address] [place] [address] Dr. Ray FabianGlucose [Mass/Vol]120 mg/dLSelect Medical Specialty Hospital [facility], Inc on above:Performed By: #### A1C #### [facility] [address] [place] [address] Dr. Ray FabianHbA1c (Bld) [Mass fraction]5.8 %Normal4.5-6.2The [facility] Westment on above:Performed By: #### A1C #### [facility] [address] [place] [address] Dr. Ray Prasad 71-11-1113Svup [Mass/Vol]96.0 ug/bKOrmfdx35.0-170.0The [facility] on above:Performed By: #### IRON #### [facility] [address] [place] [address] Dr. Ray FabianLIPID PROFILEon [id number]-HDL RATIO NORMSEE BELOWTrinity Health System Twin City Medical CenterComment on above:Result Comment: 3.3 - 4.4 LOW RISK 4.4 - 7.1 AVERAGE RISK 7.1 - 11.0 MODERATE RISK >11.0 HIGH RISKPerformed By: #### CBC #### [facility] [address] [place] [address] Dr. Ray FabianCholesterol [Mass/Vol]221 mg/dLCritically high<=200The [facility] on above:Performed By: #### CBC #### [facility] [address] [place] [address] Dr. Ray Whatleyesterol in HDL [Mass/Vol]88 mg/dLCritically ysbv77-08Sjn [facility] on above:Performed By: #### CBC #### [facility] [address] [place] [address] Dr. Ray Whatleyesterol in LDL [Mass/Vol]116.4 mg/dLSelect Medical Specialty [facility], Inc on above:Performed By: #### CBC #### [facility] [address] [place] [address] Dr. Ray FabianCholesterol.total/Cholesterol in HDL [Mass ratio]2.5 {ratio} NormalThe [facility] CenterComment on above:Performed By: #### CBC #### [facility] [address] [address] [address] Ray Parada NORMAL> or = 60 mg/dl - LOW CARDIOVASCULAR RISK <40 mg/dl - HIGH CARDIOVASCULAR RISKTrinity Health System Twin City Medical CenterComment on above:Performed By: #### CBC #### [facility] [address] [address] [address] Ray FabianLDL CALC NORMALSEE BELOWTrinity Health System Twin City Medical CenterComment on above:Result Comment: <100 mg/dl OPTIMAL 100 - 129 mg/dl NEAR OR ABOVE OPTIMAL 130 - 159 mg/dl BORDERLINE HIGH 160 - 189 mg/dl HIGH >190 mg/dl VERY HIGH Performed By: #### CBC #### [facility] [address] [place] [address] Dr. Ray FabianTriglyceride [Mass/Vol]83 mg/dLNormal<=150The [facility] Comment on above:Performed By: #### CBC #### [facility] [address] [address] [address] Ray FabianVLDL CALC16.6 mg/dLNoMercy Health Perrysburg HospitalComment on above: Performed By: #### CBC #### [facility] [address] [address] [address] Ray FabianPROF 14(COMP METB)on 26-87-2393Pbagwzc [Mass/Vol]4.3 g/dLNormal 3.4-5.0The [facility] CenterComment on above:Performed By: #### CBC #### [facility] [address] [address] [address] Ray FabianAlbumin/Globulin [Mass ratio]1.4 {ratio}NormalThe [facility] CenterComment on above:Performed By: #### CBC #### [facility] [address] [address] [address] Ray OteroP [Catalytic activity/Vol]50 U/RLbmgwo23-462Uto [facility] CenterComment on above:Performed By: #### CBC #### [facility] [address] [address] [address] Ray OteroT [Catalytic activity/Vol]24 U/UWgbdws05-47Gej [facility] CenterComment on above:Performed By: #### CBC #### [facility] [address] [address] [address] Ray Mendezon gap [Moles/Vol]12.0 mmol/LNormalThe [facility] Comment on above:Performed By: #### CBC #### [facility] [address] [address] [address] Ray FabianAST [Catalytic activity/Vol]20 U/DVqprft65-07Wjt [facility] CenterComment on above:Performed By: #### CBC #### [facility] [address] [place] [address] Dr. Ray FabianBilirubin [Mass/Vol]0.6 mg/dLNormal0.2-1.0The [facility] Comment on above:Performed By: #### CBC #### [facility] [address] [address] [address] Ray FabianCalcium [Mass/Vol]9.3 mg/dLNormal8.5-10.1[facility] Comment on above:Performed By: #### CBC #### [facility] [address] [address] [address] Ray FabianChloride [Moles/Vol]103 mmol/WMjdijb07-389Yqo [facility] Comment on above:Performed By: #### CBC #### [facility] [address] [address] [address] Ray FabianCO2 [Moles/Vol]30.1 mmol/YAdrfmo23.0-32.0The [facility] Comment on above:Performed By: #### CBC #### [facility] [address] [address] [address] Ray FabianCreatinine [Mass/Vol]0.76 mg/dLNormal0.55-1.02The [facility] CenterComment on above:Performed By: #### CBC #### [facility] [address] [address] [address] Ray CarusoGFR-AF MALAWIAN>60Normal>=60The [facility] CenterComment on above:Performed By: #### CBC #### [facility] [address] [address] [address] Ray CarusoGFR-NON AF MALAWIAN>60Normal>=60The [facility] CenterComment on above:Performed By: #### CBC #### [facility] [address] [address] [address] aRy FabianGlobulin (S) [Mass/Vol]3.0 g/dLNormalThe [facility] CenterComment on above:Performed By: #### CBC #### [facility] [address] [address] [address] Ray FabianGlucose [Mass/Vol]101 mg/jQWkjjdv13-935Xdk [facility] Comment on above:Performed By: #### CBC #### [facility] [address] [address] [address] Ray FabianPotassium [Moles/Vol]4.1 mmol/LNormal3.5-5.1The [facility] Comment on above:Performed By: #### CBC #### [facility] [address] [address] [address] Ray FabianProtein [Mass/Vol]7.3 g/dLNormal6.4-8.2The [facility] Comment on above:Performed By: #### CBC #### [facility] [address] [address] [address] Ray FabianSodium [Moles/Vol]141 mmol/XHpvfmp413-330Quo [facility] Comment on above:Performed By: #### CBC #### [facility] [address] [address] [address] Ray FabianUrea nitrogen [Mass/Vol]16.0 mg/dLNormal7.0-18.0The [facility] CenterComment on above:Performed By: #### CBC #### [facility] [address] [address] [address] Ray Hannon nitrogen/Creatinine [Mass ratio]21.1 mg/mgNormalThe [facility] CenterComment on above:Performed By: #### CBC #### [facility] [address] [address] [address] Ray Mesa 26-73-3575BUQ0.003 uIU/mLNormal0.358-3.740The [facility] CenterComment on above:Performed By: #### CBC #### [facility] [address] [address] [address] Ray Strange PANEL (PCR)on 47-12-9289Lpeftagjfm F 40/41Not detectedNormal NOT DETECTEDThe [facility] CenterComment on above:Performed By: #### MARCO ANTONIOL #### [facility] [address] [place] [address] Dr. Ray FabianAstrovirusNot detectedNormalNOT DETECTEDThe [facility] Comment on above:Performed By: #### MARILEEANEL #### [facility] [address] [place] [address] Dr. Ray Ying. Diff toxin A/BNot detectedNormalNOT DETECTEDThe [facility] CenterComment on above:Performed By: #### MARILEEANEL #### [facility] [address] [place] [address] Dr. Ray FernandezpylobacterNot detectedNormalNOT DETECTEDThe [facility] Comment on above:Performed By: #### MARILEEANEL #### [facility] [address] [place] [address] Dr. Ray NguyễnyptosporidiumNot detectedNormalNOT DETECTEDThe [facility] CenterComment on above:Performed By: #### MARILEEANEL #### [facility] [address] [place] [address] Dr. Ray Bakeros. CayetanensisNot detectedNormalNOT DETECTEDThe [facility] CenterComment on above:Performed By: #### MARILEEANEL #### [facility] [address] [place] [address] Dr. Ray Fermin Coli O885Nwq ApplicableNormalNot ApplicableThe [facility] CenterComment on above:Performed By: #### GIPANEL #### [facility] [address] [address] [address] Ray Caruso. histolyticaNot detectedNormalNOT DETECTEDThe [facility] Comment on above:Performed By: #### GIPANEL #### [facility] [address] [address] [address] Ray CarusoAECNot detectedNormalNOT DETECTEDThe [facility] CenterComment on above:Performed By: #### GIPANEL #### [facility] [address] [address] [address] Ray CarusoIECNot detectedNormalNOT DETECTEDThe [facility] CenterComment on above:Performed By: #### GIPANEL #### [facility] [address] [address] [address] Ray CarusoPECNot detectedNormalNOT DETECTEDThe [facility] CenterComment on above:Performed By: #### MARILEEANEL #### [facility] [address] [address] [address] Ray CarusoTECNot detectedNormalNOT DETECTEDThe [facility] CenterCommclaren thumb region on above:Performed By: #### MARILEEANEL #### [facility] [address] [address] [address] Ray Harris. LambliaNot detectedNormalNOT DETECTEDThe [facility] Comment on above:Performed By: #### MARILEEANEL #### [facility] [address] [address] [address] Ray Garcia CONTROLSPASSEDTrinity Health System Twin City Medical CenterComment on above:Performed By: #### GIPANEL #### [facility] [address] [address] [address] Ray Bella CARMEL HEADERGI PANEL BACTERIATrinity Health System [facility] Medical Center Comment on above:Performed By: #### MARILEEANEL #### [facility] [address] [address] [address] Ray BellaHD ECOLIGI PANEL DIARRHEAGENIC E.COLI / SHIGELLATrinity Health System Twin City Medical CenterComment on above:Performed By: #### MARILEEANEL #### [facility] [address] [address] [address] Ray Corley INFOSEE [facility] WestComment on above: Result Comment: EAEC- Enteroaggregative E. Coli EPEC- Enteropathogenic E. Coli ETEC- Enterotoxigenic E. Coli lt/st STEC- Shigella-like toxin-producing E. Coli stx1/stx2 EIEC- Shigella/Enteroinvasive E. ColiPerformed By: #### MARILEEANEL #### [facility] [address] [address] [address] Ray Corley PARASITESGI PANEL [facility] Comment on above:Performed By: #### MARILEEANEL #### [facility] [address] [address] [address] Ray Corley VIRUSGI PANEL [facility] HospitalComment on above:Performed By: #### MARILEEANEL #### [facility] [address] [address] [address] Ray Hinesrovirus GI/GIINot detectedNormalNOT DETECTEDThe [facility] CenterComment on above:Performed By: #### MARILEEANEL #### [facility] [address] [place] [address] Dr. Ray Hedrick ShigelloidesNot detectedNormalNOT DETECTEDThe [facility] CenterComment on above:Performed By: #### GIPANEL #### [facility] [address] [address] [address] Ray FabianRotavirus ANot detectedNormalNOT DETECTEDProm[facility]ica [facility] Comment on above:Performed By: #### GIPANEL #### [facility] [address] [address] [address] Ray FabianSalmonellaNot detectedNormalNOT DETECTEDThe [facility] Comment on above:Performed By: #### GIPANEL #### [facility] [address] [address] [address] Ray BenjaminpovirusNot detectedNormalNOT DETECTEDPromedica [facility] Comment on above:Performed By: #### GIPANEL #### [facility] [address] [address] [address] Ray FabianSTECNot detectedNormalNOT DETECTEDThe [facility] CenterComment on above:Performed By: #### GIPANEL #### [facility] [address] [address] [address] Ray BlumioNot detectedNormalNOT DETECTEDPromedica Fostoria Community HospitalComment on above:Performed By: #### GIPANEL #### [facility] [address] [address] [address] Ray Blumio CholeraNot detectedNormalNOT DETECTEDPromedica [facility] Comment on above:Performed By: #### GIPANEL #### [facility] [address] [place] [address] Dr. Ray Degroot. EnterocoliticaNot detectedNormalNOT DETECTEDPromedica Fostoria Community HospitalComment on above:Performed By: #### GIPANEL #### [facility] [address] [address] [address] Ray Rivera URINEon [id number] URINECulture Observations: No growthNormalThe [facility] CenterComment on above:Performed By: #### CBC #### [facility] [address] [address] [address] Ray Munoz RANDOM W/MICROSCOPICon [id number] SEENNormalNONE SEENPromedica Fostoria Community HospitalComment on above:Performed By: #### UAMIC #### [facility] [facility] [address] [address] [address] Ray Quintanilla Ql (U)NegativeNormalNEGATIVEPromedica Fostoria Community Hospital Comment on above:Performed By: #### UAMIC #### [facility] [address] [address] [address] Ray FabianCASTNONE SEENNormalNONE SEENPromedica Fostoria Community HospitalComment on above:Performed By: #### UAMIC #### [facility] [address] [address] [address] Ray FabianClarity (U)CLEARNormalCLEARPromedica Fostoria Community HospitalComment on above: Performed By: #### UAMIC #### [facility] [address] [address] [address] Ray Sanchezlor (U)YELLOWNormalYELLOWPromedica Fostoria Community HospitalComment on above: Performed By: #### UAMIC #### [facility] [address] [address] [address] Ray FabianCrystals LM Nom (Urine sed)NONE SEENNormalNONE SEENPromedica Fostoria Community HospitalComment on above:Performed By: #### UAMIC #### [facility] [address] [place] [address] Dr. Bell ChangEpithelial cells LM Ql (Urine sed)NONE SEENNormalNONE SEEN /RARE The [facility] Medical CenterCommclaren thumb region on above:Performed By: #### UAMIC #### [facility] [address] [place] [address] Dr. Ray FabianGlucose Ql (U)NegativeNormalNEGATIVEPromedica Fostoria Community HospitalComment on above:Performed By: #### UAMIC #### [facility] [address] [place] [address] Dr. Ray FabianHemoglobin Ql (U)NegativeNormalNEGATIVEProtestant Hospital on above:Performed By: #### UAMIC #### [facility] [address] [place] [address] Dr. Ray FabianKetones Ql (U)NegativeNormalNEGATIVEPromedica Fostoria Community HospitalComment on above:Performed By: #### UAMIC #### [facility] [address] [address] [address] Ray FabianLEUKOCYTESNegativeNormalNEGATIVEPromedica Fostoria Community HospitalCommclaren thumb region on above:Performed By: #### UAMIC #### [facility] [address] [place] [address] Dr. Ray FabianMUCOUSNONE SEENNormalNONE SEENPromedica Fostoria Community HospitalComment on above:Performed By: #### UAMIC #### [facility] [address] [place] [address] Dr. Ray Arredondotrluis Ql (U)NegativeNormalNEGATIVEThe [facility]'S Medical CenterComment on above:Performed By: #### UAMIC #### [facility] [address] [place] [address] Dr. aRy FabianpH (U)6.0 [pH]Normal5-9The [facility]S Medical CenterComment on above: Performed By: #### UAMIC #### [facility] [address] [place] [address] Dr. Ray FabianRBCNADELFO SEENAbnormal0-2The [facility]S Medical CenterComment on above: Performed By: #### UAMIC #### [facility] [address] [place] [address] Dr. Ray FabianSPEC GRAVITY1.850Pmtwxh6.005-<=1.025The [facility]'S Medical CenterComment on above:Performed By: #### UAMIC #### [facility] [address] [place] [address] Dr. Ray Munoz PROTEINNegativeNormalNEGATIVE/ TRACEThe [facility] Comment on above:Performed By: #### UAMIC #### [facility] [address] [place] [address] Dr. Ray Avalosbilinogen Qn (U)0.2 {Praveena'U}/dLNormal0.2 - 1.0The [facility] Medical CenterComment on above:Performed By: #### UAMIC #### [facility] [address] [place] [address] Dr. Ray FabianWBCNONE SEENNormalNONE SEENThe [facility]S Medical CenterComment on above: Performed By: #### UAMIC #### [facility] [address] [place] [address] Dr. Ray Rivera URINEon 81-54-7295GLRODAA URINEIsolate 1 Pseudomonas aeruginosa 30,000 cfu/mL of ORGANISM 1 Pseudomonas aeruginosa ANTIBIOTIC M.I.C RX STATUS Ceftazidime 4 S F Imipenem 1 S F Amikacin 4 S F Gentamicin <=1 S F Tobramycin <=1 S F Ciprofloxacin <=0.25 S F Levofloxacin 0.25 S FNormalPromedica Fostoria Community HospitalComment on above:Performed By: #### CBC #### [facility] [address] [place] [address] Dr. Ray Munoz RANDOM W/MICROSCOPICon 33-34-2037RPOGMEVISWJIXIkxobihjOXOQ SEENPromedica Fostoria Community HospitalComment on above:Performed By: #### UAMIC #### [facility] [address] [place] [address] Dr. Ray Quintanilla Ql (U)NegativeNormalNEGATIVEProtestant Hospital on above:Performed By: #### UAMIC #### [facility] [address] [place] [address] Dr. Ray Blackburn SEENNormalNONE SEENPromedica Fostoria Community HospitalCommclaren thumb region on above:Performed By: #### UAMIC #### [facility] [address] [place] [address] Dr. Ray Childress (U)CLOUDYAbnormalCLEARThMercy Memorial HospitalCommclaren thumb region on above:Performed By: #### UAMIC #### [facility] [address] [place] [address] Dr. Ray Antonio (U)BROWNAbnormalYCleveland Clinic Akron GeneralCommclaren thumb region on above:Performed By: #### UAMIC #### [facility] [address] [place] [address] Dr. Ray Tanner LM Nom (Urine sed)NONE SEENNormalNONE SEENPromedica Fostoria Community HospitalCommclaren thumb region on above:Performed By: #### UAMIC #### [facility] [address] [place] [address] Dr. Bell ChangEpithelial cells LM Ql (Urine sed)FEWAbnormalNONE SEEN /RAREPromedica Fostoria Community HospitalCommclaren thumb region on above:Performed By: #### UAMIC #### [facility] [address] [place] [address] Dr. Ray Goff Ql (U)NegativeNormalNEGATIVEThe Ashley HospitalComment on above:Performed By: #### UAMIC #### [facility] [address] [address] [address] Ray FabianHemoglobin Ql (U)LARGEAbnormalNEGCleveland Clinic Mercy Hospital Comment on above:Performed By: #### UAMIC #### [facility] [address] [place] [address] Dr. Ray FabianKetones Ql (U)TRACEAbnormalNEGATIVEPromedica Fostoria Community HospitalComment on above:Performed By: #### UAMIC #### [facility] [address] [place] [address] Dr. Ray FabianLEUKOCYTESTRACEAbnormalNEGCleveland Clinic Mercy HospitalComment on above:Performed By: #### UAMIC #### [facility] [address] [place] [address] Dr. Ray FabianMUCOUSSMALLAbnormalNONE SEENThe [facility] Medical CenterComment on above:Performed By: #### UAMIC #### [facility] [address] [place] [address] Dr. Ray Arredondotrite Ql (U)NegativeNormalNEGCleveland Clinic Mercy HospitalComment on above:Performed By: #### UAMIC #### [facility] [address] [place] [address] Dr. Ray Bahena (U)5.0 [pH]Normal5-9Prom[facility] HospitalComment on above: Performed By: #### UAMIC #### [facility] [address] [place] [address] Dr. Ray MartinezC (U) [#/Vol]/uLAbnormal0-2The [facility] Medical CenterComment on above:Performed By: #### UAMIC #### [facility] [address] [place] [address] Dr. Ray FabianSPEC GRAVITY>=1.221Kfwkriqi6.005-<=1.025The [facility] Comment on above:Performed By: #### UAMIC #### [facility] [address] [place] [address] Dr. Ray Munoz MRWFJPZ397 mg/dlAbnormalNEGATIVE/ TRACEThe [facility] Comment on above:Performed By: #### UAMIC #### [facility] [address] [place] [address] Dr. Ray Cobos Qn (U)1.0 {Praveena'U}/dLNormal0.2 - 1.0The [facility] Medical CenterComment on above:Performed By: #### UAMIC #### [facility] [address] [place] [address] Dr. Ray FabianWBC2-5AbnormalNONE SEENThe [facility] CenterComment on above: Performed By: #### UAMIC #### [facility] [address] [place] [address] Dr. Ray Guardado T3on 14-94-6265ZJFA T32.31 pg/mlLCritically low2.77-5.27The [facility] Medical CenterComment on above:Performed By: #### TSH, FT3 #### [facility] [address] [place] [address] Dr. Ray Guardado T4on 62-82-8424Cpfx T4 [Mass/Vol]0.88 ng/dLNormal0.78-2.[address] [facility] Medical CenterComment on above:Performed By: #### FT4 #### [facility] [address] [place] [address] Dr. Ray Mesa 71-78-5457PRI3.608 uIU/mLNormal0.470-4.680The [facility] Medical CenterComment on above:Performed By: #### TSH, FT3 #### [facility] [address] [place] [address] Dr. Ray Bateman [facility] BELOWNormalThe [facility] Medical CenterComment on above: Result Comment: <0.34 UIU/ml HYPERTHYROID 0.34-5.60 UIU/ml EUTHYROID >5.60 UIU/ml HYPOTHYROIDPerformed By: #### TSH, FT3 #### [facility] [address] [place] [address] Dr. Ray FabianGynecology Office/Clinic Noteon [id number] Office/Clinic NoteChief Complaint USN follow up History of Present Illness Age of Menopause: 50 years Pelvic pain: NoSpotting: No Additional HPI details: 67 y/o, , [...] February 04, 2018 10:22 EST Encounter info: [id number], [facility], Clinic, 02/04/2018 - [1] Colonoscopy 12/04/2015. [2] [...] Lung cancer: Sibling. Thyroid disease: Mother.[1] USTV Transvaginal; Jacque Smith 02/04/2018 10:22 EST[2] Annual; Mckenzie Garcia PA-C 01/29/2018 10:39 ESTElectronically signed by Oneida Garcia PA-C 02/04/18 11:50 ESTNoMagruder Memorial HospitalUS Transvaginalon [id number] TransvaginalEXAM(S) PREFORMED:Transvaginal ultrasoundINDICATIONS:Right adnexal fullnessLMP: Post-menopauseUTERUS: 5.1 x 3.6 x 2.6 cmENDOMETRIAL THICKNESS: 4 mmLEFT OVARY: 1.3 x 1.2 x 0.9 cmLT FOLLICLE:RIGHT OVARY: 1.5 x 1.1 x 1.0 cmRT FOLLICLE:COMMENTS:IMPRESSION:Anteverted, atrophic, heterogeneous uterus consi stent with patient's postmenopausal status. Endometrial lining is appropriate thickness for postmenopausal, measuring 4 mm, and is somewhat ill-defined. No obvious endometrial or uterine mass is visualized.Significant amount of peristalsing bowel is seen in both the right and left adnexa, making itdifficult to visualize the ovaries.Bilateral ovaries were sub-visualized appearing atrophic, normalfor postmenopausal patient. No obvious ovarian cyst or mass seen.No pelvic free fluid is seen.Transabdominal scan was attempted to better visualize the pelvic organs, however the large amount of bowel present in the pelvis obscured anything being visualized abdominally. Final Signed by: Elisha Josue DO (Electronic Signature): 02/04/2018 1:31 pmTranscribed by: MARCUSTranscribed DT/TM: 02/04/2018 10:56(If Report Is Signed, Electronically Signed in Other Vendor System)Western [facility] HospitalAmbulatory Patient Educationon 59-20-6039Uwgbjcggxc Patient EducationPatient Education MaterialsName: Maria Douglass Current Date: 01/31/2018 10:55:40 [place]: 1950 following sheet(s) are the Patient Education Leaflets for [facility]lassBlue [facility] Hospital: Breast Self-AwarenessWhat is breast self- awareness?Breast self-awareness is knowing how your breasts normally look and feel. Your breasts change as you go through different stages of your life. So it's important to learn what is normal for your breasts. Breastself-awareness helps you notice any changes in your breasts right away. Report any changes to your healthcare provider.Why is breast self-awareness important?Many experts now say that women should focus on breast self-awareness instead of doing a breast self-examination (BSE). These experts includethe [place] Cancer Society, the U.S. Preventive Services Task Force, and the [place] [employer] of Obstetricians and Gynecologists. Some experts even advise not teaching women to do a BSE. That's because research hasn't shown a clear benefit to doing BSEs.Breast self- awareness is different than a BSE. Breast self-awareness isn't about following a certain method and schedule. It's about knowing what's normal for your breasts. That way you can notice even small changes right away. If you see any changes, report them to your healthcare provider.Changes to look forCall your healthcare provider ifyou find any changes in your breasts that [...] find a lump. But it's important to contactyour provider right away. Remember that most breast lumps are benign. This means they are not cancer.? 5814-3128 [employer]. [address] [place] [address]. All rights reserved. This information is not intended as a substitute for professional medical care. Always follow your healthcare professional's instructions.[facility] HospitalObstetrics Office/Clinic Noteon [id number] Office/Clinic NoteChief Complaint AnnualHistory of Present Illness Age of [...] (1st grade to college) Mammogram 04/09/2017 @ [facility]-Benign. Bone Density 11/28/2016@ [facility]-Normal. She is taking vitamin D 1000IU daily and gets calcium through her diet. Colonos copy 12/04/2015. PCP Dr. Hill in [place] does yearly check and does routine labs.Review [...] conjunctiva. HEENT: Normocephalic, normal hearing, no scleral icterus.Neck: Supple, non-tender, no thyromegaly. Lungs: Clear to auscultation, non-labored respiration. Heart: Normal rate, regular rhythm, no murmur, gallop or edema. Abdomen: Soft, non-tender, non-distended, no masses. Musculoskeletal: Normal range of motion and strength, no tenderness or swelling. Skin: Skin is warm, dry and pink, no rashes or lesions. Neurologic: Awake, alert, and no acute distress.Psychiatric: Cooperative, appropriate mood and affect. Breast exam: no masses, no tenderness, no skin changes or nipple discharge. External Genitalia: normal urethral meatus, no lesions, vulvar skin i ntact. Genitourinary:atrophic vaginal mucosa, no lesions or abnormal [...] fullness. f/u with me after ultrasound.Problem List/Past MedicalHistory Ongoing No qualifying data Historical HypothyroidismProcedure/Surgical History right ankle (2008), d&c, hernia repair, tubal ligation.Medications glucosamine, Oral Melatonin, HS (at bedtime) multivitamin, Daily Vitamin D3 1000 intl units oral capsule, 1000 International_unit, 1 caps, Oral, DailyAllergies No Known AllergiesSocial History Alcohol Current Nutrition/Health Caffeine intakeamount: occas. Sexual Sexually active: Yes. Substance Abuse Denies All Tobacco Never (less than 100in lifetime) Use:.Family History Alcoholism: Father. Breast cancer: Grandmother (P). Cardiac disorder: Father. Hypertension 20-JAN-2016 18:09:58<$>: Father. Lung cancer: Sibling. Thyroid disease: Mother.Electronically signed by Mckenzie Garcia PA-C 01/29/18 10:41 [facility] Medical CenterAmbulatory Patient Educationon 19-07-9537Kyavlsvztg Patient EducationPatient Education MaterialsName: Maria Douglass Current Date: 01/27/2018 11:40:45 [place]OB: 1950 following sheet(s) are the Patient Education Leaflets for Maria DouglassM[facility]General [facility]: Breast Self-AwarenessWhat is breast self-awareness?Breast self-awareness is knowing how your breasts normally look and feel. Your breasts change as you go through different stages of your life. So it's important to learn what is normal for your breasts. Breastself-awareness helps you notice any changes in your breasts right away. Report any changes to your healthcare provider.Why is breast self-awareness important?Many experts now say that women should focus on breast self-awareness instead of doing a breast self-examination (BSE). These experts includethe [place] Cancer Society, the U.S. Preventive Services Task Force, and the [place] Congress of Obstetricians and Gynecologists. Some experts [...] provider.Changes to look forCall your healthcare provider ifyou find any changes in your breasts that concern you. These changes may include:? A lump? Nipple di scharge other than breastmilk, especially a bloody discharge? [...] find a lump. But it's important to contactyour provider right away. Remember that most breast lumps are benign. This means they are not cancer.? 7387-3289 [employer]. [address] [place] [address], [place] [address]. All rights reserved. This information is not intended as a substitute for professional medical care. Always follow your healthcare professional's instructions.NormalBlanchard Valley Health System Vital Signs Date TimeVital SignValuePerforming VzgapysdjQyfvjbvx93-86-5893 10:05-0500Body otiakr768.6 cmPacc 1 Work Phone: [facility]11-25-2024 10:05-0500Body mass index (BMI) [Ratio]21.19 kg/m2Pacc 1 Work Phone: [facility]11-25-2024 10:05-0500Body temperature 98.49 [degF]Pacc 1 Work Phone: [facility]11-25-2024 10:05-0500Body emsxgc16 kg Pacc 1 Work Phone: [facility]11-25-2024 10:05-0500Diastolic blood qoujivcy07 mm[Hg]Pacc 1 Work Phone: [facility]11-25-2024 10:05-0500Heart rate71 /min Pacc 1 Work Phone: [facility]11-25-2024 10:05-0500Respiratory rate 14 /minPacc 1 Work Phone: [facility]11-25-2024 10:05-2419VqQ4% (BldA) [Mass fraction]99 %Pacc 1 Work Phone: [facility]11-25-2024 10:05-0500Systolic blood eeqcgjva661 mm[Hg]Pacc 1 Work Phone: [facility] Encounters Encounter DateEncounter TypeCare ProviderFacilityStart: 07-24-2024 End: 19-61-0094Ndpcwgq encounter procedureWkana García MD Work Phone: OphthalmologyComment on above:After-cataract of right eye with vision obscured (Primary Dx); After-cataract of left eye with vision obscured; Pseudophakia of both eyesStart: 07-24-2024 End: 81-45-4978trkzlyxpwnCATUHQ S CRAMERFacility:[facility] Hospitaltart: 03-04-2024 End: 57-34-9274qdggqliwbfTQNZXG S DEANNEcility:[facility] Hospitaltart: 02-26-2024 End: 92-59-5313cjxeudstmiXJWNHC S [facility]ality:[facility]: 02-17-2024 End: 31-32-8581Bmmatbt encounter procedureEye Measurements Work Phone: OphthalmologyComment on above:Combined forms of age- related cataract of right eye; Combined forms of age-related cataract of left eyeStart: 02-17-2024 End: 16-89-4558Jrzrkyhvj to establishmentJackson South Medical Center 1 Work Phone: Pre AnesthesiaStart: 02-17-2024 End: 05-81-3014szlpafwzjxFDQHSD S MIRNASamaritan North Health Centerity:[facility] Hospitaltart: 02-17-2024 End: 35-58-9798Igjdxifymz consultationJackson South Medical Center 1 Work Phone: pre AnesthesiaComment on above:Pre-op evaluation (Primary Dx)Start: 39-64-4742Twwlrbkrm for other preprocedural examinationSelect Medical [facility] Clinic Rehabilitation Hospital, AvonStart: 02-17-2024 End: 25-46-9229Qynebspwnyntp examination [facility] 1 Work Phone: [facility] Work Phone: Start: 01-07-2024 End: 37-56-9300ftkmfdbwkmPMLLFY S DEANNEMulticare [facility] Hospitality:[facility] Hospitaltart: 01-07-2024 End: 38-77-4171Ieudseu encounter procedureYaneli García MD Work Phone: OphthalmologyComment on above:Combined forms of age- related cataract of right eye (Primary Dx); Combined forms of age-related cataract of left eye; Keratoconjunctivitis sicca of both eyes not specified as Sjogren's; Wears contact lenses; PVD (posterior vitreous detachment), bilateralStart: 03-26-2022 End: 30-05-5939pqggjprnklVI MARY Ren WESTFacility:G9Xhzrk: 01-08-2022 End: 58-86-5330pxxcufwlzrHDZKTU CRAMERFacility:S0Svtai: 12-08-2021 End: 24-03-5799rstijcfxxeLBQSHG CRAMERFacility:X8Uezal: 11-30-2021 End: 87-57-6920pzradloupxAAAJHG CRAMERFacility:V1Jbdjx: 11-20-2021 End: 05-87-4778nuftikuxrcOTOBME CRAMERFacility:L0Wocdk: 09-26-2021 End: 02-07-0833iabtxlrphnDK THELMA HOYFacility:K1Iqgba: 09-01-2021 End: 46-91-8707cldwgvjzynNTBKWI CRAMERFacility:G4Mtktj: 08-22-2021 End: 72-64-1154swfixsjvrdMXMJBV CRAMERFacility:N5Fvgzj: 06-26-2021 End: 89-09-6506wrzfwfuduhANGDY TRACYBAGHFacility:N0Uagub: 02-04-2018 End: 67-48-6729Yixblrs encounter procedureAUANUEL GARCIAFacility:[facility] - EWOCStart: 02-04-2018 End: 56-07-8518Slqzmio encounter procedureELISHA JOSUEFacility:[facility] Hospitaltart: 01-29-2018 End: 93-05-4198Ajviblw encounter procedureAUANUEL GARCIAFacility:[facility] EW Procedures DateProcedureProcedure DetailPerforming ClinicianStart: 72-45-3103Tjgi-cataract laser surgeryWkana García MD Work Phone: Start: 60-18-1474Bfcv-cataract laser surgeryYaneli García MD Work Phone: Start: 28-07-3923SRI BIOMETRY W/ IOL CALC OU (BOTH EYES)Yaneli García MD Work Phone: Start: 85-20-3877XNVHG ONLY - DIAGNOSTIC OU (BOTH EYES)Yaneli García MD Work Phone: Plan of Treatment DateCare ActivityDetailAuthorStart: 62-50-5808NGI Vaccine (1 - 1-dose 75+ series)RSV Vaccine (1 - 1-dose 75+ series)[facility]: 01-20-2025 End: 50-12-1245UZVEDID TOPOGRAPHY ATLAS OU (BOTH EYES)CORNEAL TOPOGRAPHY ATLAS OU (BOTH EYES) OPHT Imaging Routine Combined forms of age-related cataractof right eye Combined forms of age-related cataract of left eye Expected: 01/20/2025, Expires: 06/29/2025leveland ClinicComment on above:Expected: 01/20/2025, Expires: 06/29/2025Start: 01-06-2025 End: 67-81-9849GZWYB ONLY - DIAGNOSTIC OU (BOTH EYES)ASCAN ONLY - DIAGNOSTIC OU (BOTH EYES) OPHT Imaging Routine Combined forms of age-related cataract of right eye Combined forms of age-related cataract of left eye Expected: 01/06/2025, Expires: 06/30/2025[facility] SpringfieldComment on above:Expected: 01/06/2025, Expires: 06/30/2025Start: 01-06-2025 End: 74-24-5082HON BIOMETRY W/ IOL CALC OU (BOTH EYES)IOL BIOMETRY W/ IOL CALC OU (BOTH EYES) OPHT Imaging Routine Combined forms of age-related cataractof right eye Combined forms of age-related cataract of left eye Expected: 01/06/2025, Expires: 06/30/2025[facility] Medical CenterComment on above:Expected: 01/06/2025, Expires: 06/30/2025Start: 12-31-2024 End: 79-92-0696JIT MACULA CIRRUS OU (BOTH EYES)OCT MACULA CIRRUS OU (BOTH EYES) OPHT Imaging Routine Combined forms of age-related cataract of right eye Combined forms of age-related cataract of left eye Expected: 12/31/2024, Expires: 06/29/2025[facility] Work Phone: Comment on above:Expected: 12/31/2024, Expires: 06/29/2025Start: 32-96-3191Tceardtpk vaccinationInfluenza Vaccine (Season Ended) [facility]tart: 80-06-5907Azhhvcf Directive DiscussionAdvance Directive DiscussionLima Memorial Hospitaltart: 03-04-2024 End: 33-49-7161Rynkgnqnt to same day surgery bqlvtk1903/04/2024 9:25 AM EST - 03/04/2024 10:00 AM EST Surgery Ambulatory Surgery [address] [place] [address] Yaneli García MD [address] [facility] [place] [address] PHACOEMULSIFICATION CATARACT IMPLANT INTRAOCULAR LENS W/O ENDOSCOPICCYCLOPHOTOCOAGULATIONAmbulatory SurgeryComment on above:PHACOEMULSIFICATION CATARACT IMPLANT INTRAOCULAR LENS W/O ENDOSCOPIC CYCLOPHOTOCOAGULATIONStart: 03-04-2024 End: 00-45-7206Wbw bmtry prtl coher intrfrmtry io lens pwr calOPHTHALMIC BIOMETRY BY PARTIAL COHERENCE INTERFEROMETRY W/INTRAOCULAR LENS POWER CALCULATION Combined forms of age-related cataract of right eye 03/04/2024 9:25 AM [facility] [place]Start: 69-44-7435Lwiftybtcf hospital visit by physician 03/04/2024 9:25 AM [facility] Hospital Encounter Ambulatory Surgery [address] [place] [address] Yaneli García MD [address] [facility] [place] [address] Combined forms of age- related cataract of right eye [H25.811]Ambulatory SurgeryComment on above: Combined forms of age-related cataract of right eye [H25.811]Start: 03-04-2024 End: 49-53-5191Limwir ctrc rmvl insj io lens prosth w/o ecpPHACOEMULSIFICATION CATARACT IMPLANT INTRAOCULAR LENS W/O ENDOSCOPIC CYCLOPHOTOCOAGULATION Combined forms of age-related cataract of right eye 03/04/2024 9:25 AM [facility] Start: 02-26-2024 End: 89-28-8086Crtmaoqok to same day surgery dtrbri7802/26/2024 12:35 PM EST - 02/26/2024 1:10 PM EST Surgery Ambulatory Surgery [address] [facility] [place] [address] Yaneli García MD [address] [facility] [place] [address] PHACOEMULSIFICATION CATARACT IMPLANT INTRAOCULAR LENS W/O ENDOSCOPICCYCLOPHOTOCOAGULATIONAmbulatory Surgery Comment on above:PHACOEMULSIFICATION CATARACT IMPLANT INTRAOCULAR LENS W/O ENDOSCOPIC CYCLOPHOTOCOAGULATIONStart: 02-26-2024 End: 52-97-7247Evh bmtry prtl coher intrfrmtry io lens pwr calOPHTHALMIC BIOMETRY BY PARTIAL COHERENCE INTERFEROMETRY W/INTRAOCULAR LENS POWER CALCULATION Combined forms of age-related cataract of left eye 02/26/2024 12:35 PM [facility]: 79-26-7310Gihtttzyqo hospital visit by physician 02/26/2024 12:35 PM EST Hospital Encounter Ambulatory Surgery [address] [place] [address] Yaneli García MD [address] [facility] [place] [address] Combined forms of age- related cataract of left eye [H25.812]Ambulatory SurgeryComment on above: Combined forms of age-related cataract of left eye [H25.812]Start: 02-26-2024 End: 15-88-6904Jvncsq ctrc rmvl insj io lens prosth w/o ecpPHACOEMULSIFICATION CATARACT IMPLANT INTRAOCULAR LENS W/O ENDOSCOPIC CYCLOPHOTOCOAGULATION Combined forms of age-related cataract of left eye 02/26/2024 12:35 PM [facility] Start: 02-24-2024 End: 58-97-2453Bepqycfrz to same day surgery zlwdst3802/24/2024 11:05 AM EST - 02/24/2024 11:40 AM EST Surgery Ambulatory Surgery [address] [place] [address] Yaneli García MD [address] [facility] [place] [address] PHACOEMULSIFICATION CATARACT IMPLANT INTRAOCULAR LENS W/O ENDOSCOPIC CYCLOPHOTOCOAGULATIONAmbulatory SurgeryComment on above:PHACOEMULSIFICATION CATARACT IMPLANT INTRAOCULAR LENS W/O ENDOSCOPIC CYCLOPHOTOCOAGULATIONStart: 02-24-2024 End: 47-45-8463Cat bmtry prtl coher intrfrmtry io lens pwr calOPHTHALMIC BIOMETRY BY PARTIAL COHERENCE INTERFEROMETRY W/INTRAOCULAR LENS POWER CALCULATION Combined forms of age-related cataract of left eye 02/24/2024 11:05 AM [facility]: 06-25-5573Shkfnsuknp hospital visit by physician 02/24/2024 11:05 AM EST Hospital Encounter Ambulatory Surgery [address] [place] [address] Yaneli García MD [address] [place] [address] Combined forms of age- related cataract of left eye [H25.812]Ambulatory SurgeryComment on above: Combined forms of age-related cataract of left eye [H25.812]Start: 02-24-2024 End: 66-17-3723Vvdlaa ctrc rmvl insj io lens prosth w/o ecpPHACOEMULSIFICATION CATARACT IMPLANT INTRAOCULAR LENS W/O ENDOSCOPIC CYCLOPHOTOCOAGULATION Combined forms of age-related cataract of left eye 02/24/2024 11:05 AM [facility] Start: 02-17-2024 End: 03-46-0831Bptjpbq encounter gkshhyitw02/25/2024 11:00 AM EST Office Visit [facility] [address] [facility] [place] [address] CATARACT SURGERY LEFT THEN RIGHT -STAR / COMANAGEDOphthalmologyComment on above:CATARACT SURGERY LEFT THEN RIGHT -STAR / COMANAGEDStart: 02-17-2024 End: 89-80-9185Ffpvesiif to same day surgery gjolqp4502/17/2024 10:20 AM EST PAT Pre Anesthesia [address] [facility] [place] [address] 1,Pacc Superior [address] [facility] [place] [address] CATARACT SURGERY LEFT THENRIGHT -STAR / COMANAGEDPre AnesthesiaComment on above: CATARACT SURGERY LEFT THEN RIGHT -STAR / COMANAGEDStart: 01-07-2024 End: 74-33-8489ANKMOGB TOPOGRAPHY PENTACAM OU (BOTH EYES)CORNEAL TOPOGRAPHY PENTACAM OU (BOTH EYES) OP[facility] Imaging Routine Combined forms of age-related cataract of right eye Combined forms of age-related cataract of left eye Expected: 01/07/2024, Expires: 06/29/2025leveland ClinicComment on above: Expected: 01/07/2024, Expires: 06/29/2025Start: 17-43-7035Dnbyy-19 Vaccine ()Covid-19 Vaccine ()[facility]: 98-72-7660Ivmuhvsvu vaccinationInfluenza Vaccine (#1)[facility]: 63-60-1598Qjjuzpn Directive DiscussionAdvance Directive DiscussionLima [facility] Hospitaltart: 45-97-5850Vrvvdqwjbitz Vaccine: 50+ (2 of 2 - PPSV23)Pneumococcal Vaccine: 50+ (2 of 2 - PPSV23)[facility]: 00-07-1062Xaqwemrtfsem Vaccine: 65+ (2 of 2 - PPSV23 or PCV20)Pneumococcal Vaccine: 65+ (2 of 2 - PPSV23 or PCV20)[facility]: 24-04-5114Xrbdbnxzu for osteoporosisBone Density ScreeningLima Memorial Hospitaltart: 60-42-0661Fimwppds ScreeningDiabetes ScreeningLima Memorial Hospitaltart: 46-72-6565Pfmxh panelLipid ScreeningLima [facility] Hospitaltart: 25-17-3337Fsjqbojfy for malignant neoplasm of colonUniversity Hospitals [facility] Start: 69-45-3347Blppkjqrs for malignant neoplasm of breastMammogram Screening [facility]: 07-01-0757Djamm microalbumin profileDTaP,Tdap,Td Vaccine (1 - Tdap)[facility]: 36-62-6892Elcscjj ScreeningAnxiety Screening [facility]: 24-75-7718Sdcyjbrlnu ScreeningDepression Screening [facility]: 38-55-8435Jdhsxgkfe C screeningHepatitis C Screening [facility] CenterCORNEAL TOPOGRAPHY ATLAS OU (BOTH EYES)CORNEAL TOPOGRAPHY ATLAS OU (BOTH EYES) [facility] Imaging Routine Combined forms of age-related cataractof right eye Combined forms of age-related cataract of left eye 02/17/2024 11:30 AM [facility] Work Phone: Immunizations Immunization DateImmunizationNotesCare ExkanubbJweidrdw72-76-8305qqulzgsaj virus vaccine, unspecified formulationYaneli García MD Work Phone: [facility] Payers DatePayer CategoryPayerPolicy [id number] MEDICARE AETNA MEDICARE PPO [id number] 2023-Present [phone] [address] [place] [address] [id number] 2024Medicare (Managed Care)AET MEDICARE Member Subscriber Plan / Payer (Effective 2023- Present) Name: Maria Douglass Relation to Subscriber: Self Name: Maria Douglass Payer ID: 1 (NAIC) Type: PPO Address: [address] [place] [id number] Health [id number] [id number] 2.0.1.174074.3.57[id number] 2.0.1.301139.3.57[id number] 2.0.1.815603.3.57[id number] 2.16.840.1.476543.3.57[id number] 2.16.840.1.416137.3.57[id number] 2.16.840.1.109808.3.57[id number] 2.16.840.1.671922.3.57[id number] 2.16.840.1.232068.3.57[id number] 2.16.840.1.792365.3.57[id number] 2.16.840.1.493708.3.57[id number] 2.16.840.1.908342.3.57[id number] 2.16.840.1.757753.3.579.2.593 Social History DateTypeDetailFacilityTobacco smoking status NHISTobacco smoking consumption unknownLima Memorial Hospitaltart: 01-07-2024 End: 19-89-4184Msdjcok of Social functionLima Memorial Hospitaltart: 01-07-2024 End: 64-76-0166Zeas Deprivation IndexMercy Health Willard Hospital Score (1-100), lower number is lower znfj36SlwjonkdvLima Memorial Hospitaltart: 01-44-0607Odl assigned at birthNot on fileLima Memorial Hospitaltart: 99-22-9173Fitmiym smoking status NHIS Never smoked tobaccoLima Memorial Hospitaltart: 73-22-6894Soaexmx use and exposure Smokeless tobacco non-userLima Memorial Hospitaltart: 02-17-2024 End: 13-27-8387Xjfkqeviw beverage intakeCurrent drinker of alcohol (finding) [facility]: 21-35-8686Gynpxmy Ppcusou1s monthlyLima Memorial Hospitaltart: 53-29-6660Iob assigned at [facility] Medical Equipment Procedure CodeEquipment CodeEquipment Original TextEquipment IdentifierDates Ccw0t5.180 Mahsa Caballero [facility] - [id number]: 92-73-3190Wyb5t4.215 Mahsa Caballero [facility] - [id number]: 03-04-2024 Clinical Notes 01-07-2024 to 07-24-2024 Note Date & CkhiVvvpCbwdpdrs32-27-5181 NoteDate of Procedure 07/24/2024 [place]yffe Protocol Safety Checklist A moment of CARE was completed Sign In Patient/surrogate stated/verified date of , relevant allergies, intended procedure, patient name. Provider Confirms: Relevant labs, photos, and/or imaging studies have been reviewed: N/A. Intended patient and procedure match the source document(s) (e.g. consent, associated studies [imaging, pathology]). Consent obtained and matches the intended procedure. Correct side/site marked and visible: N/A. Medications required for procedure verified: N/A. Fire risk assessed and interventions discussed: N/A. Correct implant(s) confirmed including size and side: N/A. Sign Out All specimens are correctly labeled and sent: N/A. All instruments, equipment, possible retained foreign bodies accounted for. Post-procedure POC communicated to patient or surrogate: N/A. Post-procedure POC communicated to patient's multidisciplinary team: N/A. Anesthesia None. Pre Laser Meds 1-2 drops Tropicamide 1%. Laser Paramters Power: 1.5mJ. Total Spots: 34. Total Energy: 51mJ. Post Laser IOP 12 (Intraocular pressure by digital palpation ). Measured at: 1:35 PM. Home Going Prescription None. Notes No Intraocular lens pits No complications [facility]05-02-2025 NoteDate of Procedure 07/24/2024 [place]yffe Protocol Safety Checklist A moment of CARE was completed Sign In Patient/surrogate stated/verified patient name, date of , relevant allergies, intended procedure. Provider Confirms: Relevant labs, photos, and/or imaging studies have been reviewed: N/A. Intended patient and procedure match the source document(s) (e.g. consent, associated studies [imaging, pathology]). Consent obtained and matches the intended procedure. Correct side/site marked and visible: N/A. Medications required for procedure verified: N/A. Fire risk assessed and interventions discussed: N/A. Correct implant(s) confirmed including size and side: N/A. Sign Out All specimens are correctly labeled and sent: N/A. All instruments, equipment, possible retained foreign bodies accounted for. Post-procedure POC communicated to patient or surrogate: N/A. Post-procedure POC communicated to patient's multidisciplinary team: N/A. Anesthesia None. Pre Laser Meds 1-2 drops Tropicamide 1%. Laser Paramters Power: 1.5mJ. Total Spots: 61. Total Energy: 92mJ. Post Laser Meds None. Post Laser IOP 12 (Intraocular pressure by digital palpation ). Measured at: 1:37 PM. Home Going Prescription None. Notes Single Intraocular lens pit No complicationsUniversity Hospitals Cleveland Medical Center05-02-2025 NoteHNO ID: [id number] Author: YANELI GARCÍA MD Service: ? Author Type: Physician Type: [...] garnet (YAG) capsulotomy BOTH eyes by Dr. García, which was completed today. 3. Pseudophakia of both eyes - ICD9: V43.1, ICD10: Z96.1 Toric PC IOL both eyes (02/2024) by WM crowley; She is enjoying mini-monovision and going without glasses. Copy of today's visit note was sent to Dr. Banks Return to Dr. Banks in 2-4 weeks for VaTa/Refraction or sooner if needed. Yaneli García MD The documentation for this note was completed by OMA Ruth acting as a scribe for, and in the presence of, Dr. Yaneli García M.D. The documentation recorded by the scribe [...] with all of its relevant components. Yaneli García [facility]05-02-2025 History of Present illness Narrative* Yaneli García MD - 07/24/2024 1:07 PM EDT ASSESSMENT/PLAN: 1. After-cataract of right eye with [...] patient. Explained that risks include but are notlimited to: increase in intraocular pressure, retinal tears/detachment, dislocation of the intraocular lens, and/or need for further procedures. Retinal detachment warning symptoms were reviewed withpatient and she expresses understanding of the need [...] garnet (YAG) capsulotomy BOTH eyes by Dr. García, which was completed today. 3. Pseudophakia of both eyes - ICD9: V43.1, ICD10: Z96.1 Toric PC IOL both eyes (02/2024) by WM crowley; She is enjoying mini-monovision and going without glasses. Copy of today's visit note was sent to Dr. Banks Return to Dr. Banks in 2-4 weeks for VaTa/Refraction or sooner if needed. Yaneli García MD The documentation for this note was completed by OMA Ruth acting as a scribe for, and inthe presence of, Dr. Yaneli García M.D. The documentation recorded by the scribe accurately reflects the service I personally performed andthe decisions made by me. I have confirmed [...] and plan as stated above and agree withall of its relevant components. Yaneli García MD documented in this encounterUniversity Hospitals Cleveland Medical Center11-25-2024 NoteHNO ID: [id number] Author: TIANA MIMS COA Service: ? Author Type: Software Testing Specialist Type: Progress Notes Filed: 02/17/2024 11:35 Note Text: CONFIRM AIM PLANO LEFT EYE. AIM RIGHT EYE TO BE DETERMINED. TORIC IOL BOTH EYES. [facility] NoteDate of Procedure 02/17/2024. Software Testing Specialist Information OMA Coles . Notes Measurements only - see Procedure Record under Scanned Documents for signed results.[id number] History of Present illness Narrative* Tiana Mims COA - 02/17/2024 11:31 AM EST CONFIRM AIM PLANO LEFT EYE. AIM RIGHT EYE TO BE DETERMINED. TORIC IOL BOTH EYES. OMA Coles documented in this encounterUniversity Hospitals Cleveland Medical Center11-25-2024 NoteDate of Procedure 02/17/2024. Software Testing Specialist Information OMA Coles . Notes Ascan report in paper chart and scanned to patient chart after post op period. A-SCAN RIGHT EYE: 23.12 A-SCAN LEFT EYE: 23.59 [id number] History and physical note* Cecy Ramos APRN.JHONY - 02/17/2024 10:20 AM EST HISTORY AND PHYSICAL EXAMINATION SERVICE DATE: 02/17/2024 SERVICE TIME: 10:10 AM PRIMARY CARE PHYSICIAN: Susy Alicea CNP, GENERAL PRODUCTION WORKER REASON FOR VISIT: Maria Douglass is a 73 year old female who is scheduled for at the request of Dr. Yaneli García for consultation. My final recommendation will be [...] large neck Non-male patient STOP-Bang Score: 1 [id number]-KPWs Score: Age: <65 Sex: female CHF history: No Hypertension history: No Stroke/TIA/thromboembolism history: No Vascular disease history: No Diabetes history: No CQY1HF1-NSXs Score: 1 ARISCAT Score: Age: <=50 Preoperative [...] fevers. Neuro: No history of TIA's, stroke, HYDRO OPERATOR tumor, impaired sensorium, hemiplegia, paraplegia or quadraplegia. No neurological symptoms or problems. Respiratory: No history of current cough or dyspnea, or pneumonia in the past 6 weeks. No history of respiratory/pulmonary symptoms or problems. Cardiovascular: Negative for Recent [place], Angina, Chest Pain, PVD, DVT/PE GI: Negative for Nausea, Vomiting, Abdominal pain : Negative for dysuria, incontinence, hematuria, and hesitancy WEIGHBRIDGE OPERATOR: Negative for abnormal vaginal bleeding, abnormal vaginal discharge. : Denies, No LMP recorded. Patient is postmenopausal. Endocrine: No history of diabetes. Has not taken steroids within the past 30 days. No history of endocrinological symptoms or problems. Hematology: No history of bleeding or clotting disorder. Pt is not taking anti- coagulation or platelet medications. No history of hematological [...] Maria Douglass DATE: 02/17/2024 TIME: 10:10 AM [facility]11-25-2024 History and physical note* Cecy Ramos APRN.CNP - 02/17/2024 10:20 AM EST HISTORY AND PHYSICAL EXAMINATION SERVICE DATE: 02/17/2024 SERVICE TIME: 10:10 AM PRIMARY CARE PHYSICIAN: Susy Alicea CNP, JHONY REASON FOR VISIT: Maria Douglass is a 73 year old female who is scheduled for at the request of Dr. Yaneli García for consultation. My final recommendation will be [...] large neck Non-male patient STOP-Bang Score: 1 [id number]-ACEi Score: Age: <65 Sex: female CHF history: No Hypertension history: No Stroke/TIA/thromboembolism history: No Vascular disease history: No Diabetes history: No HUY1UJ3-MTYq Score: 1 ARISCAT Score: Age: <=50 Preoperative [...] fevers. Neuro: No history of TIA's, stroke, HYDRO OPERATOR tumor, impaired sensorium, hemiplegia, paraplegia or quadraplegia. No neurological symptoms or problems. Respiratory: No history of current cough or dyspnea, or pneumonia in the past 6 weeks. No history of respiratory/pulmonary symptoms or problems. Cardiovascular: Negative for Recent [place], Angina, Chest Pain, PVD, DVT/PE GI: Negative for Nausea, Vomiting, Abdominal pain : Negative for dysuria, incontinence, hematuria, and hesitancy WEIGHBRIDGE OPERATOR: Negative for abnormal vaginal bleeding, abnormal vaginal discharge. : Denies, No LMP recorded. Patient is postmenopausal. Endocrine: No history of diabetes. Has not taken steroids within the past 30 days. No history of endocrinological symptoms or problems. Hematology: No history of bleeding or clotting disorder. Pt is not taking anti- coagulation or platelet medications. No history of hematological [...] 02/17/2024 TIME: 10:10 AM documented in this encounterUniversity Hospitals Cleveland Medical Center11-24-2024 Instructions* Patient Instructions* Cecy Ramos APRN.CNP - 02/16/2024 7:17 PM EST Images from the original note were not included. [facility]est[facility] PATIENT PREOPERATIVE INSTRUCTIONS Your Surgeon has scheduled you for your procedure at this surgery center: [place]: [phone] --[address] [facility] [place] [address]. Please read below carefully for your personalized [...] Procedures: - YOU MUST HAVE A RESPONSIBLE MOUNTER BRASS W[employer] INSTRUMENTS TAKE YOU HOME. A STAFF WEAPONS OFFICER OR REGISTER OF WILLS CANNOT BE MADE A RESPONSIBLE MOUNTER [employer] INSTRUMENTS. - We recommend that a responsible person stays with you overnight to take care of you. - You cannot stay in a hotel alone after outpatient surgery. You will not be permitted to have yoursurgery, if you do not have someone to [...] Advance Directive, please fax a copy to [phone] or email to for it to be added to your chart. If you do not have an Advance Directive, you can find the appropriate form and more information at [email or web address]. We recommend that youcomplete the Advance Directive form found on the website and bring it with you the day of your surgery. It can be witnessed and scanned into your chart that day. Cecy Ramos APRN., CNP documented in this encounterUniversity Hospitals Cleveland Medical Center10-15-2024 NoteHNO ID: [id number] Author: YANELI GARCÍA MD Service: ? Author Type: Physician Type: [...] and in the presence of, Dr. Yaneli García M.D. 01/07/24 CORNEAL TOPOGRAPHY: right eye 1.2 [...] with insertion of intraocular lens by Dr. García OS / OD. Patient wishes to proceed with surgery. All questions were answered. A-scan to be performed pre-operatively. Referred by Dr. Banks, Thank you for your kind referral! Allergies: see list - Aim: [place] OS / TBD OD, possibly -1.50 OD. [...] floaters were discuss (more content not included)... [facility]10-[facility] History of Present illness Narrative* Yaneli García MD - 01/07/2024 11:52 AM EDT ASSESSMENT/PLAN: 1. Combined forms of age-related cataract [...] and in the presence of, Dr. Yaneli García M.D. 01/07/24 CORNEAL TOPOGRAPHY: right eye 1.2 [...] with insertion of intraocular lens by Dr. García OS/ OD. Patient wishes to proceed with surgery. All questions were answered. A-scan to be performed pre-operatively. Referred by Dr. Banks, Thank you for your kind referral! Allergies: see list - Aim: [place] OS / TBD OD, possibly -1.50 OD. Patient had CL aimed for distance. States she would take CL out of the right eye to see up close while having left eye able to see distance. Patient is right eye dominant. Determined in office today. However, she wants her right eye to be her reading eyeif she tolerates this after having her left [...] ultrasound, Intraocular lens calculations, and surgery. Yaneli García MD The documentation for this note was completed by Janette Aguilar, OMA acting as a scribe for, and inthe presence of, Dr. Yaneli García M.D. 01/07/24 The documentation recorded by the scribe accurately reflects the service I personally performed andthe decisions made by me. I have confirmed [...] and plan as stated above and agree withall of its relevant components. Yaneli García MD 01/07/24 documented in this encounterUC [facility]al[facility] note* Diagnosis Combined forms of age-related cataract [...] cataract documented in this encounter [facility] CenterEvalubayhealth [facility] note* Diagnosis Pre-op evaluation- Primary Preoperative examination, unspecified Combined forms of age-related cataract of left eye Other and combined forms of senile cataract Combined forms of age-related cataract of right eye Other and combined forms of senile cataract documented in this encounter [facility]* Diagnosis Combined forms of age-related cataract [...] cataract documented in this encounter [facility] CenterEval[facility] note* Diagnosis After-cataract of right eye with vision obscured- Primary After-cataract of left eye with vision obscured Pseudophakia of both eyes Lens replaced by other means documented in this encounter [facility] Summary Purpose Family History No Family History Records FoundNo Family History Records FoundNo Family History Records Found Advance Directives No Advanced Directives Records FoundDocuments on File TypeDate RecordedPatient RepresentativeExplanationAdvance Directive(s)02/17/2024 10:27 AM Additional Source Comments INFORMATION SOURCE (unrecogn ized section and content) DATE CREATED AUTHOR 03/02/2018 [facility] DATE CREATED AUTHOR AUTHOR'S ORGANIZ ATION 03/26/2022 [facility] DATE CREATED AUTHOR AUTHOR'S ORGANIZ ATION 07/29/2024 [facility] Source Comments (unrecognize d section and content) In the event this informatio n is protected by the Federal Confidentiality of Alcohol and Drug Abuse Patient Records regulations: The Federal rules restrict any use of the information to criminally investigate or prosecute any alcohol or drug abuse patient.[facility] Medical CenterIn the event this information is protected by the Federal Confidentiality of Alcohol and Drug Abuse Patient Records regulations: The Federal rules restrict any use of the information to criminally investigate or prosecute any alcohol or drug abuse patient.[facility] Medical CenterIn the event this information is protected by the Federal Confidentiality of Alcohol and Drug Abuse Patient Records regulations: The Federal rules restrict any use of the information to criminally investigate or prosecute any alcohol or drug abuse patient.[facility] Medical CenterIn the event this information is protected by the Federal Confidentiality of Alcohol and Drug Abuse Patient Records regulations: The Federal rules restrict any use of the information to criminally investigate or prosecute any alcohol or drug abuse patient.[facility] Reason for Visit (unrecogniz ed section and content) ReasonCommentsCataract EvaluationReasonCommentsAnesthesia ConsultReasonComments Pre-Op ExamReasonCommentsPosterior Capsule Opacification Evaluation Care Teams (unrecognized sec tion and content) Team MemberRelationshipSpecialtyStart DateEnd Date Susy Alicea CNP [address] [phone] PCP - GeneralInternal Bybisllt17/11/24Team MemberRelationshipSpecialtyStart Date End Date Susy Alicea CNP [address] [phone] PCP - GeneralInternal Qbxmgqdl67/11/24Team MemberRelationshipSpecialtyStart Date End Date Susy Alicea CNP [address] [phone] PCP - GeneralInternal Dzdhzivx18/11/24Team MemberRelationshipSpecialtyStart Date End Date Susy Alicea CNP [address] [phone] PCP - GeneralInternal Lytmlang88/11/24 FOR RECORDS PERTAINING TO PATIENTS WHO ARE [...] BE BASED ON THE PRIMARY CLINICAL RECORDS. [employer] [facility]. provides no warranty or guarantee of the accuracy or completeness of information in this document.
[2025-01-21 09:50] LABS: Hematocrit 40.1 % (36.0-48.0); Hemoglobin 12.9 g/dL (12.0-16.0); Immature Granulocytes Abs Auto 0.01 10^3/uL (0.00-0.03); Immature Granulocytes Pct Auto 0.2 % (0.0-0.5); Lymphocytes Absolute Auto 1.2 10^3/uL (1.2-3.8); Mean Corpuscular HGB Conc 32.2 g/dL (29.9-35.2); Mean Corpuscular Hemoglobin 30.4 pg (26.7-34.0); Mean Corpuscular Volume 94.4 fL (81.0-99.0); Platelet Count 213 10^3/uL (150-450); Red Blood Count 4.25 10^6/uL (4.20-5.40); White Blood Count 4.1 10^3/uL (4.0-11.0)
== END 2025-01-21 09:31 | disposition home or self-care (01) ==
PROVIDERS: PCP Nurse Practitioner Family; Visit Provider Nurse Practitioner Family
DX: D64.9 Anemia, unspecified (principal)
CPT/HCPCS: 36415; 85025